=== PATIENT | female | born 1965 | race Caucasian/White ===

== ENCOUNTER 2019-05-23 15:35 | Emergency (ER) | payer OTHER, SELFPAY ==
[2019-05-23 15:50] VITALS: BP 134/81; PULSE 75; RESP 18; TEMP 37.8; O2SAT 95
--- NOTE | 2019-05-23 16:35 | PC.NURSE ---
Verbal Dr Renner- apply L thumb spica velcro splint.
--- NOTE | 2019-05-23 16:38 | ED.EXTPRO ---
HPI - Extremity Problem General Chief complaint: Extremity Problem,Nontraumatic Stated complaint: pain in left wrist Source: patient Mode of arrival: ambulatory Limitations: no limitations History of Present Illness HPI Narrative: This patient is 54-year-old complaining of left wrist pain. It started 2 days ago while laying her 5-year-old down onto a bed. Since then she has had aching discomfort made worse by movement of her wrist or thumb. It is associated with discomfort in the left medial elbow. She has never had problems with this before. She cannot recall an incident where she could have injured this wrist. There has been no other joint swelling; no arthritis or gout. She is left-hand dominant Associated symptoms: denies other symptoms Related Data Home Medications Medication Instructions Recorded Confirmed albuterol sulfate 2 puff INHALATION Q4-6H PRN 05/23/19 05/23/19 amlodipine 5 mg PO DAILY 05/23/19 05/23/19 aspirin [Aspirin Low Dose] 81 mg PO DAILY 05/23/19 05/23/19 fluticasone propion-salmeterol 1 puff INHALATION DAILY 05/23/19 05/23/19 metoprolol tartrate 50 mg PO DAILY 05/23/19 05/23/19 Allergies Allergy/AdvReac Type Severity Reaction Status Date / Time amoxicillin [From Augmentin] Allergy Rash Verified 05/23/19 16:07 ciprofloxacin Allergy Rash Verified 05/23/19 16:07 clavulanic acid Allergy Rash Verified 05/23/19 16:07 [From Augmentin] hydrocodone [From Vicodin] Allergy Rash Verified 05/23/19 16:07 morphine Allergy Rash Verified 05/23/19 16:07 Penicillins Allergy Rash Verified 05/23/19 16:07 propoxyphene Allergy Rash Verified 05/23/19 16:07 [From Darvocet-N 100] Review of Systems Constitutional: Constitutional: Reports no additional constitutional complaints Cardiovascular: Cardiovascular: Denies chest pain Respiratory: Respiratory: Denies dyspnea Gastrointestinal: Gastrointestinal: Denies abdominal pain Musculoskeletal: Musculoskeletal: Reports no additional musculoskeletal complaints Integumentary/Breasts: Skin/Breast: Reports rash PMFSH Past Medical History Medical History Asthma Hypertension Social History Social History Gender identity (if verbalized by the patient): Female Exam Const: General: no acute distress HENMT: Head: normal to inspection Eyes: Conjunctivae: conjunctivae normal Skin: Rashes: no rashes Neuro: General: moves all extremities Other: sensory exam left u.e. intact Extrem: Other: Left dorsal wrist is larger than the right; appears to have minor swelling. There is no redness Tender to palpation over the left snuff box, thumb extensor tendon as well as in the mid-dorsal wrist extension crease. No ganglion cyst appreciated. Full wrist and elbow range of motion. Tender medial epicondyle when firmly palpated. Psych: Mental Status: mental status grossly normal Course Vital Signs Vital signs: Vital Signs Temperature 37.8 C H 05/23/19 15:50 Pulse Rate 75 05/23/19 15:50 Respiratory Rate 18 05/23/19 15:50 Blood Pressure 134/81 05/23/19 15:50 Pulse Oximetry 95 05/23/19 15:50 Temperature 37.8 C H 05/23/19 15:50 Pulse Rate 75 05/23/19 15:50 Respiratory Rate 20 05/23/19 16:47 Blood Pressure 134/81 05/23/19 15:50 Pulse Oximetry 95 05/23/19 15:50 MDM - Extremity (Nontraumatic) Differential Diagnosis Differential diagnosis: Likely other (overuse injury left wrist and medial epicondyle; tendonitis; de Quervain's tenosynovitis; contusion; med. epicondylitis. ) Discharge Plan Discharge Clinical Impression: Injury of wrist Patient Disposition: Home, Self-Care Condition: Stable Instructions: Wrist Sprain (ED) Additional Instructions: See Tramaine Gutierrez in 4 - 6 days. Wear splint, avoid use of left arm/hand for lifting Acetaminophen for pain. Prescriptions: No Action amlod
[2019-05-23 16:47] VITALS: RESP 20
== END 2019-05-23 16:47 | disposition home or self-care (01) ==
PROVIDERS: Emergency Provider Family Medicine; PCP Family Medicine
DX: S69.92XA Unspecified injury of left wrist, hand and finger(s), initial encounter (principal)
CPT/HCPCS: 99282; L3908

== ENCOUNTER 2024-08-13 13:23 | Inpatient (IN) | payer BC, SELFPAY ==
[2024-08-13] VITALS (30 sets, daily range): BP systolic 107–125; BP diastolic 50–72; PULSE 101–119; RESP 18–34; TEMP 36.1–37.4; O2SAT 83–97; BMI 30.4
--- NOTE | ~2024-08-13 | XR_ITS ---
XR chest 1V portable 08/13/2024 14:05 Indication: Shortness of breath Procedure: AP portable chest Comparison: 01/21/2018 Findings: Borderline heart size. There is pulmonary edema. No pleural effusion or pneumothorax. Impression: 1: Pulmonary edema. Reviewed, dictated and finalized at location A. Impression: 1: Pulmonary edema.
--- NOTE | ~2024-08-13 | CT_ITS ---
EXAMINATION: CTA chest PE protocol DATE: 08/13/2024 14:58 CDT INDICATION: Shortness of breath. Elevated d-dimer. TECHNIQUE: Computed tomographic angiography (CTA) of the chest was performed with 100 mL Omnipaque-35 0 intravenous contrast. The dose-length product was 506.80 mGy-cm. Maximum intensity projection 3D-re constructions of the aorta and other arteries were constructed by the technologist on a separate work station. COMPARISON: Chest x-ray dated 08/13/2024. FINDINGS: Study technically limited for evaluation of pulmonary embolism. No large central pulmonary embolism identified. Evaluation of the peripheral pulmonary arteries limited due to contrast bolus ti adrianne. Heart size normal. Small hiatal hernia. No significant pleural or pericardial effusion. No thor acic lymphadenopathy. Diffuse groundglass opacification is present with mosaic attenuation of the gee g parenchyma. No pneumothorax identified. No endobronchial lesions. No pneumothorax. Accentuated thor acic kyphosis. Mild-moderate thoracic spondylosis. Mild atherosclerosis of the aorta. IMPRESSION: 1. Diffuse groundglass opacification of both lungs with interlobular septal thickening, most likely p ulmonary edema. Differential diagnosis includes pneumonia and hypersensitivity pneumonitis. 2: Study limited for evaluation of pulmonary embolism due to contrast bolus timing. No large central pulmonary embolism. Reviewed, dictated and finalized at location A. IMPRESSION: 1. Diffuse groundglass opacification of both lungs with interlobular septal thi ckening, most likely pulmonary edema. Differential diagnosis includes pneumonia and hypersensitivity pneumonitis. 2: Study limited for evaluation of pulmonary embolism due to contrast bolus ti adrianne. No large central pulmonary embolism.
--- NOTE | 2024-08-13 13:25 | ECG_ITS ---
Test Date: 2024-08-13 13:53:39 Measurements Intervals [place] Rate: 116 P: 45 MA: 145 QRS: 64 QRSD: 86 T: 124 QT: 280 QTc: 390 Interpretive Statements SINUS TACHYCARDIA LOW QRS VOLTAGE IN PRECORDIAL LEADS [QRS DEFLECTION < 1.0 mV IN CHEST LEADS] NONSPECIFIC ST & T-WAVE ABNORMALITY ABNORMAL ECG No previous ECG available for comparison Electronically Signed On 08-14-2024 10:00:00 CDT by Phi Hayden M.D.
--- OUTSIDE RECORDS SUMMARY | 2024-08-13 13:26 | XMS_ITS | Encounter Summary ---
Author Organization [facility] Address [address] [place] [address] [place] [address] Phone Care Team Providers Care Able Bodied Tankerman Name Role Phone Mike Ward Primary Care Provider [phone] Encounter Details Date Type Department Care Team (Late st Contact Info) Description 11/04/2023 Transcribe Orders [facility] [address] [place] [address] Mike Ward PAC [address] [place] [address] Pain in right hip (Primary Dx); Pain in joint of right shoulder Social History Tobacco Use Types Packs/Day Years Used Date Smoking Tobacco: Never Assessed Comments Unknown Sex and Gender Information Value Date Recorded Sex Assigned at Not on file Legal Sex Female 12:37 AM CDT Gender Identity Not on file Sexual Orientation Not on file documented as of this encounter Plan of Treatment Not on file documented as of this encounter Visit Diagnoses Diagnosis Pain in right hip- Primary Pain in joint, pelvic region and thigh Pain in joint of right shoulder Pain in joint, shoulder region documented in this encounter Care Teams Able Bodied Tankerman Relationship Specialty Start Date End Date Mike Ward PAC [address] [place] [address] PCP - General Physician Ware Finisher 06/20/16 documented as of this encounter
--- OUTSIDE RECORDS SUMMARY | 2024-08-13 13:27 | XMS_ITS | Data Portability ---
[facility] [address] [facility] [place] [address] Care Team Providers Care Die Out Worker Name Role Phone PIPO WARD Primary Care Provider Assessment No assessment recorded. Plan of Treatment Reminders Order Date Submit Date Provider Last Modified By Organization Details Last Modified Time Details Appointments None recorded. Lab influenza virus A + B + SARS-CoV-2 (COVID19) Ag panel, rapid IA, upper respirator y specimen 2024 025 [facility] In-Office Order, Internal Use Only DO Not Attach Compendium DO Not Attach Compendium, Do Not Delete/merge, [id number] 15:15:09 rsv (respirato ry syncytial virus), rapid, nasopharyn geal 2024 025 ann In-Office Order, Internal Use Only DO Not Attach Compendium DO Not Attach Compendium, Do Not Delete/merge, [id number] 15:15:08 Referral physical therapist [facility] [address], [place], [address], 4 13:58:35 physical therapist referral 2023 024 [facility], [address], [place], [address], 4 13:58:45 physical therapist referral 2023 024 [facility], [address], [facility], [place], [address], 4 10:33:01 Procedures None recorded. Surgeries None recorded. Imaging XR, hip, unilateral 2023 024 [facility], 2 [facility], [place], [address], 4 09:06:49 Medication Orders omeprazole 20 mg capsule,de layed release 2024 [facility][id number], [address], [place], [place], [id number], 5 15:15:08 ondansetro n HCl 4 mg tablet 2024 [facility]25 [id number], [address], [place], [place], [id number], 5 15:15:07 fluoxetine 20 mg capsule 2023 024 [facility] #[id number], [address], [place], [place], [id number], 4 15:47:32 sulfametho xazole 400 mg-trimeth oprim 80 mg tablet 2023 024 [facility] #[id number], [address], [place], [place], [id number], 4 15:03:20 albuterol sulfate 2.5 mg/3 mL (0.083 %) solution for nebulizati on 2023 024 [facility] #[id number], [address], [place], [place], [id number], 4 10:43:59 albuterol sulfate HFA 90 mcg/actuat ion aerosol inhaler 2023 024 [id number], [address], [place], [place], [id number], 10:43:58 Patient TargetsNo targets recorded. Patient Instructions Encounter Date Encounter Id Patient Instructions Last Modified By Organization Details Last Modified Time 08/07/2023 [id number] A healthy lifestyle: care instructions jnanney Not available 08/07/2023 10:42:43 11/04/2023 [id number] A healthy lifestyle: care instructions jnanney Not available 11/04/2023 16:17:07 01/06/2024 [id number] A healthy lifestyle: care instructions anney Not available 01/06/2024 16:26:51 02/17/2024 [id number] A healthy lifestyle: care instructions anney Not available 02/17/2024 12:16:51 learning about high blood pressure jnanney Not available 02/17/2024 12:16:32 Reason for Referral Physical Therapist Referral for Pain of left hip joint Referring Physician: Pipo Ward [facility], Encounter Date: 08/07/2023 Physical Therapist Referral for Pain of right hip joint Referring Physician: Pipo Ward [facility], Encounter Date: 11/04/2023 Physical Therapist Referral for Pain of right shoulder joint Referring Physician: Pipo Ward [facility], Encounter Date: 11/04/2023 Results Created Date Observation Date Name Description Value Unit Range Abnormal Flag Note LastModifiedBy Organization Detail LastModifiedTime 08/13/1908/12/2024 rsv (resp irato ry syncy tial virus ), rapid , nasop haryn geal RSV negati ve Not Available In-Office Order Internal Use Only DO Not Attach Compendium DO Not Attach Compendium, Do Not Delete/merge, [id number] 08/12/2024 14:54:45 08/13/1908/12/2024 influ kaylin virus A + B + SARS- CoV-2 (COVI D19) Ag panel , rapid IA, upper respi rator y speci men Flu A negati ve Not Available In-Office Order Internal Use Only DO Not Attach Compendium DO Not Attach Compendium, Do Not Delete/merge, [id number] 08/12/2024 14:54:40 08/13/1908/12/2024 influ kaylin virus A + B + SARS- CoV-2 (COVI D19) Ag panel , rapid IA, upper respi rator y speci men Flu B negati ve Not Available In-Office Order Internal Use Only DO Not Attach Compendium DO Not Attach Compendium, Do Not Delete/merge, [id number] 08/12/2024 14:54:40 08/13/1908/12/2024 influ kaylin virus A + B + SARS- CoV-2 (COVI D19) Ag panel , rapid IA, upper respi rator y speci men Rapid SARS CoV 2 Ag, QL IA, respiratory specimen negati ve Not Available In-Office Order Internal Use Only DO Not Attach Compendium DO Not Attach Compendium, Do Not Delete/merge, [id number] 08/12/2024 14:54:40 Result Notes None recorded. Problems Name Problem SNOMED Code Status Onset Date Resolution Date Notes Provider Name and Address Organization Details Recorded Time Essential hypertension 86176014 Active Janessa Bullock [place], [place] [facility] 11:37:58 Diabetes mellitus 24599378 Active Janessa Bullock [place], [place] [facility] 6 11:37:58 Acute conjunctivitis 90486089 Active Janessa Bullock [place], [place] [facility] 11:37:58 Anxiety 45434200 Active Janessa Bullock [place], [place] [facility] 11:37:58 Plantar fasciitis 737644074 Active Pipo Ward PA-C Attn: Carmen ware,[address] [facility], [place], [address], - [facility] 12:14:26 Abdominal pain 62581085 Active Janessa Bullock [place] [facility] 11:37:58 Acute sinusitis 99469752 Active Janessa Bullock [place], [place] [facility] 09/28/201 6 11:37:58 Moderate chronic obstructive pulmonary disease 881842895 Active 2016 Pipo Ward PA-C Attn: Carmen ware,[address] [facility], [place], [address], [place] - [facility] 7 11:53:07 Asthma 947905001 Active 2016 Pipo Ward PA-C Attn: Carmen ware,[address] [place], [address], [place] - [facility] 7 11:53:17 Problem Notes None recorded. Procedures Surgical History Date Name Laterality Status Provider Name and Address Organization Details Recorded Time 09/04/19 15 Total hysterectomy completed Lyn Singer APN, DEBI-C Attn: Accounting, [address] [facility], [place], [address], [place] - [facility] 09/05/2023 14:01:04 04/01/19 08 cholecystectomy completed Yulisa Jernigan [place] - [facility] 01/31/2021 11:08:23 04/01/19 00 Appendectomy completed Yulisa Jernigan [place] [facility] 01/31/2021 11:08:09 Knee Surgery completed Kinsey Nicholas MA [place] - [facility] 09/03/2014 15:34:10 Imaging Results None recorded. Procedure Notes None recorded. Medical Equipment None Reported. Allergies Allergen ID Allergen Name Allergen Category Reaction Reaction Severity Criticality Documentation Date Start Date Code Code System Note Provider Name and Address Organization Details Recorded Time 845627 Substance with sulfonami de structure and antibacte rial mechanism of action (substanc e) medicatio n vomiting Not available Not available 01/08/2024 19656 8003 SNOMED CLEM Morrell [place] [facility] 4 15:05:29 727640 clindamyc in Not available vomiting Not available Not available 01/08/2024 2582 RxNorm CLEM Morrell, [place] - [facility] 4 15:05:40 020516 Medrol medicatio n chest pain vomiting Not available Not available Not available 08/12/2024 2 RxNorm CLEM Hidalgo [place] - [facility] 5 14:26:17 00131 Product containin g penicilli n (product) medicatio n Not available Not available Not available 09/03/2014 60476 8001 SNOMED CLEM Lemus, [place] - [facility] 5 15:34:10 75257 Cipro medicatio n Not available Not available Not available 09/03/201414468 3 RxNorm CLEM Lemus, [place] [facility] 5 15:34:10 44764 morphine medicatio n Not available Not available Not available 09/03/2014 7052 RxNorm CLEM Lemus, [place] [facility] 5 15:34:10 21123 Darvocet- N medicatio n Not available Not available Not available 09/03/2014 44046 UNK CLEM Lemus, [place] - [facility] 5 15:34:10 87184 Keflex medicatio n Not available Not available Not available 09/13/2014 7 RxNorm Joi Dean [place] null, [place] - [facility] 5 13:10:05 Medications Name Sig Start Date Stop Date Status Note LastModified by Organization Details LastModified Time cyclobenzap rine 10 mg tablet Take 1 tablet 3 times a day by oral route for 30 days. 09/20 completed Not Available Not Available Not Available buspirone 5 mg tablet TAKE 1 TABLET BY MOUTH TWICE DAILY 08/12 completed Not Available Not Available Not Available albuterol sulfate 2.5 mg/3 mL (0.083 %) solution for nebulizatio n USE 3 ML VIA NEBULIZER THREE TIMES DAILY active Not Available Not Available No t Available azithromyci n 250 mg tablet TAKE 2 TABLETS (500 MG) BY ORAL ROUTE ONCE DAILY FOR 1 DAY THEN 1 TABLET (250 MG) BY ORAL ROUTE ONCE DAILY FOR 4 DAYS 03/30 completed Not Available Not Available Not Available ibuprofen 800 mg tablet TAKE 1 TABLET BY MOUTH THREE TIMES DAILY active Not Available Not Available No t Available sulfamethox azole 400 mg-trimetho prim 80 mg tablet Take 1 tablet every 12 hours by oral route for 10 days. 01/07 completed Not Available Not Available Not Available Keflex 500 mg capsule Take 1 capsule every 8 hours by oral route as directed for 10 days. 09/05 completed Not Available Not Available Not Available lisinopril 20 mg tablet TAKE ONE TABLET BY MOUTH EVERY DAY 02/16 completed Not Available Not Available Not Available ondansetron HCl 4 mg tablet Take 1 tablet twice a day by oral route for 10 days. 2024 active Not Available Not Available Not Avai lable prednisone 20 mg tablet 03/30 completed Not Available Not Available Not Available clindamycin HCl 150 mg capsule Take 1 capsule every 6 hours by oral route for 10 days. 01/07 completed Not Available Not Available Not Available amlodipine 5 mg tablet Take 1 tablet every day by oral route for 90 days. 09/20 completed Not Available Not Available Not Available sulfamethox azole 800 mg-trimetho prim 160 mg tablet Take 1 tablet every 12 hours by oral route for 10 days. 02/15 completed Not Available Not Available Not Available meloxicam 7.5 mg tablet Take 1 tablet every day by oral route for 30 days. 09/05 completed Not Available Not Available Not Available Tessalon Perles 100 mg capsule Take 1 capsule 3 times a day by oral route for 30 days. 01/09 completed Not Available Not Available Not Available erythromyci n 5 mg/gram (0.5 %) eye ointment APPLY 1 CM RIBBON INTO THE LOWER CONJUNCTI OTTO SAC(S) IN THE AFFECTED EYE(S) BY OPHTHALMI C ROUTE 3 TIMES PER DAY 09/05 completed Not Available Not Available Not Available Cipro 500 mg tablet Take 1 tablet every 12 hours by oral route for 10 days. 2015 active Not Available Not Available Not Avai lable Advair Diskus 250 mcg-50 mcg/dose powder for inhalation Inhale 1 puff twice a day by inhalatio n route for 30 days. 02/04 completed Not Available Not Available Not Available metoprolol tartrate 50 mg tablet TAKE 1 TABLET BY MOUTH TWICE DAILY active Not Available Not Available No t Available gabapentin 300 mg capsule Take 1 capsule 4 times a day by oral route for 30 days. 09/20 completed Not Available Not Available Not Available omeprazole 20 mg capsule,del ayed release Take 1 capsule every day by oral route for 90 days. 2024 active Not Available Not Available Not Avai lable diclofenac sodium 75 mg tablet,quoc yed release Take 1 tablet twice a day by oral route for 30 days. 09/20 completed Not Available Not Available Not Available montelukast 10 mg tablet Take 1 tablet every day by oral route for 90 days. 12/26 completed Not Available Not Available Not Available hydroxyzine HCl 25 mg tablet Take 1 tablet 3 times a day by oral route for 30 days. 03/30 completed Not Available Not Available Not Available methylpredn isolone 4 mg tablets in a dose pack FOLLOW PACKAGE DIRECTION S 08/12 completed Not Available Not Available Not Available albuterol sulfate HFA 90 mcg/actuati on aerosol inhaler INHALE 2 PUFFS BY MOUTH EVERY 4 HOURS active Not Available Not Available No t Available ketorolac 60 mg/2 mL intramuscul ar solution Inject 2 mL by intramusc ular route. 06/19 completed Not Available Not Available Not Available lisinopril 40 mg tablet Take 1 tablet every day by oral route for 30 days. 09/05 completed Not Available Not Available Not Available fluoxetine 20 mg capsule Take 1 capsule every day by oral route for 30 days. 03/30 completed Not Available Not Available Not Available diazepam 5 mg tablet Take 1 tablet twice a day by oral route for 30 days. 05/23 completed Not Available Not Available Not Available hydroxyzine pamoate 25 mg capsule Take 1 capsule 3 times a day by oral route as needed for 30 days. 09/20 completed Not Available Not Available Not Available neomycin-po lymyxin-hyd rocort 3.5 mg-10,000 unit/mL-1 % ear drops,susp INSTILL 4 DROPS INTO AFFECTED EAR(S) BY OTIC ROUTE 3 TIMES PER DAY 09/20 completed Not Available Not Available Not Available azithromyci n 500 mg tablet TAKE 1 TABLET BY MOUTH EVERY DAY FOR 3 DAYS 02/16 completed Not Available Not Available Not Available metoprolol tartrate 25 mg tablet TAKE ONE TABLET BY MOUTH TWICE DAILY 02/15 completed Not Available Not Available Not Available Advair HFA 230 mcg-21 mcg/actuati on aerosol inhaler Inhale 2 puffs twice a day by inhalatio n route as needed for 30 days. active Not Available Not Available No t Available Symbicort 160 mcg-4.5 mcg/actuati on HFA aerosol inhaler INHALE 2 PUFFS BY MOUTH TWICE DAILY 08/12 completed Not Available Not Available Not Available Symbicort 80 mcg-4.5 mcg/actuati on HFA aerosol inhaler Inhale 2 puffs twice a day by inhalatio n route for 30 days. 05/23 completed Not Available Not Available Not Available fluticasone 113 mcg-salmete rol 14 mcg/actuati on breath activated powdr Inhale 1 puff twice a day by inhalatio n route for 30 days. 02/16 completed Not Available Not Available Not Available Vitals Date Recorded Body height Body mass index (BMI) Body weight Oxygen saturation Oxygen saturation in Arterial blood by Pulse oximetry Heart rate Systolic blood pressure Diastolic blood pressure Provider Name and Address Organization Details Last Updated DateTime 4 170.18 cm 32 kg/m2 64611.2 4 g 98 % 98 % 78 /min 130 mm[Hg] 82 mm[Hg] Yudy Betancourt MA [facility] 4 10:27:15 Date Recorded Body height Body mass index (BMI) Body weight Oxygen saturation Oxygen saturation in Arterial blood by Pulse oximetry Heart rate Provider Name and Address Organization Details Last Updated DateTime 4 170.18 cm 31.9 kg/m2 21406.0 5 g 99 % 99 % 82 /min Yudy Betancourt MA [facility] 4 15:53:00 Date Recorded Systolic blood pressure Diastolic blood pressure Provider Name and Address Organization Details Last Updated DateTime 11/04/2023 138 mm[Hg] 70 mm[Hg] Pipo Ward PA-C Attn: Accounting,[address] [place], [address], [facility] 11/04/2023 16:18:31 Date Recorded Body height Body mass index (BMI) Body weight Oxygen saturation Oxygen saturation in Arterial blood by Pulse oximetry Heart rate Systolic blood pressure Diastolic blood pressure Provider Name and Address Organization Details Last Updated DateTime 4 170.18 cm 31.9 kg/m2 72446.3 5 g 97 % 97 % 69 /min 151 mm[Hg] 78 mm[Hg] Yudy Betancourt MA [facility] 4 16:05:32 Date Recorded Body height Body mass index (BMI) Body weight Oxygen saturation Oxygen saturation in Arterial blood by Pulse oximetry Heart rate Respiratory rate Systolic blood pressure Diastolic blood pressure Provider Name and Address Organization Details Last Updated DateTime 4 170.18 cm 31.2 kg/m2 40682.3 2 g 98 % 98 % 78 /min 14 /min 154 mm[Hg] 76 mm[Hg] Justine Brooks MA [facility] 4 11:57:27 Date Recorded Body height Body mass index (BMI) Body weight Body temperature Oxygen saturation Oxygen saturation in Arterial blood by Pulse oximetry Heart rate Respiratory rate Systolic blood pressure Diastolic blood pressure Provider Name and Address Organization Details Last Updated DateTime 5 170.18 cm 29.4 kg/m2 07836.3 7 g 97.5 [degF] 85 % 85 % 92 /min 22 /min 142 mm[Hg] 82 mm[Hg] Jutsine Brooks MA [facility] 5 14:32:48 Social History Question Answer Notes LastModified by Organizat ion Details LastModified Time Tobacco Smoking Status Never Smoker Kinsey Nicholas MA [facility], [facility] 09/03/2014 15:34:10 Are You Blind Or Do You Have Difficulty Seeing? No Information n ot available 12/12/2016 What Is Your Level Of Caffeine Consumption? Moderate Information not available 09/20/2020 How Much Tobacco Do You Chew? None Information not available 12/12/2016 In The 14 Days Before Symptom Onset, Have You Had Close Contact With A Laboratory-confirm ed COVID-19 While That Case Was Ill? No Information n ot available 09/20/2020 In The 14 Days Before Symptom Onset, Have You Had Close Contact With A Person Who Is Under Investigation For COVID-19 While That Person Was Ill? No Information not available 09/20/2020 Have You Been To An Area Known To Be High Risk For COVID-19? No Information not available 09/20/2020 Are You Deaf Or Do You Have Serious Difficulty Hearing? No Information not available 12/12/2016 What Type Of Diet Are You Following? REGULAR Information n ot available 09/29/2015 Which Illicit Or Recreational Drugs Have You Used? None Information not available 12/12/2016 Education 12 Information no t available 12/12/2016 Are There Any Guns Present In Your Home? No Information not available 09/29/2015 Hard Of Hearing Or Deaf In One Or Both Ears? No Information not available 09/29/2015 Legally Blind In One Or Both Eyes? No Information no t available 09/29/2015 Marital Status Informatio n not available 12/12/2016 What Was The Date Of Your Most Recent Tobacco Screening? 08/12/2024 Information not available 08/12/2024 Performs Monthly Self-breast Exam? Yes Information no t available 09/29/2015 What Is Your Relationship Status? Information not available 09/20/2020 Do You Use Your Seat Belt Or Car Seat Routinely? Yes Information not available 09/20/2020 Seat Belts Used Routinely Yes Information not available 09/29/2015 Are You Sexually Active? No Information not available 09/03/2022 Smoke Alarm In Home Yes Information not available 09/29/2015 Do You Have Smoke And Carbon Monoxide Detectors In Your Home? Yes Information not available 09/20/2020 Are You Passively Exposed To Smoke? No Information no t available 09/20/2020 How Much Tobacco Do You Smoke? No Information not available 09/29/2015 General Stress Level High Information not available 12/12/2016 Do You Use Sunscreen Routinely? Yes Information not available 09/29/2015 Has Tobacco Cessation Counseling Been Provided? No Information not available 01/31/2021 On What Date Was Tobacco Cessation Counseling Provided? 08/12/2024 Information not available 08/12/2024 Do You Have Difficulty Walking Or Climbing Stairs? No Information not available 12/12/2016 Sex: Female Functional Status Question Answer Note LastModified by Organizat ion Details LastModified Time Do you use any illicit or recreational drugs? No Information not available 09/20/2020 Do you or have you ever used any other forms of tobacco or nicotine? No Information not available 02/15/2023 What is your level of alcohol consumption? None Information not available 09/29/2015 Do you have difficulty doing errands alone? No Information not available 12/12/2016 Are you able to care for yourself? 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 No Information not available 12/12/2016 What is your exercise level? Occasional Information not available 11/27/2021 Mental Status Question Answer Note LastModified by Organizat ion Details LastModified Time Do you feel stressed (tense, restless, nervous, or anxious, or unable to sleep at night)? [id number] Information not available 07/25/2021 Do you have difficulty concentrating, remembering or making decisions? No Information no t available 12/12/2016 Family History Relationship Description Onset Age of this Age Resolved Age Notes LastModified by Organization Details LastModified Time Mother Diabetes mellitus [email or web address] Not available 12/01 11:37:59 Mother Heart disease [email or web address] Not available 12/01 11:37:59 Mother History of hypertension [email or web address] Not available 0 12/28/2015 11:37:59 Father Heart disease [email or web address] Not available 12/01 11:37:59 Father History of hypertension [email or web address] Not available 0 12/28/2015 11:37:59 Brother Heart disease [email or web address] Not available 12/01 11:37:59 Brother History of hypertension [email or web address] Not available 0 12/28/2015 11:37:59 Brother Hyperlipidem ia [email or web address] Not available 12/01 11:37:59 Medical History Condition Response Coronary Artery Disease N Other N Atrial Fibrillation N High Blood Pressure Y Thyroid Problems N Kidney or Bladder Problems N GI Problems N Depression N COPD N Blood Clots N Skin Problems N Eating Disorder N Anemia N Heart Attack (PR) Y Anxiety Disorder N Diabetes Y Muscle, Joint, or Bone Problems N Seizures/Epilepsy N Acid Reflux (GERD) N Cancer N Stroke N Asthma Y Allergies N ADHD N Substance Abuse N High Cholesterol N Hepatitis N Liver Disease N Schizophrenia N Headaches N Heart Failure N Osteoporosis N Gynecological History Statement/Question Response Current Control Method Hysterectom y Date of Last Mammogram Obstetrics History GPAL:G 0 P 0 0 0 0 Immunizations Vaccine Type Date Status Note Provider Nam e and Address Organization Details Recorded Time Influenza, split virus, trivalent, PF 04/13/2013 completed Liss Frey MA [facility], [place] - [facility] 01/23/2022 15:29:44 Past Encounters Encounter ID Performer Location Encounter Start Date Encounter Closed Date Diagnosis/Indication Diagnosis SNOMED-CT Code Diagnosis ICD10 Code Diagnosis Note [id number] Carlos Burciaga MD [facility] [address] [place] [address] 09/03/2014 15:07:58 09/06/2014 11:08:13 Essential hypertension 49149966 Diabetes mellitus 54532314 [id number] Carlos Burciaga MD [facility] [address] [place] [address] 09/24/2014 14:31:52 09/30/2014 17:27:04 Acute conjunctivitis 70291571 Essential hypertension 39123206 [id number] Carlos Burciaga MD [facility] [address] [place] [address] 04/05/2015 10:14:47 04/05/2015 11:41:01 Essential hypertension 84414214 I10 Anxiety 07090142 F41.9 [id number] Pipo Ward PA-C [facility] [address] [place] [address] 06/24/2015 10:18:57 06/24/2015 11:40:40 Essential hypertension 22721802 I10 Diabetes mellitus 670054 09 E11.9 Plantar fasciitis 807387 003 M72.2 [id number] Pipo Ward PA-C [facility] [address] [place] [address] 09/06/2015 16:35:56 09/06/2015 17:04:45 Abdominal pain 79270260 R10.9 [id number] Carlos Burciaga MD [facility] [address] [place] [address] 09/29/2015 16:32:11 09/29/2015 17:02:21 Anxiety 16369231 F41.9 Plantar fasciitis 108010 003 M72.2 Acute sinusitis 00350038 J01.90 [id number] Pipo Ward PA-C [facility] [address] [place] [address] 12/28/2015 11:19:57 12/28/2015 12:15:53 Plantar fasciitis 815933824 M72.2 [id number] Carlos Burciaga MD [facility] [address] [place] [address] 02/06/2016 11:12:41 02/06/2016 12:09:33 Essential hypertension 76291149 I10 Acute sinusitis 61717756 J01.90 [id number] Carlos Burciaga MD [facility] [address] [place] [address] 03/29/2016 11:04:15 03/29/2016 12:33:40 Pain in right foot 8930606731 29861 M79.671 Pain of ri ght hip joint 3562094399 94394 M25.484 [id number] Pipo Ward PA-C [facility] [address] [place] [address] 05/28/2016 11:27:32 05/28/2016 14:09:16 Spasm of back muscles 076569974 M62.830 [id number]|2024-08-13 13:27:00|2024-08-13 13:26:00|XMS_ITS|NEREIDA CASTAÑEDA|External Medical Summaries|[id number]|" Continuity of Care Document Created on: August 13, 2024 Niru Agustin .[id number] : 1965 Sex: Female Author Organization [facility] JOSHEllie Srinivasan [facility] Address [address] [place], [place] [address] Care Team Providers Care Die Out Worker Name Role Phone ESTEPHANIEPIPO Primary Care Provider [phone] Assessment No assessment recorded. Plan of Treatment Reminders Order Date Submit Date Provider Last Modified By Organization Details Last Modified Time Details Appointments None recorded. Lab influenza virus A + B + SARS-CoV-2 (COVID19) Ag panel, rapid IA, upper respiratory specimen 2024 025 ann In-Office Order, Internal Use Only DO Not Attach Compendium DO Not Attach Compendium, Do Not Delete/merge, [id number] 5 15:15:09 rsv (respirator y syncytial virus), rapid, nasopharyng eal 2024 025 ann In-Office Order, Internal Use Only DO Not Attach Compendium DO Not Attach Compendium, Do Not Delete/merge, [id number] 5 15:15:08 Referral None recorded. Procedures None recorded. Surgeries None recorded. Imaging None recorded. Medication Orders omeprazole 20 mg capsule,del ayed release 2024 025 [id number], [address], [place], [place], [id number], 5 15:15:08 ondansetron HCl 4 mg tablet 2024 025 [id number], [address], [place], [place], [id number], 5 15:15:07 Patient TargetsNo targets recorded. Patient InstructionsNo instructions recorded. Reason for Referral None Reported. Results Created Date Observation Date Name Description Value Unit Range Abnormal Flag Note LastModifiedBy Organization Detail LastModifiedTime 08/13/19 25 08/12/2024 rsv (resp irato ry syncy tial virus ), rapid , nasop haryn geal RSV negati ve Not Available In-Office Order Internal Use Only DO Not Attach Compendium DO Not Attach Compendium, Do Not Delete/merge, 08/12/2024 14:54:45 08/13/19 25 08/12/2024 influ kaylin virus A + B + SARS- CoV-2 (COVI D19) Ag panel , rapid IA, upper respi rator y speci men Flu A negati ve Not Available In-Office Order Internal Use Only DO Not Attach Compendium DO Not Attach Compendium, Do Not Delete/merge, 08/12/2024 14:54:40 08/13/19 25 08/12/2024 influ kaylin virus A + B + SARS- CoV-2 (COVI D19) Ag panel , rapid IA, upper respi rator y speci men Flu B negati ve Not Available In-Office Order Internal Use Only DO Not Attach Compendium DO Not Attach Compendium, Do Not Delete/merge, 08/12/2024 14:54:40 08/13/19 25 08/12/2024 influ kaylin virus A + B + SARS- CoV-2 (COVI D19) Ag panel , rapid IA, upper respi rator y speci men Rapid SARS CoV 2 Ag, QL IA, respiratory specimen negati ve Not Available In-Office Order Internal Use Only DO Not Attach Compendium DO Not Attach Compendium, Do Not Delete/merge, 08/12/2024 14:54:40 Result Notes None recorded. Problems Name Problem SNOMED Code Status Onset Date Resolution Date Notes Provider Name and Address Organization Details Recorded Time Essential hypertension 65714808 LCEM Juares, [place] 6 11:37:58 Diabetes mellitus 16152415 CLEM Juares, [place] 6 11:37:58 Acute conjunctivitis 13568010 CLEM Juares, [place] 6 11:37:58 Anxiety 24858434 Ashley Bullock, [place] null, [place] - [facility] 6 11:37:58 Plantar fasciitis 411215003 Active Pipo Ward PA-C Attn: [address] ware,[address] [place], [address], [place] - [facility] 6 12:14:26 Abdominal pain 63792685 Active Janessa Bullock [place] null, [place] [facility] 6 11:37:58 Acute sinusitis 34971951 Active Janessa Bullock [place], [place] [facility] 6 11:37:58 Moderate chronic obstructive pulmonary disease 441192998 Active 2016 Pipo Ward PA-C Attn: Accountjuliana g,[address] [place], [address], [place] - [facility] 7 11:53:07 Asthma 610548437 Active 2016 Pipo Ward PA-C Attn: [employer] g,[address] [place], [address], [place] [facility] 7 11:53:17 Problem Notes None recorded. Procedures Surgical History Date Name Laterality Status Provider Name and Address Organization Details Recorded Time 09/04/19 15 Total hysterectomy completed Lyn Singer APN, SAUMYAC Attn: [employer], [address] [place], [address], [facility] - [facility] 09/05/2023 14:01:04 04/01/19 08 cholecystectomy completed Yulisa Jernigan [place] 01/31/2021 11:08:23 04/01/19 00 Appendectomy completed Yulisa Jernigan MA [place] 01/31/2021 11:08:09 Knee Surgery completed Kinsey Nicholas MA [place] - [place] 09/03/2014 15:34:10 Imaging Results None recorded. Procedure Notes None recorded. Medical Equipment None Reported. Allergies Allergen ID Allergen Name Allergen Category Reaction Reaction Severity Criticality Documentation Date Start Date Code Code System Note Provider Name and Address Organization Details Recorded Time 861738 Substance with sulfonami de structure and antibacte rial mechanism of action (substanc e) medicatio n vomiting Not available Not available 01/08/2024 18303 8003 SNOMED CLEM [place], [place] - [facility] 4 15:05:29 121534 clindamyc in Not available vomiting Not available Not available 01/08/2024 2582 RxNorm CLEM [place], [place] - [facility] 4 15:05:40 308655 Medrol medicatio n chest pain vomiting Not available Not available Not available 08/12/202469567 2 RxNorm Justine Brooks [place] null, [place] - [facility] 5 14:26:17 87541 Product containin g penicilli n (product) medicatio n Not available Not available Not available 09/03/2014 40625 8001 SNOMED CLEM [place], [place] - [facility] 5 15:34:10 52719 Cipro medicatio n Not available Not available Not available 09/03/201467973 3 RxNorm CLEM [place], [place] - [facility] 5 15:34:10 85129 morphine medicatio n Not available Not available Not available 09/03/2014 7052 RxNorm CLEM [place], [place] [facility] 5 15:34:10 12685 Darvocet- N medicatio n Not available Not available Not available 09/03/2014 95545 UNK CLEM [place], [place] - [facility] 5 15:34:10 30427 Keflex medicatio n Not available Not available Not available 09/13/201402305 7 RxNorm Joi Jermaine CLEM [place], [place] - [facility] 5 13:10:05 Medications Name Sig Start Date Stop Date Status Note LastModified by Organization Details LastModified Time cyclobenzap rine 10 mg tablet Take 1 tablet 3 times a day by oral route for 30 days. 09/20 completed Not Available Not Available Not Available buspirone 5 mg tablet TAKE 1 TABLET BY MOUTH TWICE DAILY 08/12 completed Not Available Not Available Not Available albuterol sulfate 2.5 mg/3 mL (0.083 %) solution for nebulizatio n USE 3 ML VIA NEBULIZER THREE TIMES DAILY active Not Available Not Available No t Available azithromyci n 250 mg tablet TAKE 2 TABLETS (500 MG) BY ORAL ROUTE ONCE DAILY FOR 1 DAY THEN 1 TABLET (250 MG) BY ORAL ROUTE ONCE DAILY FOR 4 DAYS 03/30 completed Not Available Not Available Not Available ibuprofen 800 mg tablet TAKE 1 TABLET BY MOUTH THREE TIMES DAILY active Not Available Not Available No t Available sulfamethox azole 400 mg-trimetho prim 80 mg tablet Take 1 tablet every 12 hours by oral route for 10 days. 01/07 completed Not Available Not Available Not Available Keflex 500 mg capsule Take 1 capsule every 8 hours by oral route as directed for 10 days. 09/05 completed Not Available Not Available Not Available lisinopril 20 mg tablet TAKE ONE TABLET BY MOUTH EVERY DAY 02/16 completed Not Available Not Available Not Available ondansetron HCl 4 mg tablet Take 1 tablet twice a day by oral route for 10 days. 2024 active Not Available Not Available Not Avai lable prednisone 20 mg tablet 03/30 completed Not Available Not Available Not Available clindamycin HCl 150 mg capsule Take 1 capsule every 6 hours by oral route for 10 days. 01/07 completed Not Available Not Available Not Available amlodipine 5 mg tablet Take 1 tablet every day by oral route for 90 days. 09/20 completed Not Available Not Available Not Available sulfamethox azole 800 mg-trimetho prim 160 mg tablet Take 1 tablet every 12 hours by oral route for 10 days. 02/15 completed Not Available Not Available Not Available meloxicam 7.5 mg tablet Take 1 tablet every day by oral route for 30 days. 09/05 completed Not Available Not Available Not Available Tessalon Perles 100 mg capsule Take 1 capsule 3 times a day by oral route for 30 days. 01/09 completed Not Available Not Available Not Available erythromyci n 5 mg/gram (0.5 %) eye ointment APPLY 1 CM RIBBON INTO THE LOWER CONJUNCTI OTTO SAC(S) IN THE AFFECTED EYE(S) BY OPHTHALMI C ROUTE 3 TIMES PER DAY 09/05 completed Not Available Not Available Not Available Cipro 500 mg tablet Take 1 tablet every 12 hours by oral route for 10 days. 2015 active Not Available Not Available Not Avai lable Advair Diskus 250 mcg-50 mcg/dose powder for inhalation Inhale 1 puff twice a day by inhalatio n route for 30 days. 02/04 completed Not Available Not Available Not Available metoprolol tartrate 50 mg tablet TAKE 1 TABLET BY MOUTH TWICE DAILY active Not Available Not Available No t Available gabapentin 300 mg capsule Take 1 capsule 4 times a day by oral route for 30 days. 09/20 completed Not Available Not Available Not Available omeprazole 20 mg capsule,del ayed release Take 1 capsule every day by oral route for 90 days. 2024 active Not Available Not Available Not Avai lable diclofenac sodium 75 mg tablet,quoc yed release Take 1 tablet twice a day by oral route for 30 days. 09/20 completed Not Available Not Available Not Available montelukast 10 mg tablet Take 1 tablet every day by oral route for 90 days. 12/26 completed Not Available Not Available Not Available hydroxyzine HCl 25 mg tablet Take 1 tablet 3 times a day by oral route for 30 days. 03/30 completed Not Available Not Available Not Available methylpredn isolone 4 mg tablets in a dose pack FOLLOW PACKAGE DIRECTION S 08/12 completed Not Available Not Available Not Available albuterol sulfate HFA 90 mcg/actuati on aerosol inhaler INHALE 2 PUFFS BY MOUTH EVERY 4 HOURS active Not Available Not Available No t Available ketorolac 60 mg/2 mL intramuscul ar solution Inject 2 mL by intramusc ular route. 06/19 completed Not Available Not Available Not Available lisinopril 40 mg tablet Take 1 tablet every day by oral route for 30 days. 09/05 completed Not Available Not Available Not Available fluoxetine 20 mg capsule Take 1 capsule every day by oral route for 30 days. 03/30 completed Not Available Not Available Not Available diazepam 5 mg tablet Take 1 tablet twice a day by oral route for 30 days. 05/23 completed Not Available Not Available Not Available hydroxyzine pamoate 25 mg capsule Take 1 capsule 3 times a day by oral route as needed for 30 days. 09/20 completed Not Available Not Available Not Available neomycin-po lymyxin-hyd rocort 3.5 mg-10,000 unit/mL-1 % ear drops,susp INSTILL 4 DROPS INTO AFFECTED EAR(S) BY OTIC ROUTE 3 TIMES PER DAY 09/20 completed Not Available Not Available Not Available azithromyci n 500 mg tablet TAKE 1 TABLET BY MOUTH EVERY DAY FOR 3 DAYS 02/16 completed Not Available Not Available Not Available metoprolol tartrate 25 mg tablet TAKE ONE TABLET BY MOUTH TWICE DAILY 02/15 completed Not Available Not Available Not Available Advair HFA 230 mcg-21 mcg/actuati on aerosol inhaler Inhale 2 puffs twice a day by inhalatio n route as needed for 30 days. active Not Available Not Available No t Available Symbicort 160 mcg-4.5 mcg/actuati on HFA aerosol inhaler INHALE 2 PUFFS BY MOUTH TWICE DAILY 08/12 completed Not Available Not Available Not Available Symbicort 80 mcg-4.5 mcg/actuati on HFA aerosol inhaler Inhale 2 puffs twice a day by inhalatio n route for 30 days. 05/23 completed Not Available Not Available Not Available fluticasone 113 mcg-salmete rol 14 mcg/actuati on breath activated powdr Inhale 1 puff twice a day by inhalatio n route for 30 days. 02/16 completed Not Available Not Available Not Available Vitals Date Recorded Body height Body mass index (BMI) Body weight Body temperature Oxygen saturation Oxygen saturation in Arterial blood by Pulse oximetry Heart rate Respiratory rate Systolic blood pressure Diastolic blood pressure Provider Name and Address Organization Details Last Updated DateTime 5 170.18 cm 29.4 kg/m2 22776.3 7 g 97.5 [degF] 85 % 85 % 92 /min 22 /min 142 mm[Hg] 82 mm[Hg] Justine Brooks MA [facility] 5 14:32:48 Social History Question Answer Notes LastModified by Organizat ion Details LastModified Time Tobacco Smoking Status Never Smoker Kinsey Nicholas [place] null, [place] 09/03/2014 15:34:10 Are You Blind Or Do You Have Difficulty Seeing? No Information n ot available 12/12/2016 What Is Your Level Of Caffeine Consumption? Moderate Information not available 09/20/2020 How Much Tobacco Do You Chew? None Information not available 12/12/2016 In The 14 Days Before Symptom Onset, Have You Had Close Contact With A Laboratory-confirm ed COVID-19 While That Case Was Ill? No Information n ot available 09/20/2020 In The 14 Days Before Symptom Onset, Have You Had Close Contact With A Person Who Is Under Investigation For COVID-19 While That Person Was Ill? No Information not available 09/20/2020 Have You Been To An Area Known To Be High Risk For COVID-19? No Information not available 09/20/2020 Are You Deaf Or Do You Have Serious Difficulty Hearing? No Information not available 12/12/2016 What Type Of Diet Are You Following? REGULAR Information n ot available 09/29/2015 Which Illicit Or Recreational Drugs Have You Used? None Information not available 12/12/2016 Education 12 Information no t available 12/12/2016 Are There Any Guns Present In Your Home? No Information not available 09/29/2015 Hard Of Hearing Or Deaf In One Or Both Ears? No Information not available 09/29/2015 Legally Blind In One Or Both Eyes? No Information no t available 09/29/2015 Marital Status Informatio n not available 12/12/2016 What Was The Date Of Your Most Recent Tobacco Screening? 08/12/2024 Information not available 08/12/2024 Performs Monthly Self-breast Exam? Yes Information no t available 09/29/2015 What Is Your Relationship Status? Information not available 09/20/2020 Do You Use Your Seat Belt Or Car Seat Routinely? Yes Information not available 09/20/2020 Seat Belts Used Routinely Yes Information not available 09/29/2015 Are You Sexually Active? No Information not available 09/03/2022 Smoke Alarm In Home Yes Information not available 09/29/2015 Do You Have Smoke And Carbon Monoxide Detectors In Your Home? Yes Information not available 09/20/2020 Are You Passively Exposed To Smoke? No Information no t available 09/20/2020 How Much Tobacco Do You Smoke? No Information not available 09/29/2015 General Stress Level High Information not available 12/12/2016 Do You Use Sunscreen Routinely? Yes Information not available 09/29/2015 Has Tobacco Cessation Counseling Been Provided? No Information not available 01/31/2021 On What Date Was Tobacco Cessation Counseling Provided? 08/12/2024 Information not available 08/12/2024 Do You Have Difficulty Walking Or Climbing Stairs? No Information not available 12/12/2016 Sex: Female Functional Status Question Answer Note LastModified by Organizat ion Details LastModified Time Do you use any illicit or recreational drugs? No Information not available 09/20/2020 Do you or have you ever used any other forms of tobacco or nicotine? No Information not available 02/15/2023 What is your level of alcohol consumption? None Information not available 09/29/2015 Do you have difficulty doing errands alone? No Information not available 12/12/2016 Are you able to care for yourself? 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 No Information not available 12/12/2016 What is your exercise level? Occasional Information not available 11/27/2021 Mental Status Question Answer Note LastModified by Organizat ion Details LastModified Time Do you feel stressed (tense, restless, nervous, or anxious, or unable to sleep at night)? [id number] Information not available 07/25/2021 Do you have difficulty concentrating, remembering or making decisions? No Information no t available 12/12/2016 Family History Relationship Description Onset Age of this Age Resolved Age Notes LastModified by Organization Details LastModified Time Mother Diabetes mellitus [email or web address] Not available 12/01 11:37:59 Mother Heart disease [email or web address] Not available 12/01 11:37:59 Mother History of hypertension [email or web address] Not available 0 12/28/2015 11:37:59 Father Heart disease [email or web address] Not available 12/01 11:37:59 Father History of hypertension [email or web address] Not available 0 12/28/2015 11:37:59 Brother Heart disease [email or web address] Not available 12/01 11:37:59 Brother History of hypertension [email or web address] Not available 0 12/28/2015 11:37:59 Brother Hyperlipidem ia [email or web address] Not available 12/01 11:37:59 Medical History Condition Response Coronary Artery Disease N Other N High Blood Pressure Y Atrial Fibrillation N Thyroid Problems N Kidney or Bladder Problems N GI Problems N Depression N COPD N Blood Clots N Skin Problems N Eating Disorder N Anemia N Heart Attack (PR) Y Anxiety Disorder N Diabetes Y Muscle, Joint, or Bone Problems N Seizures/Epilepsy N Acid Reflux (GERD) N Cancer N Stroke N Asthma Y Allergies N ADHD N Substance Abuse N High Cholesterol N Hepatitis N Liver Disease N Schizophrenia N Headaches N Heart Failure N Osteoporosis N Gynecological History Statement/Question Response Current Control Method Hysterectom y Date of Last Mammogram Obstetrics History GPAL:G 0 P 0 0 0 0 Immunizations Vaccine Type Date Status Note Provider Nam e and Address Organization Details Recorded Time Influenza, split virus, trivalent, PF 04/13/2013 completed Liss Frey MA [facility], [place] - [place] 01/23/2022 15:29:44 Past Encounters Encounter ID Performer Location Encounter Start Date Encounter Closed Date Diagnosis/Indication Diagnosis SNOMED-CT Code Diagnosis ICD10 Code Diagnosis Note [id number] Carlos Burciaga MD [facility] [address] [place] [address] 08/12/2024 14:21:21 08/12/2024 15:16:35 Acute lower respiratory tract infection 033906028 J22 Hypoxia 412818040 R09.02 refuses ER History of asthma 750260 007 Z87.09 Gastroesop hageal reflux disease without esophagitis 591784517 K21.9 Bilious vomiting 5238543 2 R11.14 Overweight in adulthood with body mass index of 25 or more but less than 30 421493999 Z68.29 Health Concerns Section Related Observation LastModified by Organization Detai ls LastModified Time None Recorded Concern Status LastModified by Organization Details LastModified Time None Recorded Payers Encounter Date Sequence Insurance Name Policy Number Policy Curtis Covered Member ID Curtis Member ID Guarantor Name 08/12/2024 1 [facility] (MEDICAID REPLACEMENT - HMO) [id number] Niruromeo Manleysey [id number] Niru Nikole Notes Date Note Type Note Provider Name and Address Organization Details Recorded Time 08/12/2024 text/html started with severe asthma 3 weeks ago and has been declining since...also fever vomiting...today is an improvement but feels horrible..says she WILL NOT go to the hospital because she has an autistic grandson at home that no one else can take care of but her..also describes heartburn and stomach pain.. Pipo Ward PA-C Attn: [employer] [place], [address], [facility] - [facility] 08/12/2024 15:16:32 OBGyn Episode No OBEpisode recorded. "
--- OUTSIDE RECORDS SUMMARY | 2024-08-13 13:27 | XMS_ITS | Clinical Summary ---
Author Organization [facility] Address [address] [place] [address] Phone Care Team Providers Care Hospitality Job Titles Name Role Phone Mike Ward Primary Care Provider [phone] Social History Tobacco Use Types Packs/Day Years Used Date Smoking Tobacco: Never Assessed Comments Unknown Sex and Gender Information Value Date Recorded Sex Assigned at Not on file Legal Sex Female 12:37 AM CDT Gender Identity Not on file Sexual Orientation Not on file Plan of Treatment Health Maintenance Due Date Last Done Comments Hepatitis C Virus (HCV) Screening 1966 TdaP Immunization 1966 Hepatitis B Immunization (1 of 3 - 19+ 3-dose series) 1985 Pap Smear 1987 Cervical Cancer Screening (CCS) 01/16/1996 HPV/Cotest 01/16/1996 Colonoscopy 2011 Colorectal Cancer Screening 2011 Cologuard 01/16/2016 Immunochemical Fecal Occult Blood 01/16/2016 Mammogram 01/16/2016 Pneumococcal Immunization (5 0+ years) (1 of 1 - PCV) 01/16/2016 Zoster Immunization (1 of 2) 01/16/2016 Influenza Immunization (#1) 2023 SARS-COV-2 Immunization ( - 2023- season) 2023 Respiratory Syncytial Virus (RSV) Immunization (Adult) (1 - 1-dose 75+ series) 2041 Meningococcal Immunization (ACWY) Aged Out No longer eligible based on patient's age to complete this topic Pneumococcal Immunization Combined Aged Out No longer eligible based on patient's age to complete this topic Rotavirus Immunization Aged Out No lo nger eligible based on patient's age to complete this topic Insurance [place]ID [place] JESS[place] BUSTAMANTE [id number] Care Teams Hospitality Job Titles Relationship Specialty Start Date End Date Mike Ward, [facility] [address] [place] [id number] PCP - General Physician Professor Of Fine Art 06/20/16
[2024-08-13 13:43] LABS: HCO3 ABG 19.4 mmol/L (23-29); Oxygen Saturation ABG 91.9 % (95-97); Oxyhemoglobin 90.7 % (94-100); PCO2 ABG 25.8 mmHg (35-45); PO2 ABG 60.1 mmHg (80-90)
[2024-08-13 13:44] LABS: Device NASAL CANNULA; Liters per Minute 4.5 LPM; Modified Allen's Test Pass; Site Drawn RIGHT RADIAL
[2024-08-13 13:47] LABS: Hemoglobin 14.8 g/dL (12.0-15.0); Mean Corpuscular HGB Conc 31.5 g/dL (32-36); Mean Corpuscular Hemoglobin 29.5 pg (27.0-31.0); Mean Corpuscular Volume 93.6 fL (78.0-102.0); Mean Platelet Volume 9.9 fl (9.2-11.8); Platelet Count Result 334 K/mm3 (150-420); Red Blood Count 5.02 M/mm3 (4.20-5.40); Red Cell Distribution Width 13.5 % (11.6-14.4)
[2024-08-13] MEDS: MAGNESIUM SULF 2 GM/WATER 50ML 2 GM/50 ML BAG IVPB (13:47)
--- OUTSIDE RECORDS SUMMARY | 2024-08-13 13:50 | XMS_ITS | Clinical Summary ---
Author Organization [facility] Address [address] [place] [address] Phone Care Team Providers Care Market Development Executive Name Role Phone Mike Ward Primary Care Provider [phone] Social History Tobacco Use Types Packs/Day Years [...] Insurance [place] J[place] BUSTAMANTE [id number] Care Teams Market Development Executive Relationship Specialty Start Date End Date Mike Ward, [facility] [address] [place] [address] PCP - General Physician Quality Audit Representative 06/20/16
--- OUTSIDE RECORDS SUMMARY | 2024-08-13 13:50 | XMS_ITS | Encounter Summary ---
Author Organization [facility] Address [address] [place] [address] [place] [address] Phone Care Team Providers Care Test Case Developer Name Role Phone Mike Ward Primary Care Provider [phone] Encounter Details Date Type Department Care Team (Late st Contact Info) Description 11/04/2023 Transcribe Orders [facility] [address] [place] [address] Mike Ward PAC [address] [place] [address] Pain in right hip (Primary Dx); Pain [...] region documented in this encounter Care Teams Test Case Developer Relationship Specialty Start Date End Date Mike Ward PAC [address] [place] [address] PCP - General Physician Air Drier 06/20/16 documented as of this encounter
[2024-08-13] MEDS: IPRATROPIUM 0.5 MG/ALBUTEROL SULFATE 2.5 MG AMPUL.NEB 3 ML INHALATION ×2 (13:58→18:38)
[2024-08-13 13:59] LABS: White Blood Count 23.5 K/mm3 (4.8-10.8)
[2024-08-13 14:01] LABS: INR 1.1; Partial Thromboplastin Time 27.3 Sec (23.9-30.70); Prothrombin Time 12.3 Seconds (9.50-12.1)
[2024-08-13 14:06] LABS: Band Neutrophils Percent 1 % (0-6); Eosinophils Absolute Manual 0.23 K/mm3 (0.02-0.50); Eosinophils Percent Manual 1 % (1-6); Lymphocytes Absolute Manual 1.17 K/mm3 (1.1-4.5); Lymphocytes Percent Manual 5 % (18-44); Monocytes Percent Manual 3 % (3-9); Neutrophils Absolute Manual 21.38 K/mm3 (1.7-7.2); Neutrophils Percent Manual 90 % (46-73); Platelet Estimate Adequate (Adequate); Total Cells Counted 100
[2024-08-13 14:08] LABS: D Dimer 0.82 mg/L (0.19-0.50)
[2024-08-13 14:11] LABS: Lactic Acid Reflex 2.9 mmol/L (0.4-2.0)
[2024-08-13 14:12] LABS: Alanine Aminotransferase 24 U/L (6-35); Albumin Level 3.5 g/dL (3.5-5.1); Alkaline Phosphatase 89 U/L (38-126); Anion Gap 8 mmol/L (4-12); Aspartate Amino Transferase 29 U/L (14-36); Bilirubin,Total 0.9 mg/dL (0.2-1.3); Blood Urea Nitrogen 9 mg/dL (7-17); Calcium 8.2 mg/dL (8.4-10.2); Carbon Dioxide 24 mmol/L (22-30); Chloride 101 mmol/L (98-107); Estimated CRCL calculation 69 ml/min; Estimated Glomerular Filt Rate > 60; Glucose 125 mg/dL (65-110); Magnesium 2.2 mg/dL (1.6-2.3); Osmolality Calculated 275 mOsm/kg (285-295); Potassium 3.9 mmol/L (3.4-5.0); Sodium 133 mmol/L (137-145); Total Protein 7.4 g/dL (6.3-8.2)
[2024-08-13 14:23] LABS: NT Pro B Type Natriuretic Pept 71 pg/mL (19.9-100); Troponin I < 0.012 ng/mL (0.000-0.034)
[2024-08-13 14:42] LABS: Add Urine Microscopic? YES; Appearance Urine Clear (Clear); Bilirubin Urine 1+ (Negative); Blood Urine Trace-intact (Negative); Color Urine Brown (Yellow); Glucose Urine UA Negative (Negative); Ketones Urine 1+ (Negative); Leukocyte Esterase Ur 2+ LEU/UL (Negative); Nitrate Urine Negative (Negative); Protein Urine Trace (Negative); Specific Grav Ur >= 1.030 (1.010-1.020)
[2024-08-13 14:51] LABS: Bacteria Urine 4+ /hpf; Hyaline Casts Urine 0-2 /lpf; RBC Urine 0-2 /hpf (0-2); Squamous Epithelial Cell Urine Moderate /hpf (Few); WBC Urine 51-75 /hpf (0-3)
--- NOTE | 2024-08-13 15:22 | ED.SOB ---
HPI - SOB/Dyspnea General Chief Complaint: Shortness of Breath/Dyspnea Stated Complaint: resp distress Time Seen by Provider: 08/13/24 13:24 Source: patient and EMS Mode of arrival: EMS Limitations: no limitations History of Present Illness HPI Narrative: this is a 59-year-old female who brought in by EMS with shortness of breath, a 2 week history of shortness of breath worsen last 24hours cough that is nonproductive no history of congestive heart failure, does have a history of asthma currently on inhalers and medication for hypertension. She has no fever chills no chest pain no abdominal pain no dysuria or hematuria no nausea vomiting no diarrhea constipation. MD elicited complaint: shortness of breath Pertinent past history: asthma Onset (ago): week(s) Timing: constant Severity: moderate Exacerbating factors: nothing Relieving factors: oxygen, rest and bronchodilators Known history of: asthma Related Data Home Medications Medication Instructions Recorded Confirmed Last Taken Type albuterol sulfate 90 mcg/actuation 2 puff inhalation Q4-6H PRN 05/23/19 08/13/24 Unknown History aerosol inhaler Shortness Of Breath aspirin 81 mg tablet,delayed 81 mg PO DAILY 05/23/19 08/13/24 Unknown History release (Kory Low Dose Aspirin) fluticasone 113 mcg-salmeterol 14 1 puff inhalation DAILY 05/23/19 08/13/24 Unknown History mcg/actuation breath activated powdr metoprolol tartrate 50 mg tablet 50 mg PO DAILY 05/23/19 08/13/24 Unknown History omeprazole 20 mg capsule,delayed 20 mg PO DAILY 08/13/24 08/13/24 Unknown History release Allergies Allergy/AdvReac Type Severity Reaction Status Date / Time amoxicillin (From Augmentin) Allergy Rash Verified 08/13/24 14:22 ciprofloxacin Allergy Rash Verified 08/13/24 14:22 clavulanic acid (From Allergy Rash Verified 08/13/24 14:22 Augmentin) hydrocodone (From Vicodin) Allergy Rash Verified 08/13/24 14:22 morphine Allergy Rash Verified 08/13/24 14:22 Penicillins Allergy Rash Verified 08/13/24 14:22 propoxyphene (From Allergy Rash Verified 08/13/24 14:22 Darvocet-N 100) Review of Systems Review of Systems: All systems reviewed & are unremarkable except as noted in HPI and below PMFSH Past Medical History Medical History (Updated 08/13/24 @ 15:28 by Osman Maagllanes MD) Asthma Hypertension Social History Social History Smoking status: Never smoker Second hand tobacco smoke exposure: No Alcohol intake: never Substance use: never Do You Feel Safe in your Home?: Yes Lack of Transportation: No Lack of Food: Never True Current Housing: I Have Housing Concerned About Future Housing: No Difficulty Paying Gas/Electric Bills: No Difficulty Paying for Meds: No Currently Unemployed: No Education: High School Diploma/GED Difficulty w/ Childcare or Family Care: No Gender identity (if verbalized by the patient): Female Spiritual care concerns: No Exam Const: General: no acute distress and ill appearing Nutritional Appearance: well nourished and obese Orientation/consciousness: patient oriented x3 HENMT: Head: normal to inspection Eyes: Conjunctivae: conjunctivae normal Pupils: Equal, round and reactive pupils present EOM: EOMs intact bilaterally Neck: Neck: normal visual inspection Chest: Chest palpation & inspection: normal inspection of the chest Resp: Effort & Inspection: normal respiratory effort Auscultation: rhonchi and breath sounds absent Cardio: Rate: regular rate and tachycardic Rhythm: regular rhythm GI: GI Palp: Yes Soft to palpation Auscultation: normal bowel sounds Urinary Catheter: Urinary Catheter: patent and draining Back/Spine/Pelvis: Back: no CVA tenderness Skin: General skin exam: normal color Rashes: no rashes Neuro: General: patient oriented x3 and moves all extremities Course Course Emergency Course: Patient with elevated white blood cell count and shortness of breath had a CTA which shows no pulmonary infiltrates, patient received DuoNebs during her route via EMS and during her ER stay, was given Solu-Medrol 125 and magnesium. Lactic acid was 2.9 with a BNP of 71 a D-dimer was 0.8 ABGs did show that there was a respiratory alkalosis. Will start on Zithromax IV since there is a quinolone and penicillin allergy. Vital Signs Vital signs: Vital Signs Pulse Oximetry 91 08/13/24 13:25 Oxygen Delivery Nasal Cannula 08/13/24 13:25 Oxygen Flow Rate 5 08/13/24 13:25 Temperature 36.6 C 08/14/24 00:00 Pulse Rate 76 08/14/24 05:44 Respiratory Rate 20 08/14/24 05:44 Blood Pressure 125/69 08/14/24 00:00 Pulse Oximetry 95 08/14/24 05:44 Oxygen Delivery Nasal Cannula 08/14/24 00:00 Oxygen Flow Rate 5 08/14/24 05:44 MDM - SOB/Dyspnea Lab Data 08/14/24 06:41 08/14/24 06:41 Labs: Lab Results 08/13/24 08/13/24 Range/Units 13:25 13:35 WBC 23.5 H* (4.8-10.8) K/mm3 RBC 5.02 (4.20-5.40) M/mm3 Hgb 14.8 (12.0-15.0) g/dL Hct 47.0 (35.0-49.0) % MCV 93.6 (78.0-102.0) fL MCH 29.5 (27.0-31.0) pg MCHC 31.5 L (32-36) g/dL RDW 13.5 (11.6-14.4) % Plt Count 334 (150-420) K/mm3 MPV 9.9 (9.2-11.8) fl Immature Gran % (Auto) Not Reportable Neut % (Auto) Not Reportable Lymph % (Auto) Not Reportable [place] % (Auto) Not Reportable Eos % (Auto) Not Reportable Baso % (Auto) Not Reportable Lymph # (Auto) Not Reportable [place] # (Auto) Not Reportable Eos # (Auto) Not Reportable Baso # (Auto) Not Reportable Abs Immat Gran (auto) Not Reportable Absolute Neuts (auto) Not Reportable Absolute Nucleated RBC Not Reportable Total Counted 100 Neutrophils % (Manual) 90 H (46-73) % Band Neutrophils % 1 (0-6) % Lymphocytes % (Manual) 5 L (18-44) % Monocytes % (Manual) 3 (3-9) % Eosinophils % (Manual) 1 (1-6) % Nucleated RBC % Not Reportable Abs Neuts (Manual) 21.38 H (1.7-7.2) K/mm3 Abs Lymphs (Manual) 1.17 (1.1-4.5) K/mm3 Abs Monocytes (Manual) 0.70 (0.1-0.90) K/mm3 Absolute Eos (Manual) 0.23 (0.02-0.50) K/mm3 Platelet Estimate Adequate (Adequate) Schistocytes Not Reportable PT 12.3 H (9.50-12.1) Seconds INR 1.1 APTT 27.3 (23.9-30.70) Sec D-Dimer 0.82 H* (0.19-0.50) mg/L Sodium 133 L (137-145) mmol/L Potassium 3.9 (3.4-5.0) mmol/L Chloride 101 (98-107) mmol/L Carbon Dioxide 24 (22-30) mmol/L Anion Gap 8 (4-12) mmol/L BUN 9 (7-17) mg/dL Creatinine 0.84 (0.7-1.0) mg/dL Estim Creat Clear Calc 69 ml/min Estimated GFR > 60 (59 - ) Glucose 125 H (65-110) mg/dL Calculated Osmolality 275 L (285-295) mOsm/kg Lactic Acid 2.9 H (0.4-2.0) mmol/L Calcium 8.2 L (8.4-10.2) mg/dL Magnesium 2.2 (1.6-2.3) mg/dL Total Bilirubin 0.9 (0.2-1.3) mg/dL AST 29 (14-36) U/L ALT 24 (6-35) U/L Alkaline Phosphatase 89 (38-126) U/L Troponin I < 0.012 (0.000-0.034) ng/mL NT-Pro-B Natriuret Pep 71 (19.9-100) pg/mL Total Protein 7.4 (6.3-8.2) g/dL Albumin 3.5 (3.5-5.1) g/dL Urine Color Brown A (Yellow) Urine Appearance Clear (Clear) Urine pH 6.0 (5.0-8.0) Ur Specific [place] >= 1.030 H (1.010-1.020) Urine Protein Trace H (Negative) Urine Glucose (UA) Negative (Negative) Urine Ketones 1+ H (Negative) Ur Blood (Man) Trace-intact H (Negative) Urine Nitrate Negative (Negative) Urine Bilirubin 1+ H (Negative) Urine Urobilinogen 2.0 H (0.2-1.0) mg/dL Leukocyte Esterase Rfl 2+ H (Negative) VANESSA/UL Urine RBC 0-2 (0-2) /hpf Urine WBC 51-75 H (0-3) /hpf Ur Squamous Epith Cells Moderate H (Few) /hpf Urine Bacteria 4+ (None) /hpf Hyaline Casts 0-2 (None) /lpf ABG Data ABG results: 08/13/24 13:35 Puncture Site Right radial ABG pH 7.50 H ABG pCO2 25.8 L ABG pO2 60.1 L ABG HCO3 19.4 L ABG O2 Saturation 91.9 L ABG Base Excess -2.0 L Oxyhemoglobin 90.7 L O2 Delivery Device Nasal cannula O2 Liters/Min 4.5 Critical Care Time Critical Care Time Critical Care Time: No Discharge Plan Discharge Clinical Impression: Acute hypoxemic respiratory failure Pneumonia Qualifiers: Pneumonia type: due to unspecified organism Patient Disposition: [facility] Condition: Guarded Prognosis Time of Disposition: 15:34
[2024-08-13 15:44] LABS: Reflex Lactic Acid Yes or No Add Lactic
[2024-08-13] MEDS: AZITHROMYCIN 500 MG/NS 250 ML 500 MG/250 ML BAG 250 MG IVPB (16:07)
[2024-08-13 16:10] LABS: Lactic Acid 2.1 mmol/L (0.7-2.0)
[2024-08-13 17:11] LABS: SARS-CoV-2 RNA PCR Negative (Negative)
[2024-08-13 17:12] LABS: Influenza A QL RT-PCR Negative (Negative); Influenza B QL RT-PCR Negative (Negative); RSV RNA, RT-PCR Negative (Negative)
--- NOTE | 2024-08-13 17:48 | PC.NURSE ---
Patient arrived to unit in w/c from ED. Patient able to independently transfer from w/c to bed. Patient educated on fall precautions, use of call light and bed controls, visiting hours and general hospital policies. Patient stated that her son is healthcare POA and said they would bring paperwork at another time. Patient given folder with hospital information. Patient and family voiced understanding of education.
[2024-08-13] MEDS: methylPREDNISolone SOD SUCC 125 MG VIAL 60 MG IV PUSH (18:35)
[2024-08-13 20:56] LABS: MRSA (PCR) NOT DETECTED (NOT DETECTE)
[2024-08-14] VITALS (16 sets, daily range): BP systolic 114–125; BP diastolic 59–69; PULSE 75–98; RESP 16–20; TEMP 35.7–36.6; O2SAT 91–98
[2024-08-14] MEDS: IPRATROPIUM 0.5 MG/ALBUTEROL SULFATE 2.5 MG AMPUL.NEB 3 ML INHALATION ×4 (00:12→17:08)
[2024-08-14 07:07] LABS: Basophils Absolute Auto 0.03 K/mm3 (0.00-0.10); Basophils Percent Auto 0.2 % (0.0-1.0); Hematocrit 42.5 % (35.0-49.0); Hemoglobin 13.4 g/dL (12.0-15.0); Immature Granulocyte Absolute 0.27 K/mm3 (0.00-0.00); Immature Granulocyte Percent A 1.7 % (0.0-0.0); Lymphocytes Absolute Auto 0.95 K/mm3 (1.10-4.50); Lymphocytes Percent Auto 5.9 % (18.0-42.0); Mean Corpuscular HGB Conc 31.5 g/dL (32-36); Mean Corpuscular Hemoglobin 29.5 pg (27.0-31.0); Mean Corpuscular Volume 93.4 fL (78.0-102.0); Mean Platelet Volume 9.8 fl (9.2-11.8); Monocytes Absolute Auto 0.36 K/mm3 (0.10-0.90); Monocytes Percent Auto 2.3 % (2.0-11.0); Neutrophils Absolute Auto 14.39 K/mm3 (1.70-7.20); Neutrophils Percent Auto 89.9 % (50.0-70.0); Platelet Count Result 324 K/mm3 (150-420); Red Blood Count 4.55 M/mm3 (4.20-5.40); Red Cell Distribution Width 13.8 % (11.6-14.4)
[2024-08-14 07:24] LABS: Hemoglobin A1C 6.2 % (<5.7)
[2024-08-14 07:35] LABS: Alanine Aminotransferase 25 U/L (6-35); Albumin Level 3.2 g/dL (3.5-5.1); Alkaline Phosphatase 87 U/L (38-126); Anion Gap 8 mmol/L (4-12); Aspartate Amino Transferase 21 U/L (14-36); Bilirubin,Total 0.5 mg/dL (0.2-1.3); Blood Urea Nitrogen 10 mg/dL (7-17); Calcium 8.6 mg/dL (8.4-10.2); Carbon Dioxide 22 mmol/L (22-30); Chloride 108 mmol/L (98-107); Estimated CRCL calculation 70 ml/min; Estimated Glomerular Filt Rate > 60; Glucose 214 mg/dL (65-110); Magnesium 2.7 mg/dL (1.6-2.3); Osmolality Calculated 291 mOsm/kg (285-295); Potassium 3.6 mmol/L (3.4-5.0); Sodium 138 mmol/L (137-145); Total Protein 6.7 g/dL (6.3-8.2)
[2024-08-14] MEDS: PANTOPRAZOLE 40 MG TABLET PO (09:11)
[2024-08-14] MEDS: ENOXAPARIN 40 MG/0.4 ML SYRINGE SUB-Q (09:11)
[2024-08-14] MEDS: ASPIRIN 81 MG ENTERIC TABLET PO (09:11)
[2024-08-14] MEDS: METOPROLOL TARTRATE 50 MG TAB PO (09:11)
[2024-08-14] MEDS: AZITHROMYCIN 250 MG TABLET 500 MG PO (09:11)
--- NOTE | 2024-08-14 11:00 | P.HP_ITS ---
H&P: HPI History of Present Illness Date/Time: 08/14/24 11:00 Chief Complaint: SOB Narrative: patient is a 59-year-old female who presented to the emergency department with complaints of worsening shortness a breath and congestion. Per patient symptoms actually began about 3 weeks prior which she thought she had just had a URI however they continued to worsen and prior to arrival to the emergency room she was extremely short of breath. Patient states she has had intermittent fever and chills denies any chest pain, nausea, vomiting or abdominal pain. patient attempted to take OTC medication with no relief. patient reports she does have a past medical history of asthma, hypertension, and NE with stent. initial findings in the emergency department patient was found to have acute respiratory failure with hypoxia was requiring 5 L nasal cannula of supplemental oxygen to maintain 92% CTA was completed which showed no pulmonary embolism but bilateral infiltrates suggestive of pneumonia, leukocytes at 23 and a lactic of 2.3, ABG showing respiratory alkalosis she was compensating. patient was admitted to the medical unit for further evaluation and treatment. Review of Systems Review of Systems: All systems reviewed & are unremarkable except as noted in HPI and below PMFSH Past Medical History Medical History NE (myocardial infarction) Asthma Hypertension Social History Social History Smoking status: Never smoker Second hand tobacco smoke exposure: No Alcohol intake: never Substance use: never Do You Feel Safe in your Home?: Yes Lack of Transportation: No Lack of Food: Never True Current Housing: I Have Housing Concerned About Future Housing: No Difficulty Paying Gas/Electric Bills: No Difficulty Paying for Meds: No Currently Unemployed: No Education: High School Diploma/GED Difficulty w/ Childcare or Family Care: No Gender identity (if verbalized by the patient): Female Spiritual care concerns: No Meds Home Medications and Allergies Home Medications Medication Instructions Recorded Confirmed Type albuterol sulfate 90 mcg/actuation 2 puff inhalation Q4-6H PRN 05/23/19 08/13/24 History aerosol inhaler Shortness Of Breath aspirin 81 mg tablet,delayed 81 mg PO DAILY 05/23/19 08/13/24 History release (Kory Low Dose Aspirin) fluticasone 113 mcg-salmeterol 14 1 puff inhalation DAILY 05/23/19 08/13/24 History mcg/actuation breath activated powdr metoprolol tartrate 50 mg tablet 50 mg PO DAILY 05/23/19 08/13/24 History omeprazole 20 mg capsule,delayed 20 mg PO DAILY 08/13/24 08/13/24 History release Allergies Allergy/AdvReac Type Severity Reaction Status Date / Time amoxicillin (From Augmentin) Allergy Rash Verified 08/13/24 14:22 ciprofloxacin Allergy Rash Verified 08/13/24 14:22 clavulanic acid (From Allergy Rash Verified 08/13/24 14:22 Augmentin) hydrocodone (From Vicodin) Allergy Rash Verified 08/13/24 14:22 morphine Allergy Rash Verified 08/13/24 14:22 Penicillins Allergy Rash Verified 08/13/24 14:22 propoxyphene (From Allergy Rash Verified 08/13/24 14:22 Darvocet-N 100) Vital Signs Vital Signs - 24 hr 08/13/24 13:25 08/13/24 13:30 08/13/24 13:43 Temperature 99.4 F Pulse Rate 114 H Respiratory Rate 25 H 28 H Blood Pressure 125/72 Pulse Oximetry 91 83 L 89 L Oxygen Delivery Nasal Cannula Room Air Oxygen Flow Rate 5 08/13/24 13:45 08/13/24 13:46 08/13/24 13:50 Temperature Pulse Rate 116 H 117 H 114 H Respiratory Rate 31 H 23 H 24 H Blood Pressure 122/52 L Pulse Oximetry 88 L 91 93 Oxygen Delivery Nasal Cannula Oxygen Flow Rate 5 08/13/24 14:00 08/13/24 14:00 08/13/24 14:01 Temperature Pulse Rate 110 H 116 H 116 H Respiratory Rate 24 H 27 H 33 H Blood Pressure 122/50 L Pulse Oximetry 96 97 97 Oxygen Delivery Nasal Cannula Oxygen Flow Rate 5 08/13/24 14:11 08/13/24 14:15 08/13/24 14:16 Temperature Pulse Rate 114 H 115 H 116 H Respiratory Rate 20 28 H Blood Pressure 107/54 L Pulse Oximetry 91 92 Oxygen Delivery Nasal Cannula Oxygen Flow Rate 5 08/13/24 14:48 08/13/24 14:49 08/13/24 15:00 Temperature Pulse Rate 119 H 115 H 112 H Respiratory Rate 29 H 24 H 22 H Blood Pressure 123/57 L 122/60 Pulse Oximetry 87 L 91 92 Oxygen Delivery Nasal Cannula Nasal Cannula Oxygen Flow Rate 5 5 08/13/24 15:01 08/13/24 15:15 08/13/24 15:16 Temperature Pulse Rate 113 H 114 H 112 H Respiratory Rate 21 H 28 H 28 H Blood Pressure 120/69 Pulse Oximetry 93 91 90 Oxygen Delivery Nasal Cannula Oxygen Flow Rate 5 08/13/24 15:30 08/13/24 15:31 08/13/24 15:45 Temperature Pulse Rate 109 H 108 H 108 H Respiratory Rate 29 H 29 H 33 H Blood Pressure 118/60 118/57 L Pulse Oximetry 90 90 91 Oxygen Delivery Nasal Cannula Nasal Cannula Oxygen Flow Rate 5 5 08/13/24 15:46 08/13/24 16:00 08/13/24 16:00 Temperature Pulse Rate 106 H 103 H Respiratory Rate 34 H 25 H Blood Pressure 114/62 Pulse Oximetry 91 92 90 Oxygen Delivery Nasal Cannula Oxygen Flow Rate 5 5 08/13/24 16:01 08/13/24 16:15 08/13/24 16:16 Temperature Pulse Rate 102 H 101 H 102 H Respiratory Rate 28 H 25 H 34 H Blood Pressure 110/64 Pulse Oximetry 92 90 90 Oxygen Delivery Nasal Cannula Oxygen Flow Rate 5 08/13/24 17:39 08/13/24 18:13 08/13/24 18:48 Temperature 96.9 F L Pulse Rate 107 H 107 H 101 H Respiratory Rate 20 20 20 Blood Pressure 113/50 L Pulse Oximetry 92 93 92 Oxygen Delivery Nasal Cannula Nasal Cannula Oxygen Flow Rate 5 5 5 08/13/24 19:23 08/13/24 20:00 08/13/24 20:00 Temperature Pulse Rate 111 H 101 H 101 H Respiratory Rate 18 18 Blood Pressure Pulse Oximetry 94 93 Oxygen Delivery Nasal Cannula Oxygen Flow Rate 5 5 08/14/24 00:00 08/14/24 00:00 08/14/24 00:10 Temperature 97.9 F Pulse Rate 78 91 91 Respiratory Rate 18 18 Blood Pressure 125/69 Pulse Oximetry 91 93 Oxygen Delivery Nasal Cannula Oxygen Flow Rate 5 5 08/14/24 00:20 08/14/24 04:00 08/14/24 05:32 Temperature Pulse Rate 88 90 75 Respiratory Rate 18 16 Blood Pressure Pulse Oximetry 93 93 Oxygen Delivery Oxygen Flow Rate 5 5 08/14/24 05:44 08/14/24 09:11 Temperature Pulse Rate 76 98 Respiratory Rate 20 Blood Pressure Pulse Oximetry 95 Oxygen Delivery Oxygen Flow Rate 5 Exam Const: General: comfortable and no acute distress Other: Pleasant female up in chair HENMT: Face/Nose/Sinus: Normal nares present Mouth: Yes moist mucous membranes Eyes: General: appearance normal, both eyes and all related structures Sclera: sclerae normal Pupils: Equal, round and reactive pupils present Neck: Neck: supple and no JVD Resp: Auscultation: wheezes throughout Other: tachypnea Cardio: Rate: regular rate Rhythm: regular rhythm GI: GI Palp: Yes Soft to palpation Auscultation: normal bowel sounds Skin: General skin exam: normal color and no rashes or lesions noted Wounds: no wounds Neuro: General: gait normal Speech: normal speech Motor exam (neuro): 5/5 motor strength present throughout Sensory Exam: normal sensation Extrem: General: normal to inspection Psych: Mental Status: mental status grossly normal Affect: normal affect H&P: Results Labs Labs: Short CBC 08/13/24 08/14/24 Range/Units 13:35 06:41 WBC 23.5 H* 16.0 H (4.8-10.8) K/mm3 Hgb 14.8 13.4 (12.0-15.0) g/dL Hct 47.0 42.5 (35.0-49.0) % Plt Count 334 324 (150-420) K/mm3 BMP 08/13/24 08/14/24 13:35 06:41 Sodium 133 L 138 Potassium 3.9 3.6 Chloride 101 108 H Carbon Dioxide 24 22 BUN 9 10 Creatinine 0.84 0.85 Glucose 125 H 214 H Calcium 8.2 L 8.6 Cardiac Enzymes 08/13/24 Range/Units 13:35 Troponin I < 0.012 (0.000-0.034) ng/mL Liver Function 08/13/24 08/14/24 Range/Units 13:35 06:41 Total Bilirubin 0.9 0.5 (0.2-1.3) mg/dL AST 29 21 (14-36) U/L ALT 24 25 (6-35) U/L Alkaline Phosphatase 89 87 (38-126) U/L Albumin 3.5 3.2 L (3.5-5.1) g/dL Urine 08/13/24 Range/Units 13:25 Urine Color Brown A (Yellow) Urine Appearance Clear (Clear) Urine pH 6.0 (5.0-8.0) Ur Specific [place] >= 1.030 H (1.010-1.020) Urine Protein Trace H (Negative) Urine Glucose (UA) Negative (Negative) Assessment and Plan Assessment and plan (1) Sepsis without septic shock: Code(s): A41.9 - Sepsis, unspecified organism Status: Acute Assessment and Plan: patient meeting for sepsis secondary to pneumonia leukocytosis, lactic acidosis with known infection * azithromycin and IV Rocephin * Monitor lactic acid levels q6hr. 2.9/2.1 * Repeat CBC, CMP. * Two sets of blood cultures pending * urine cultures suspicious for UTI (2) Acute hypoxemic respiratory failure: Code(s): J96.01 - Acute respiratory failure with hypoxia Status: Acute Assessment and Plan: acute respiratory failure with hypoxia secondary to pneumonia and asthma exacerbation * IV Rocephin and oral azithromycin * treating with IV methylprednisone to patient's underlying asthma patient does report she is fine with methylprednisone but can take oral prednisone * josué white * currently on 5 L nasal cannula will wean as tolerated to maintain 92% if unable to wean she will need home oxygen walk study * patient refusing mucolytics makes her sick * incentive spirometer * encourage hydration (3) Pneumonia: Qualifiers: Pneumonia type: due to unspecified organism Code(s): J18.9 - Pneumonia, unspecified organism Status: Acute Assessment and Plan: SEE ABOVE (4) Asthma: Code(s): J45.909 - Unspecified asthma, uncomplicated Status: Acute Assessment and Plan: * duo nebs * methylprednisone IV * wean oxygen as tolerated (5) Hypertension: Code(s): I10 - Essential (primary) hypertension Status: Acute Assessment and Plan: * resume metoprolol * BP per unit protocol Plan Code status: Full code per patient DVT prophylaxis: Lovenox Stress ulcer prophylaxis: Protonix 40 daily PT/OT notes: Ambulatory Disposition: patient continues admission to the medical unit for further treatment of acute respiratory failure with hypoxia secondary to pneumonia will continue with current treatment plan patient is ambulatory on own if unable to wean from oxygen may need home to oxygen walk study prior to discharge plan is to discharge back to home when medically stable Quality VTE Prophylaxis VTE prophylaxis: pharmacologic ordered -Patient's previous records reviewed on admission -ER notes reviewed in detail on admission -discussed all findings and current treatment plan with patient/Family/POA -Consultations reviewed for recommendations -Patient's disposition for safe discharge discussed with senior case manager Dictation performed by [employer] direct speech recognition software, there fore nurse healthcare manager variants and typographical errors may occur. Hospitalist [facility] Advance Care Plan I have confirmed that the patient's Advanced Care Plan is present, code status is documented, or surrogate decision maker is listed in patient medical record.: Yes Medication Reconciliation I have utilized all available resources to obtain, update and review the patients current medications (includes all prescriptions, OTC, herbals, cannabis, and nutritional supplements).: Yes The patient is not eligible for med reconciliation; the patient is in a emergent medical situation where delaying treatment would jeopardize the patients health.: No
[2024-08-14] MEDS: methylPREDNISolone SOD SUCC 125 MG VIAL 60 MG IV PUSH ×2 (13:14→20:57)
[2024-08-15] VITALS (8 sets, daily range): BP systolic 109–118; BP diastolic 66–68; PULSE 71–102; RESP 14–18; TEMP 36.6; O2SAT 94–96
[2024-08-15] MEDS: IPRATROPIUM 0.5 MG/ALBUTEROL SULFATE 2.5 MG AMPUL.NEB 3 ML INHALATION ×3 (00:40→18:27)
[2024-08-15 07:00] LABS: Hematocrit 44.4 % (35.0-49.0); Hemoglobin 13.9 g/dL (12.0-15.0); Mean Corpuscular HGB Conc 31.3 g/dL (32-36); Mean Corpuscular Hemoglobin 29.6 pg (27.0-31.0); Mean Corpuscular Volume 94.7 fL (78.0-102.0); Mean Platelet Volume 9.7 fl (9.2-11.8); Platelet Count Result 381 K/mm3 (150-420); Red Blood Count 4.69 M/mm3 (4.20-5.40); Red Cell Distribution Width 14.2 % (11.6-14.4)
[2024-08-15 07:14] LABS: Alanine Aminotransferase 29 U/L (6-35); Albumin Level 3.1 g/dL (3.5-5.1); Alkaline Phosphatase 82 U/L (38-126); Anion Gap 7 mmol/L (4-12); Aspartate Amino Transferase 20 U/L (14-36); Bilirubin,Total 0.4 mg/dL (0.2-1.3); Blood Urea Nitrogen 14 mg/dL (7-17); Calcium 8.8 mg/dL (8.4-10.2); Carbon Dioxide 24 mmol/L (22-30); Chloride 109 mmol/L (98-107); Estimated CRCL calculation 67 ml/min; Estimated Glomerular Filt Rate > 60; Glucose 178 mg/dL (65-110); Osmolality Calculated 294 mOsm/kg (285-295); Potassium 4.4 mmol/L (3.4-5.0); Sodium 140 mmol/L (137-145); Total Protein 6.2 g/dL (6.3-8.2)
[2024-08-15 07:21] LABS: White Blood Count 23.5 K/mm3 (4.8-10.8)
[2024-08-15 07:25] LABS: Neutrophils Percent Manual 90 % (46-73); Total Cells Counted 100
[2024-08-15 07:26] LABS: Lymphocytes Absolute Manual 1.17 K/mm3 (1.1-4.5); Lymphocytes Percent Manual 5 % (18-44); Monocytes Absolute Manual 1.17 K/mm3 (0.1-0.90); Monocytes Percent Manual 5 % (3-9); Platelet Estimate Adequate (Adequate)
[2024-08-15] MEDS: ENOXAPARIN 40 MG/0.4 ML SYRINGE SUB-Q (09:29)
[2024-08-15] MEDS: METOPROLOL TARTRATE 50 MG TAB PO (09:29)
[2024-08-15] MEDS: ASPIRIN 81 MG ENTERIC TABLET PO (09:29)
[2024-08-15] MEDS: PANTOPRAZOLE 40 MG TABLET PO (09:29)
[2024-08-15] MEDS: AZITHROMYCIN 250 MG TABLET 500 MG PO (09:30)
--- NOTE | 2024-08-15 11:18 | P.PNIM_ITS ---
Progress Note: A&P Assessment and Plan (1) Sepsis without septic shock: Code(s): A41.9 - Sepsis, unspecified organism Status: Acute Assessment and Plan: patient meeting for sepsis secondary to pneumonia leukocytosis, lactic acidosis with known infection * azithromycin and IV Rocephin * Monitor lactic acid levels q6hr. 2.9/2.1 * Repeat CBC, CMP. * Two sets of blood cultures pending * urine cultures suspicious for UTI * IVF started (2) Acute hypoxemic respiratory failure: Code(s): J96.01 - Acute respiratory failure with hypoxia Status: Acute Assessment and Plan: acute respiratory failure with hypoxia secondary to pneumonia and asthma exacer milagros * IV Rocephin and oral azithromycin * treating with IV methylprednisone to patient's underlying asthma patient does report she is fine with methylprednisone but can take oral prednisone * josué white * currently on 3 L nasal cannula will wean as tolerated to maintain 92% if unable to wean she will need home oxygen walk study * patient refusing mucolytics makes her sick * incentive spirometer * encourage hydration (3) Pneumonia: Qualifiers: Pneumonia type: due to unspecified organism Code(s): J18.9 - Pneumonia, unspecified organism Status: Acute Assessment and Plan: SEE ABOVE (4) Asthma: Code(s): J45.909 - Unspecified asthma, uncomplicated Status: Acute Assessment and Plan: * duo nebs * methylprednisone IV changed to BID * wean oxygen as tolerated (5) Hypertension: Code(s): I10 - Essential (primary) hypertension Status: Acute Assessment and Plan: * resume metoprolol * BP per unit protocol Plan Code status: Full code per patient DVT prophylaxis: Lovenox Stress ulcer prophylaxis: Protonix 40 daily PT/OT notes: Ambulatory Disposition: patient continues admission to the medical unit for further treatment of acute respiratory failure with hypoxia secondary to pneumonia will continue with current treatment plan patient is ambulatory on own if unable to wean from oxygen may need home to oxygen walk study prior to discharge plan is to discharge back to home when medically stable Subjective Date/time seen: 08/15/24 11:18 Interval history: Discussed with patient about her health and she states she is feeling fine . Patient is wanting to go home. at this we will be starting fluids and evaluation of Sepsis and diuresising her. Exam Const: General: well developed, alert, awake, anxious, ill appearing and well nourished HENMT: Head: normal to inspection Mouth: Yes Normal oral and palatal mucosa present and Yes lip normal Eyes: General: appearance normal, both eyes and all related structures Chest: Chest palpation & inspection: normal inspection of the chest and normal palpation of entire chest wall Resp: Effort & Inspection: normal respiratory effort, able to speak in complet e sentences and abnormal respiratory pattern Auscultation: wheezes and diminished lung sounds Cardio: Jugular venous distension: no JVD GI: Inspection: normal to inspection Back/Spine/Pelvis: Back: no CVA tenderness Skin: General skin exam: normal color Extrem: General: normal to inspection and full ROM Psych: Appearance: well kempt Affect: normal affect Objective Data Vital Signs Vital Signs: Vital Signs - 24 hr 08/14/24 12:00 08/14/24 12:40 08/14/24 12:51 Temperature Pulse Rate 80 78 80 Respiratory Rate 20 20 Blood Pressure Pulse Oximetry 95 98 Oxygen Delivery Oxygen Flow Rate 5 08/14/24 16:00 08/14/24 16:00 08/14/24 17:03 Temperature 97 F L Pulse Rate 76 90 75 Respiratory Rate 18 20 Blood Pressure 114/59 L Pulse Oximetry 93 93 Oxygen Delivery Nasal Cannula Oxygen Flow Rate 5 08/14/24 17:10 08/14/24 20:00 08/14/24 20:00 Temperature Pulse Rate 78 91 91 Respiratory Rate 20 18 Blood Pressure Pulse Oximetry 98 96 Oxygen Delivery Oxygen Flow Rate 08/15/24 00:00 08/15/24 00:00 08/15/24 00:40 Temperature 97.8 F Pulse Rate 83 91 97 Respiratory Rate 18 18 Blood Pressure 109/66 Pulse Oximetry 96 96 Oxygen Delivery Nasal Cannula Oxygen Flow Rate 5 5 08/15/24 04:00 08/15/24 09:29 Temperature Pulse Rate 75 102 H Respiratory Rate Blood Pressure Pulse Oximetry Oxygen Delivery Oxygen Flow Rate Intake/Output Intake/Output: Intake & Output 08/12/24 08/13/24 08/14/24 08/15/24 23:59 23:59 23:59 23:59 Intake Total 600 1350 300 Output Total 0 1500 Balance 600 -150 300 Meds/Results Medications: Active Medications Generic Name Dose Route Start Last Admin Trade Name Freq PRN Reason Stop Dose Admin Acetaminophen 650 mg 08/13/24 18:10 Acetaminophen 325 Mg Tablet PO Q4H PRN Mild Pain (1-3) or Fever Albuterol/Ipratropium 3 ml 08/13/24 18:30 08/15/24 06:00 Ipratropium 0.5 Mg/Albuterol Sulfate 2.5 Mg Ampul.Neb 3 Ml INHALATION 3 ml Q6HRT DENISA Administration Aspirin 81 mg 08/14/24 09:00 08/15/24 09:29 Aspirin 81 Mg Enteric Tablet PO 81 mg DAILY DENISA Administration Azithromycin 500 mg 08/14/24 09:00 08/15/24 09:30 Azithromycin 250 Mg Tablet PO 500 mg DAILY DENISA Administration Enoxaparin Sodium 40 mg 08/14/24 09:00 08/15/24 09:29 Enoxaparin 40 Mg/0.4 Ml Syringe SUB-Q 40 mg DAILY DENISA Administration Furosemide 20 mg 08/15/24 11:17 Furosemide Inj 40 Mg/4 Ml Vial IV PUSH 08/15/24 11:18 ONCE ONE Ceftriaxone Sodium 1 gm in 50 mls @ 100 mls/hr 08/13/24 20:00 08/14/24 21:29 Rocephin 1 Gm/Ns 50 Ml IVPB Infused Q24H DENISA Infusion Sodium Chloride 1,000 mls @ 100 mls/hr 08/15/24 11:20 Normal Saline Iv IV CONT .Q10H DENISA Methylprednisolone Sodium Succinate 60 mg 08/15/24 11:15 Methylprednisolone Sod Succ 125 Mg Vial IV PUSH Q12H DENISA Metoprolol Tartrate 50 mg 08/14/24 09:00 08/15/24 09:29 Metoprolol Tartrate 50 Mg Tab PO 50 mg DAILY DENISA Administration Ondansetron HCl 4 mg 08/13/24 18:10 Ondansetron Inj 4 Mg/2 Ml Vial IV PUSH Q6H PRN Nausea And Vomiting Pantoprazole Sodium 40 mg 08/14/24 09:00 08/15/24 09:29 Pantoprazole 40 Mg Tablet PO 40 mg QAM DENISA Administration Radiology Results: ITS Impressions Chest X-Ray 08/13/24 14:11 Impression: 1: Pulmonary edema. Chest CTA 08/13/24 14:58 IMPRESSION: 1. Diffuse groundglass opacification of both lungs with interlobular septal thickening, most likely pulmonary edema. Differential diagnosis includes pneumonia and hypersensitivity pneumonitis. 2: Study limited for evaluation of pulmonary embolism due to contrast bolus timing. No large central pulmonary embolism. Labs Labs: Laboratory Results - last 24 hr 08/15/24 06:51 WBC 23.5 H* RBC 4.69 Hgb 13.9 Hct 44.4 MCV 94.7 MCH 29.6 MCHC 31.3 L RDW 14.2 Plt Count 381 MPV 9.7 Immature Gran % (Auto) Not Reportable Neut % (Auto) Not Reportable Lymph % (Auto) Not Reportable [place] % (Auto) Not Reportable Eos % (Auto) Not Reportable Baso % (Auto) Not Reportable Lymph # (Auto) Not Reportable [place] # (Auto) Not Reportable Eos # (Auto) Not Reportable Baso # (Auto) Not Reportable Abs Immat Gran (auto) Not Reportable Absolute Neuts (auto) Not Reportable Absolute Nucleated RBC Not Reportable Total Counted 100 Neutrophils % (Manual) 90 H Band Neutrophils % Not Reportable Lymphocytes % (Manual) 5 L Monocytes % (Manual) 5 Nucleated RBC % Not Reportable Abs Lymphs (Manual) 1.17 Abs Monocytes (Manual) 1.17 H Platelet Estimate Adequate Schistocytes Not Reportable Sodium 140 Potassium 4.4 Chloride 109 H Carbon Dioxide 24 Anion Gap 7 BUN 14 Creatinine 0.89 Estim Creat Clear Calc 67 Estimated GFR > 60 Glucose 178 H Calculated Osmolality 294 Calcium 8.8 Total Bilirubin 0.4 AST 20 ALT 29 Alkaline Phosphatase 82 Total Protein 6.2 L Albumin 3.1 L
[2024-08-15 11:36] LABS: NT Pro B Type Natriuretic Pept 211 pg/mL (19.9-100)
[2024-08-15] MEDS: SODIUM CHLORIDE 0.9% IV 1,000 ML 100 ML IV CONT ×2 (11:42→21:43)
[2024-08-15] MEDS: FUROSEMIDE INJ 40 MG/4 ML VIAL 20 MG IV PUSH (11:43)
[2024-08-15 11:44] LABS: Lactic Acid Reflex 2.5 mmol/L (0.4-2.0)
[2024-08-15 13:30] LABS: Reflex Lactic Acid Yes or No Add Lactic
[2024-08-15 14:00] LABS: Lactic Acid 3.1 mmol/L (0.7-2.0)
[2024-08-15] MEDS: ACETAMINOPHEN 325 MG TABLET 650 MG PO (19:48)
--- NOTE | 2024-08-15 20:13 | PC.NURSE ---
Patient refused Solumedrol for second time. Francisco Kimball NP notified per James Michaud RN, Charge Nurse with new order received to [facility].
--- NOTE | 2024-08-15 20:40 | PC.NURSE ---
Patient's SpO2 is @ 95% on O2 @ 2 lpm/nc. Lungs clear. Denies SOB. O2 turned down to 1 lpm/nc @ this time.
[2024-08-16] VITALS (7 sets, daily range): BP systolic 104–122; BP diastolic 56–66; PULSE 66–96; RESP 14–18; TEMP 36.2–36.7; O2SAT 94–96
--- NOTE | 2024-08-16 00:35 | PC.NURSE ---
Patient's SpO2 is 96% on O2 @ 1 lpm/nc. O2 turned off @ this time. Patient doing Duoneb.
[2024-08-16] MEDS: IPRATROPIUM 0.5 MG/ALBUTEROL SULFATE 2.5 MG AMPUL.NEB 3 ML INHALATION ×2 (00:36→06:05)
--- NOTE | 2024-08-16 02:49 | PC.NURSE ---
Patient continues on room air with SpO2 @ 93%. Denies SOB.
[2024-08-16 08:22] LABS: Basophils Absolute Auto 0.02 K/mm3 (0.00-0.10); Basophils Percent Auto 0.2 % (0.0-1.0); Eosinophils Absolute Auto 0.16 K/mm3 (0.02-0.50); Eosinophils Percent Auto 1.8 % (1.0-6.0); Hematocrit 41.6 % (35.0-49.0); Immature Granulocyte Absolute 0.07 K/mm3 (0.00-0.00); Immature Granulocyte Percent A 0.8 % (0.0-0.0); Lymphocytes Absolute Auto 1.64 K/mm3 (1.10-4.50); Lymphocytes Percent Auto 18.1 % (18.0-42.0); Mean Corpuscular HGB Conc 31.3 g/dL (32-36); Mean Corpuscular Hemoglobin 29.6 pg (27.0-31.0); Mean Corpuscular Volume 94.8 fL (78.0-102.0); Mean Platelet Volume 9.4 fl (9.2-11.8); Monocytes Absolute Auto 0.62 K/mm3 (0.10-0.90); Monocytes Percent Auto 6.8 % (2.0-11.0); Neutrophils Absolute Auto 6.55 K/mm3 (1.70-7.20); Neutrophils Percent Auto 72.3 % (50.0-70.0); Platelet Count Result 303 K/mm3 (150-420); Red Blood Count 4.39 M/mm3 (4.20-5.40); Red Cell Distribution Width 14.1 % (11.6-14.4); White Blood Count 9.1 K/mm3 (4.8-10.8)
[2024-08-16 09:07] LABS: Lactic Acid Reflex 1.9 mmol/L (0.4-2.0)
[2024-08-16] MEDS: AZITHROMYCIN 250 MG TABLET 500 MG PO (09:17)
[2024-08-16] MEDS: ENOXAPARIN 40 MG/0.4 ML SYRINGE SUB-Q (09:17)
[2024-08-16 09:18] LABS: Alanine Aminotransferase 30 U/L (14-59); Albumin Level 2.4 g/dL (3.4-5.0); Alkaline Phosphatase 57 U/L (46-116); Anion Gap 10 mmol/L (4-12); Aspartate Amino Transferase 20 U/L (15-37); Bilirubin,Total 0.2 mg/dL (0.00-1.00); Blood Urea Nitrogen 12 mg/dL (7-18); Calcium 8.4 mg/dL (8.5-10.1); Carbon Dioxide 26 mmol/L (21-32); Chloride 106 mmol/L (98-108); Estimated CRCL calculation 56 ml/min; Estimated Glomerular Filt Rate 53; Glucose 127 mg/dL (70-99); Osmolality Calculated 295 mOsm/kg (285-295); Potassium 3.5 mmol/L (3.5-5.1); Sodium 142 mmol/L (136-145); Total Protein 5.5 g/dL (6.4-8.2)
[2024-08-16] MEDS: ASPIRIN 81 MG ENTERIC TABLET PO (09:18)
[2024-08-16] MEDS: METOPROLOL TARTRATE 50 MG TAB PO (09:18)
[2024-08-16] MEDS: PANTOPRAZOLE 40 MG TABLET PO (09:19)
--- NOTE | 2024-08-16 09:32 | P.DS_ITS ---
DS: Admitting Diagnosis Discharge Date 08/16/2024 Admitting Diagnosis Hypoxia, Sepsis, Pneumonia DS: Discharge Diagnosis Discharge Diagnosis (1) Sepsis without septic shock: Code(s): A41.9 - Sepsis, unspecified organism Status: Acute Assessment and Plan: resolved (2) Acute hypoxemic respiratory failure: Code(s): J96.01 - Acute respiratory failure with hypoxia Status: Acute Assessment and Plan: resolved (3) Pneumonia: Qualifiers: Pneumonia type: due to unspecified organism Code(s): J18.9 - Pneumonia, unspecified organism Status: Acute Assessment and Plan: Zithromax (4) Hypertension: Code(s): I10 - Essential (primary) hypertension Status: Acute Assessment and Plan: continue home medication DS: Summary Hospital Course Reason for hospitalization: Respiratory Failure, Pneumonia, Sepsis Hospital Course: This is a 59 year old female that was admitted for Respiratory failure, Pneumonia Sepsis. Patient was treated with supplemental oxygen, IV fluids, IV antibioitics, Breathing treatments and IV steroids in which patient ultimately started to refuse as she was complaining that it made her to jittery. Patient has continued to improve and deneis any shortness of breath and she states she is feeling a lot better. Patient labs have improved greatly with WBC currently 9.1 and she is afebrile. Patient is eating and drinking without difficulties and she has been off of oxygen since midnight. Patient anxiously wanting to go home as today is her birthday. At this time she is safe for discharge but instruction given to recognize worsening condition and when to return not to wait to long Pt acknowledges understanding at this time . Time Spent with Patient Time attestation: Total time spent providing and/or coordinating discharge services: Exam Const: General: comfortable, no acute distress, well developed, alert, awake, anxious, ill appearing, well nourished and obese Nutritional Appearance: well nourished and obese Orientation/consciousness: patient oriented x3 Other: Pleasant female up in chair HENMT: Head: normal to inspection Face/Nose/Sinus: Normal nares present Mouth: Yes Normal oral and palatal mucosa present, Yes lip normal and Yes moist mucous membranes Eyes: General: appearance normal, both eyes and all related structures Pupils: Equal, round and reactive pupils present Neck: Neck: no JVD Chest: Chest palpation & inspection: normal inspection of the chest and normal palpation of entire chest wall Resp: Effort & Inspection: normal respiratory effort, able to speak in complete sentences and abnormal respiratory pattern Auscultation: diminished lung sounds Other: tachypnea Cardio: Jugular venous distension: no JVD Rhythm: regular rhythm GI: Inspection: normal to inspection Urinary Catheter: Urinary Catheter: patent and draining Skin: General skin exam: normal color and no rashes or lesions noted Rashes: no rashes Wounds: no wounds Neuro: General: patient oriented x3, gait normal and moves all extremities Cranial nerves: Yes Equal, round and reactive pupils present Speech: normal speech Motor exam (neuro): 5/5 motor strength present throughout Sensory Exam: normal sensation Extrem: General: normal to inspection and full ROM Psych: Appearance: well kempt Mental Status: mental status grossly normal Affect: normal affect DS: Data Data Completed and Pending Labs on day of discharge: Labs from last 24 hours 08/16/24 08/16/24 08/15/24 08:46 08:11 13:44 WBC 9.1 RBC 4.39 Hgb 13.0 Hct 41.6 MCV 94.8 MCH 29.6 MCHC 31.3 L RDW 14.1 Plt Count 303 MPV 9.4 Immature Gran % (Auto) 0.8 H Neut % (Auto) 72.3 H Lymph % (Auto) 18.1 [place] % (Auto) 6.8 Eos % (Auto) 1.8 Baso % (Auto) 0.2 Lymph # (Auto) 1.64 [place] # (Auto) 0.62 Eos # (Auto) 0.16 Baso # (Auto) 0.02 Abs Immat Gran (auto) 0.07 H Absolute Neuts (auto) 6.55 Absolute Nucleated RBC 0.00 Nucleated RBC % 0.0 Sodium 142 Potassium 3.5 Chloride 106 Carbon Dioxide 26 Anion Gap 10 BUN 12 Creatinine 1.07 H Estim Creat Clear Calc 56 Estimated GFR 53 L Glucose 127 H Calculated Osmolality 295 Lactic Acid 1.9 3.1 H Calcium 8.4 L Total Bilirubin 0.2 AST 20 ALT 30 Alkaline Phosphatase 57 NT-Pro-B Natriuret Pep Total Protein 5.5 L Albumin 2.4 L 08/15/24 08/15/24 11:27 06:41 WBC RBC Hgb Hct MCV MCH MCHC RDW Plt Count MPV Immature Gran % (Auto) Neut % (Auto) Lymph % (Auto) [place] % (Auto) Eos % (Auto) Baso % (Auto) Lymph # (Auto) [place] # (Auto) Eos # (Auto) Baso # (Auto) Abs Immat Gran (auto) Absolute Neuts (auto) Absolute Nucleated RBC Nucleated RBC % Sodium Potassium Chloride Carbon Dioxide Anion Gap BUN Creatinine Estim Creat Clear Calc Estimated GFR Glucose Calculated Osmolality Lactic Acid 2.5 H Calcium Total Bilirubin AST ALT Alkaline Phosphatase NT-Pro-B Natriuret Pep 211 H Total Protein Albumin Preliminary micro results at discharge 08/13/24 13:35 Blood Culture - Preliminary Blood 08/13/24 13:35 Blood Culture - Preliminary Blood Discharge Plan Discharge Attending physician on discharge: Adia Brantley Consulting providers: Grace Betancourt Discharging Clinician: Desiree Kimball Anticipated Discharge Date/Time: 08/16/24 09:27 Patient Disposition: Home Activity: july shower and follow weight bearing status Diet: heart healthy Wound Care Instructions: follow printed instructions Patient Instructions: Antibiotic Form, Community Acquired Pneumonia (DC), How t o Use a Nebulizer (DC), Bacterial Pneumonia (DC), Hypoxia (GEN), Pneumonia (DC) Patient Language: Turkmen Stand Alone Forms: General Discharge Information Follow-up/Referrals: Ed,JESSIKA Rolon [Primary Care Provider] - (Follow up in 1 week) Discharge Medications: New ipratropium-albuterol 0.5 mg-3 mg(2.5 mg base)/3 mL solution for nebulization 3 ml inhalation Q6HRT Qty: 90 0RF azithromycin [Zithromax Z-Vince] 250 mg tablet See Rx Instructions .ROUTE .COMPLEX Qty: 6 0RF Rx Instructions: For 250 mg dose pack: take 500 mg today (day 1), then 250 mg for 4 days (days 2-5) Continued aspirin [Kory Low Dose Aspirin] 81 mg Tablet,Delayed Release (Dr/Ec) 81 mg PO DAILY metoprolol tartrate 50 mg tablet 50 mg PO DAILY albuterol sulfate 90 mcg/actuation HFA aerosol inhaler 2 puff INHALATION Q4-6H PRN (Reason: Shortness Of Breath) fluticasone propion-salmeterol 113-14 mcg/actuation aerosol powdr breath activated 1 puff INHALATION DAILY omeprazole 20 mg capsule,delayed release(DR/EC) 20 mg PO DAILY Date of admission: 08/14/24 13:02 Primary Care Provider: EdMike Admitting Provider: Adia Brantley Attending physician on admission: Adia Brantley Condition: Stable
--- NOTE | 2024-08-16 12:26 | PC.NURSE ---
Pt discharged to home and family care. Discharge instructions given to both pt and family member regarding medications, doseing times and amounts, possible SE, how often to take the med. Pt instructed to call snow removal supervisor for follow up appointment this week. Pt taken to family car via WC by CARLY
--- NOTE | 2024-08-17 10:31 | PC.NURSE ---
Discharge call back made. Left VM.
== END 2024-08-16 10:30 | disposition home or self-care (01) | DRG 720 ==
LOC: CHSED 15:34 → CHS2ND 16:02
PROVIDERS: Nurse Practitioner Family; Admitting Provider Internal Medicine; Emergency Provider Emergency Medicine; PCP Physician Assistant; Visit Provider Internal Medicine
DX: A41.9 Sepsis, unspecified organism (principal); J18.9 Pneumonia, unspecified organism; J96.01 Acute respiratory failure with hypoxia; J45.901 Unspecified asthma with (acute) exacerbation; I10 Essential (primary) hypertension; I25.2 Old myocardial infarction; Z95.5 Presence of coronary angioplasty implant and graft; Z79.82 Long term (current) use of aspirin; Z88.0 Allergy status to penicillin
CPT/HCPCS: 36415; 36600; 71045; 71275; 80053; 81001; 82805; 83036; 83605; 83735; 83880; 84484; 85025; 85380; 85610; 85730; 87040; 87086; 87637; 87641; 93005; 94640; 96365; 96367; 96375; 99285; A9270; G0378; G0379; J0456; J0696; J1650; J1938; J2919; J3475; J7030; Q9967

== ENCOUNTER 2024-08-17 13:22 | Inpatient (IN) | payer BC, SELFPAY ==
[2024-08-17] VITALS (49 sets, daily range): BP systolic 104–128; BP diastolic 46–84; PULSE 87–118; RESP 16–38; TEMP 36.6–36.8; O2SAT 89–99; BMI 29.7
--- NOTE | ~2024-08-17 | CT_ITS ---
EXAMINATION: CTA chest PE protocol DATE: 08/17/2024 16:50 INDICATION: Shortness of breath. TECHNIQUE: Computed tomography (CT) pulmonary angiogram of the chest was performed with 100 mL Omnipa que-350 intravenous contrast. Additional 3D reconstructions utilizing coronal maximum intensity proje ction (MIP) were performed. Automated exposure control and iterative reconstruction technique were em ployed. The dose-length product was 361.83 mGy-cm. COMPARISON: CT dated 08/13/2024 FINDINGS: Evaluation is significantly limited in the subsegmental pulmonary arteries due to combination of stre ak artifact, quantum mottle related to patient body habitus and small to moderate amount of motion ar tifact. No definitive pulmonary embolism identified. There is increased paving pattern throughout bot h lungs with combination of septal line thickening and mosaic attenuation with extensive groundglass opacities. No pleural effusion. Heart size is normal. No pericardial effusion. Thoracic aorta is norm al in caliber with no dissection. No pathologically enlarged thoracic lymphadenopathy. Cholecystectom y clips in the gallbladder fossa. Small sliding-type hiatal hernia. Visualized upper abdomen is other [place] unremarkable. Mild thoracic spondylosis with chronic mild anterior wedging of a few mid thoracic vertebral bodies. IMPRESSION: 1. No definitive pulmonary embolism with evaluation mildly limited in the segmental and more signific antly limited in the subsegmental pulmonary arteries due to comminution of streak and motion artifact and swallows quantum mottle related to patient body habitus. 2. Progression of diffuse crazy paving pattern throughout both lungs with differential including wors ening moderate pulmonary edema, pneumonia or hypersensitivity pneumonitis. 3. Small sliding-type hiatal hernia. Reviewed, dictated and finalized at location A. IMPRESSION: 1. No definitive pulmonary embolism with evaluation mildly limited in the segme ntal and more significantly limited in the subsegmental pulmonary arteries due to comminution of streak and motion artifact and swallows quantum mottle relate d to patient body habitus. 2. Progression of diffuse crazy paving pattern throughout both lungs with diffe rential including worsening moderate pulmonary edema, pneumonia or hypersensiti vity pneumonitis. 3. Small sliding-type hiatal hernia.
--- NOTE | ~2024-08-17 | XR_ITS ---
CHEST RADIOGRAPH CLINICAL HISTORY: SHORTNESS OF BREATH . COMPARISON: 08/13/2024 TECHNIQUE: Single portable view of the chest. FINDINGS The cardiomediastinal silhouette is unremarkable. Redemonstration of patchy opacification of the bilateral lung richards, with interstitial thickening, l argely unchanged from prior study. IMPRESSION: Interstitial thickening with patchy opacification of the bilateral lung richards, largely unchanged fro m prior study suggesting multifocal pneumonia. Reviewed, dictated and finalized at location A. IMPRESSION: Interstitial thickening with patchy opacification of the bilateral lung richards, largely unchanged from prior study suggesting multifocal pneumonia.
--- NOTE | 2024-08-17 13:25 | ED.GENADULT ---
HPI - General Adult General Chief complaint: Shortness of Breath/Dyspnea Stated complaint: SHORTNESS OF BREATH Time Seen by Provider: 08/17/24 13:25 Source: patient Mode of arrival: EMS Limitations: no limitations History of Present Illness HPI narrative: 59-year-old white female with history of pneumonia for the last 3 weeks was admitted to the hospital 4 days ago and discharged yesterday with pneumonia. Patient states she left the hospital against the doctor's advice they want her to stay longer. Based discharge her on azithromycin she became more short of breath today and called the ambulance who stated her O2 sat on room air was 83% she has had cold chills they started her on a nasal cannula and had put her on a non-rebreather at 8 L which brought her sat up to 93% denies any pain is increasing shortness of breath today. Related Data Home Medications ?Medication ?Instructions ?Recorded ?Confirmed ?Last Taken ?Type albuterol sulfate 90 mcg/actuation 2 puff inhalation Q4-6H PRN 05/23/19 08/17/24 Unknown History aerosol inhaler Shortness Of Breath aspirin 81 mg tablet,delayed 81 mg PO DAILY 05/23/19 08/17/24 08/17/24 09:00 History release (Kory Low Dose Aspirin) 81 mg fluticasone 113 mcg-salmeterol 14 1 puff inhalation DAILY 05/23/19 08/17/24 08/17/24 14:00 History mcg/actuation breath activated 1 puff powdr metoprolol tartrate 50 mg tablet 50 mg PO DAILY 05/23/19 08/17/24 08/17/24 09:00 History 50 mg omeprazole 20 mg capsule,delayed 20 mg PO DAILY 08/13/24 08/17/24 08/17/24 09:00 History release 20 mg Allergies Allergy/AdvReac Type Severity Reaction Status Date / Time amoxicillin (From Augmentin) Allergy Rash Verified 08/17/24 13:31 ciprofloxacin Allergy Rash Verified 08/17/24 13:31 clavulanic acid (From Allergy Rash Verified 08/17/24 13:31 Augmentin) hydrocodone (From Vicodin) Allergy Rash Verified 08/17/24 13:31 morphine Allergy Rash Verified 08/17/24 13:31 Penicillins Allergy Rash Verified 08/17/24 13:31 propoxyphene (From Allergy Rash Verified 08/17/24 13:31 Darvocet-N 100) Review of Systems Review of Systems: All systems reviewed & are unremarkable except as noted in HPI and below PMFSH Past Medical History Medical History OR (myocardial infarction) Asthma Hypertension Social History Social History Smoking status: Never smoker Second hand tobacco smoke exposure: No Alcohol intake: never Substance use: never Substance use type: does not use Do You Feel Safe in your Home?: Yes Lack of Transportation: No Lack of Food: Sometimes True Current Housing: I Have Housing Concerned About Future Housing: No Difficulty Paying Gas/Electric Bills: No Difficulty Paying for Meds: No Currently Unemployed: No Education: High School Diploma/GED Difficulty w/ Childcare or Family Care: No Gender identity (if verbalized by the patient): Female Spiritual care concerns: No Exam Narrative: White female patient with Moderate respiratory distress.? Head normocephalic, atraumatic.? Eyes conjunctiva pink sclera nonicteric.? Extraocular movements are intact.? Ears externally normal.? ?Oropharynx is clear with dry mucous membranes without exudates.? Neck is supple nontender no lymphadenopathy.? Back is nontender.? Lungs scattered rhonchi and wheezes. Heart is regular rate and rhythm without murmurs gallops or rubs.? Chest wall nontender. Abdomen is soft and nontender no hepatosplenomegaly or masses no CVA tenderness no abdominal bruits.? Extremities no cyanosis clubbing or edema.? Skin is warm and dry without rashes or lesions.? Neurological patient is alert and oriented x4.? Motor and sensory grossly intact.? Gait is normal. Course Vital Signs Vital signs: Vital Signs Temperature 36.8 C 08/17/24 13:26 Pulse Rate 92 08/17/24 13:26 Respiratory Rate 22 H 08/17/24 13:26 Blood Pressure 128/65 08/17/24 13:26 Pulse Oximetry 99 08/17/24 13:26 Oxygen Delivery High Flow Nasal Cannula 08/17/24 13:26 Oxygen Flow Rate 8 08/17/24 13:26 Temperature 36.6 C 08/17/24 18:48 Pulse Rate 102 H 08/17/24 20:00 Respiratory Rate 20 08/17/24 20:00 Blood Pressure 114/48 L 08/17/24 18:48 Pulse Oximetry 91 08/17/24 20:00 Oxygen Delivery Nasal Cannula 08/17/24 20:00 Oxygen Flow Rate 6 08/17/24 20:00 Medical Decision Making MDM Narrative Medical decision making narrative: Patient was placed in Room # Six by EMS History and physical was performed. WBCs 27.4 was 23.52 days ago on the . Rest of the CBC was normal. D-dimer was 1.43 PTT was 23.2 PT and INR were normal. PH 7.46 with a PO2 of 56.5 and pCO2 of 27.3 bicarb 19.1 O2 sat 89.5% CMP:abnormal Lactic acid 2.2 Magnesium normal Troponin:normal ETOH:negative flu COVID RSV:negative CTA PE study:1. No definitive pulmonary embolism with evaluation mildly limited in the segmental and more significantly limited in the subsegmental pulmonary arteries due to comminution of streak and motion artifact and swallows quantum mottle related to patient body habitus. 2. Progression of diffuse crazy paving pattern throughout both lungs with differential including worsening moderate pulmonary edema, pneumonia or hypersensitivity pneumonitis. 3. Small sliding-type hiatal hernia. Independent Historian: EMS External Source Review: Differential Dx includes but not limited to Pneumonia electrolyte imbalance acute coronary disease Medications were Reviewed: home meds reviewed Independently Interpreted by me: labs independently interpreted by me. Meds, treatment, ED course: DuoNeb non-rebreather mask, cefepime 1 g Social Situation Impacting Patients Care: Shared decision Making: evaluation was discussed all questions were asked and answered patient agreed with the plan. She will be readmitted. Discussed with Nurse practitioner Grace Betancourt admit to [facility] with multifocal pneumonia full admit DISCHARGE DIAGNOSIS: multifocal pneumonia, CTA pending DISPOSITION: admit to [facility] CONDITION AT DISCHARGE: stable Vital Signs Vital Signs: Vital Signs Temperature 36.8 C 08/17/24 13:26 Pulse Rate 92 08/17/24 13:26 Respiratory Rate 22 H 08/17/24 13:26 Blood Pressure 128/65 08/17/24 13:26 Pulse Oximetry 99 08/17/24 13:26 Oxygen Delivery High Flow Nasal Cannula 08/17/24 13:26 Oxygen Flow Rate 8 08/17/24 13:26 Temperature 36.6 C 08/17/24 18:48 Pulse Rate 102 H 08/17/24 20:00 Respiratory Rate 20 08/17/24 20:00 Blood Pressure 114/48 L 08/17/24 18:48 Pulse Oximetry 91 08/17/24 20:00 Oxygen Delivery Nasal Cannula 08/17/24 20:00 Oxygen Flow Rate 6 08/17/24 20:00 Lab Data 08/17/24 15:00 08/17/24 15:00 Labs: Lab Results 08/17/24 08/17/24 08/17/24 Range/Units 15:00 15:03 15:40 WBC 27.4 H* (4.8-10.8) K/mm3 RBC 4.93 (4.20-5.40) M/mm3 Hgb 14.6 (12.0-15.0) g/dL Hct 46.4 (35.0-49.0) % MCV 94.1 (78.0-102.0) fL MCH 29.6 (27.0-31.0) pg MCHC 31.5 L (32-36) g/dL RDW 14.0 (11.6-14.4) % Plt Count 378 (150-420) K/mm3 MPV 9.4 (9.2-11.8) fl PT 11.3 (9.50-12.1) Seconds INR 1.0 APTT 23.2 L (23.9-30.70) Sec D-Dimer 1.43 H* (0.19-0.50) mg/L Sodium 136 L (137-145) mmol/L Potassium 4.1 (3.4-5.0) mmol/L Chloride 108 H (98-107) mmol/L Carbon Dioxide 19 L (22-30) mmol/L Anion Gap 9 (4-12) mmol/L BUN 12 (7-17) mg/dL Creatinine 0.81 (0.7-1.0) mg/dL Estim Creat Clear Calc 72 ml/min Estimated GFR > 60 (59 - ) Glucose 146 H (65-110) mg/dL Calculated Osmolality 284 L (285-295) mOsm/kg Lactic Acid 2.2 H (0.4-2.0) mmol/L Calcium 8.4 (8.4-10.2) mg/dL Magnesium 2.0 (1.6-2.3) mg/dL Total Bilirubin 1.1 (0.2-1.3) mg/dL AST 30 (14-36) U/L ALT 38 H (6-35) U/L Alkaline Phosphatase 66 (38-126) U/L Troponin I < 0.012 (0.000-0.034) ng/mL NT-Pro-B Natriuret Pep 239 H (19.9-100) pg/mL Total Protein 6.4 (6.3-8.2) g/dL Albumin 3.2 L (3.5-5.1) g/dL Urine Opiates Screen Negative (Negative) Urine Methadone Screen Negative (Negative) Ur Barbiturates Screen Negative (Negative) Ur Phencyclidine Scrn Negative (Negative) Ur Amphetamine Screen Negative (Negative) U Benzodiazepines Scrn Negative (Negative) Urine Cocaine Screen Negative (Negative) U Cannabinoids Screen Negative (Negative) Ethyl Alcohol < 10 (<10) mg/dL Influenza A (RT-PCR) Negative (Negative) Influenza B (RT-PCR) Negative (Negative) RSV (RT-PCR) Negative (Negative) SARS-CoV-2 RNA (RT-PCR) Negative (Negative) ABG Data ABG results: 08/17/24 15:03 Puncture Site Left radial ABG pH 7.46 H ABG pCO2 27.3 L ABG pO2 56.5 L ABG HCO3 19.1 L ABG O2 Saturation 89.5 L ABG Base Excess -2.9 L Oxyhemoglobin 88.4 L O2 Delivery Device Nasal cannula O2 Liters/Min 6.0 Discharge Plan Discharge Clinical Impression: Multifocal pneumonia Patient Disposition: Still a Patient Condition: Stable
--- OUTSIDE RECORDS SUMMARY | 2024-08-17 13:26 | XMS_ITS | Data Portability ---
Author Organization [facility] Address [address] [place] [address] Care Team Providers Care Information Management Specialist Name Role Phone PIPO WARD Primary Care Provider [phone] Assessment No assessment recorded. Plan of Treatment Reminders Order Date Submit Date Provider Last Modified By Organization Details Last Modified Time Details Appointments ANY 15 2024 10:45A Jose Ward PA-C Not available Not available Not available Lab influenza virus A + B + SARS-CoV- 2 (COVID19) Ag panel, rapid IA, upper respirato ry specimen 2024 025 [email or web address] In-Office Order, Internal Use Only DO Not Attach Compendium DO Not Attach Compendium, Do Not Delete/merge, [id number] 08/12/2024 15:15:09 rsv (respirat ory syncytial virus), rapid, nasophary ngeal 2024 025 [email or web address] In-Office Order, Internal Use Only DO Not Attach Compendium DO Not Attach Compendium, Do Not Delete/merge, [id number] 08/12/2024 15:15:08 Referral physical therapist referral 2023 [email or web address] [address], [place], [address], 11/21/2023 13:58:35 physical therapist [facility] 2023 0[email or web address], [address], [place], [address], 11/21/2023 13:58:45 physical therapist referral 2023 [email or web address] [facility], [address], [address] , [place], [address], 09/19/2023 10:33:01 Procedures None recorded. Surgeries None recorded. Imaging XR, hip, unilatera l 2023 024 [email or web address] [facility] Scheduling, [address], [place], [address], 10/30/2023 09:06:49 Medication Orders omeprazol e 20 mg capsule,d elayed release 2024 025 [id number], [address], [place], [place], [id number], 08/12/2024 15:15:08 ondansetr on HCl 4 mg tablet 2024 [facility]25 [id number], [address], [place], [place], [id number], 08/12/2024 15:15:07 fluoxetin e 20 mg capsule 2023 024 [id number], [address], [place], [place], [id number], 02/18/2024 15:47:32 sulfameth oxazole 400 mg-trimet hoprim 80 mg tablet 2023 024 [facility]98221, [address], [place], [place], [id number], 01/08/2024 15:03:20 albuterol sulfate 2.5 mg/3 mL (0.083 %) solution for nebulizat ion 2023 024 [facility]79019, [address], [place], [place], [id number], 08/07/2023 10:43:59 albuterol sulfate HFA 90 mcg/actua tion aerosol inhaler 2023 024 [id number], [address] , [place], [place], [id number], 08/07/2023 10:43:58 Patient TargetsNo targets recorded. Patient Instructions Encounter Date Encounter Id Patient Instructions Last Modified By Organization Details Last Modified Time 08/07/2023 [id number] A healthy lifestyle: care instructions ann Not available 08/07/2023 10:42:43 11/04/2023 [id number] A healthy lifestyle: care instructions anney Not available 11/04/2023 16:17:07 01/06/2024 [id number] A healthy lifestyle: care instructions anney Not available 01/06/2024 16:26:51 02/17/2024 [id number] A healthy lifestyle: care instructions anney Not available 02/17/2024 12:16:51 learning about high blood pressure jnanney Not available 02/17/2024 12:16:32 Reason for Referral Physical Therapist Referral for Pain of left hip joint Referring Physician: Pipo Ward [facility], Encounter Date: 08/07/2023 Physical Therapist Referral for Pain of right hip joint Referring Physician: Pipo Ward [facility], Encounter Date: 11/04/2023 Physical Therapist Referral for Pain of right shoulder joint Referring Physician: Pipo Ward [facility], Encounter Date: 11/04/2023 Results Created Date Observation Date Name Description Value Unit Range Abnormal Flag Note LastModifiedBy Organization Detail LastModifiedTime 08/13/1908/12/2024 rsv (resp irato ry syncy tial virus ), rapid , nasop haryn geal RSV negati ve Not Available In-Office Order Internal Use Only DO Not Attach Compendium DO Not Attach Compendium, Do Not Delete/merge, [id number] 08/12/2024 14:54:45 08/13/1908/12/2024 influ kaylin virus A + B + SARS- CoV-2 (COVI D19) Ag panel , rapid IA, upper respi rator y speci men Flu A negati ve Not Available In-Office Order Internal Use Only DO Not Attach Compendium DO Not Attach Compendium, Do Not Delete/merge, [id number] 08/12/2024 14:54:40 08/13/19 25 08/12/2024 influ kaylin [...] DO Not Attach Compendium, Do Not Delete/merge, [id number] 08/12/2024 14:54:40 08/14/1908/13/2024 XR, chest No observ ation record ed. [facility] [address] [place], [address], 08/13/2024 15:17:32 08/14/19 25 08/13/2024 CT, angio gram, chest , w/ contr ast No observ ation record ed. [facility] [address] [place], [address], 08/13/2024 17:02:05 Result Notes None recorded. Problems Name Problem SNOMED Code Status Onset Date Resolution Date Notes Provider Name and Address Organization Details Recorded Time Essential hypertension 97662387 Active CLEM Zimmer, [facility] 6 11:37:58 Diabetes mellitus 82310931 Active CLEM Zimmer, [place] - [facility] 6 11:37:58 Acute conjunctivitis 26996935 Active Janessa Bullock [place] null, [place] [facility] 6 11:37:58 Anxiety 73087368 Active Janessa Bullock [place], [place] [facility] 6 11:37:58 Plantar fasciitis 751764809 Active Pipo Ward PA-C Attn: Accountjuliana g,[address] [place], [address], [place] [facility] 6 12:14:26 Abdominal pain 15991885 Active Janessa Bullock [place] [facility] 6 11:37:58 Acute sinusitis 41866143 Active Janessa Bullock [place] [facility] 6 11:37:58 Moderate chronic obstructive pulmonary disease 018165480 Active 2016 Pipo Ward PA-C Attn: Accountjuliana g,[address] [place], [address], [place] [facility] 7 11:53:07 Asthma 096242193 Active 2016 Pipo Ward PA-C Attn: Accountjuliana g,[address] [place], [address], [place] [facility] 7 11:53:17 Problem Notes None recorded. Procedures Surgical History Date Name Laterality Status Provider Name and Address Organization Details Recorded Time 09/04/19 15 Total hysterectomy completed Lyn Singer APN, DEBI-C Attn: Accounting, [address] [place], [address], [place] [facility] 09/05/2023 14:01:04 04/01/19 08 cholecystectomy completed Yulisa Jernigan MA [place] - [facility] 01/31/2021 11:08:23 04/01/19 00 Appendectomy completed Yulisa Jernigan [place] [facility] 01/31/2021 11:08:09 Knee Surgery completed Kinsey Nicholas MA [place] - [facility] 09/03/2014 15:34:10 Imaging Results Imaging Date Name Status [facility]Modified by [facility] Details LastModified Time 08/13/2024 XR, chest completed [facility] [address] [place], [address], 08/13/2024 15:17:32 08/13/2024 CT, angiogram, chest, w/ contrast completed [facility] [address] [place], [address], 08/13/2024 17:02:05 Procedure Notes None recorded. Medical Equipment None Reported. Allergies Allergen ID Allergen Name Allergen Category Reaction Reaction Severity Criticality Documentation Date Start Date Code Code System Note Provider Name and Address Organization Details Recorded Time 455918 Substance with sulfonami de structure and antibacte rial mechanism of action (substanc e) medicatio n vomiting Not available Not available 01/08/2024 81747 8003 SNOMED CLEM [place], [place] - [facility] 4 15:05:29 360989 clindamyc in Not available vomiting Not available Not available 01/08/2024 2582 RxNorm CLEM [place], [place] [facility] 4 15:05:40 024797 Medrol medicatio n chest pain vomiting Not available Not available Not available 08/12/202496924 2 RxNorm CLEM [place], [place] - [facility] 5 14:26:17 21018 Product containin g penicilli n (product) medicatio n Not available Not available Not available 09/03/2014 32604 8001 SNOMED CLEM [place], [place] - [facility] 5 15:34:10 48583 Cipro medicatio n Not available Not available Not available 09/03/2014 72179 3 RxNorm CLEM [place], [place] [facility] 5 15:34:10 89970 morphine medicatio n Not available Not available Not available 09/03/2014 7052 RxNorm CLEM [place], [place] [facility] 5 15:34:10 66244 Darvocet- N medicatio n Not available Not available Not available 09/03/2014 76280 UNK Kinsey Nicholas [place], [place] [facility] 5 15:34:10 82829 Keflex medicatio n Not available Not available Not available 09/13/2014 7 RxNorm Joi MatiasCLEM martinez jasmin, [place] - [facility] 5 13:10:05 Medications Name Sig [...] completed Not Available Not Available Not Available ipratropium 0.5 mg-albutero l 3 mg (2.5 mg base)/3 mL nebulizatio n soln USE 3 ML VIA NEBULIZER EVERY 6 HOURS active Not Available Not Available No t Available albuterol sulfate 2.5 mg/3 mL (0.083 %) solution for nebulizatio n USE 3 ML VIA NEBULIZER THREE TIMES DAILY active Not Available Not Available No t Available azithromyci n 250 mg tablet TAKE 2 TABLETS (500 MG) BY ORAL ROUTE ONCE DAILY FOR 1 DAY THEN 1 TABLET (250 MG) BY ORAL ROUTE ONCE DAILY FOR 4 DAYS active Not Available Not Available No t Available ibuprofen 800 mg tablet TAKE 1 [...] Not Available ondansetron HCl 4 mg tablet TAKE 1 TABLET BY MOUTH TWICE DAILY FOR 10 DAYS active Not Available Not Available No t Available prednisone 20 mg tablet 03/30 completed Not [...] Available omeprazole 20 mg capsule,del ayed release TAKE 1 CAPSULE BY MOUTH EVERY DAY active Not Available Not Available No t Available diclofenac sodium 75 mg tablet,quoc yed release [...] Updated DateTime 4 170.18 cm 32 kg/m2 40270.2 4 g 98 % 98 % 78 /min 130 mm[Hg] 82 mm[Hg] Yudy Betancourt MA [facility] 4 10:27:15 Date Recorded Body height Body mass index (BMI) Body weight Oxygen saturation Oxygen saturation in Arterial blood by Pulse oximetry Heart rate Provider Name and Address Organization Details Last Updated DateTime 4 170.18 cm 31.9 kg/m2 88599.0 5 g 99 % 99 % 82 /min Yudy Betancourt MA [facility] 4 15:53:00 Date Recorded Systolic blood pressure Diastolic blood pressure Provider Name and Address Organization Details Last Updated DateTime 11/04/2023 138 mm[Hg] 70 mm[Hg] Pipo Ward PA-C Attn: [address]ing,[address] [place], [address], [facility] 11/04/2023 16:18:31 Date Recorded Body height Body mass index (BMI) Body weight Oxygen saturation Oxygen saturation in Arterial blood by Pulse oximetry Heart rate Systolic blood pressure Diastolic blood pressure Provider Name and Address Organization Details Last Updated DateTime 4 170.18 cm 31.9 kg/m2 90278.3 5 g 97 % 97 % 69 /min 151 mm[Hg] 78 mm[Hg] Yudy Betancourt MA [facility] 4 16:05:32 Date Recorded Body height Body mass index (BMI) Body weight Oxygen saturation Oxygen saturation in Arterial blood by Pulse oximetry Heart rate Respiratory rate Systolic blood pressure Diastolic blood pressure Provider Name and Address Organization Details Last Updated DateTime 4 170.18 cm 31.2 kg/m2 37922.3 2 g 98 % 98 % 78 /min 14 /min 154 mm[Hg] 76 mm[Hg] Justine Brooks MA [facility] 4 11:57:27 Date Recorded Body height Body mass index (BMI) Body weight Body temperature Oxygen saturation Oxygen saturation in Arterial blood by Pulse oximetry Heart rate Respiratory rate Systolic blood pressure Diastolic blood pressure Provider Name and Address Organization Details Last Updated DateTime 5 170.18 cm 29.4 kg/m2 08897.3 7 g 97.5 [degF] 85 % 85 % 92 /min 22 /min 142 mm[Hg] 82 mm[Hg] Justine Brooks MA [place] - [facility] 5 14:32:48 Social History Question Answer Notes LastModified by Organizat ion Details LastModified Time Tobacco Smoking Status Never Smoker Kinsey Nicholas MA null, [place] - [facility] 09/03/2014 15:34:10 Are You Blind [...] available 09/29/2015 Are You Sexually Active? No [email or web address] Information not available 09/03/2022 Smoke Alarm In [...] Has Tobacco Cessation Counseling Been Provided? No [email or web address] Information not available 01/31/2021 On What Date [...] other forms of tobacco or nicotine? No [email or web address] Information not available 02/15/2023 What is your [...] 12/12/2016 What is your exercise level? Occasional [email or web address] Information not available 11/27/2021 Mental Status Question Answer Note LastModified by Organizat ion Details LastModified Time Do you feel stressed (tense, restless, nervous, or anxious, or unable to sleep at night)? [id number] [email or web address] Information not available 07/25/2021 Do you have [...] Eating Disorder N Anemia N Heart Attack ([place]) Y Anxiety Disorder N Diabetes Y Muscle, [...] trivalent, PF 04/13/2013 completed Liss Frey MA [facility] 01/23/2022 15:29:44 Past Encounters Encounter ID Performer Location Encounter Start Date Encounter Closed Date Diagnosis/Indication Diagnosis SNOMED-CT Code Diagnosis ICD10 Code Diagnosis Note [id number] Carlos Burciaga MD [facility] [address] [place] [address] 09/03/2014 15:07:58 09/06/2014 11:08:13 Essential hypertension 72852219 Diabetes mellitus 55301134 [id number] Carlos Burciaga MD [facility] [address] [place] [address] 09/24/2014 14:31:52 09/30/2014 17:27:04 Acute conjunctivitis 78789136 Essential hypertension 31931915 [id number] Carlos Burciaga MD [facility] [address] [place] [address] 04/05/2015 10:14:47 04/05/2015 11:41:01 Essential hypertension 28812962 I10 Anxiety 62447470 F41.9 [id number] Pipo Ward PA-C [facility] [address] [place] [address] 06/24/2015 10:18:57 06/24/2015 11:40:40 Essential hypertension 13251339 I10 Diabetes mellitus 377366 09 E11.9 Plantar fasciitis 973004 003 M72.2 [id number] Pipo Ward PA-C [facility] [address] [place] [address] 09/06/2015 16:35:56 09/06/2015 17:04:45 Abdominal pain 28606563 R10.9 [id number] Carlos Burciaga MD [facility] [address] [place] [address] 09/29/2015 16:32:11 09/29/2015 17:02:21 Anxiety 18732435 F41.9 Plantar fasciitis 742806 003 M72.2 Acute sinusitis 72456617 J01.90 [id number] Pipo Ward PA-C [facility] [address] [place] [address] 12/28/2015 11:19:57 12/28/2015 12:15:53 Plantar fasciitis 641145139 M72.2 [id number] Carlos Burcaiga MD [facility] [address] [place] [address] 02/06/2016 11:12:41 02/06/2016 12:09:33 Essential hypertension 88327086 I10 Acute sinusitis 53978172 J01.90 [id number] Carlos Burciaga MD [facility] [address] [place] [address] 03/29/2016 11:04:15 03/29/2016 12:33:40 Pain in right foot 0373438895 07296 M79.671 Pain of ri ght hip joint 3671668812 71938 M25.449 [id number] Pipo Ward PA-C [facility] [address] [place] [address] 05/28/2016 11:27:32 05/28/2016 14:09:16 Spasm of back muscles 952457397 M62.830 Plantar fasciitis 125519 003 M72.2 Asthma 673994328 J45.20 [id number] Pipo Ward PA-C [facility] [address] [place] [address] 06/19/2016 10:53:19 06/19/2016 14:37:31 Pain of right hip joint 2587606372 09985 M25.557 [id number] Pipo Ward PA-C [facility] [address] [place] [address] 06/25/2016 14:50:38 06/25/2016 17:06:34 Lumbar radiculopathy 119733909 M54.16 [id number] Carlos Burciaga MD [facility] [address] [place] [address] 10/18/2016 15:16:54 10/18/2016 16:37:52 Spasm of back muscles 563696490 M62.023 [id number] Carlos Burciaga MD [facility] [address] [place] [address] 11/27/2016 14:55:56 11/27/2016 16:52:27 Essential hypertension 98538432 I10 Diabetes mellitus 850052 09 E11.9 Screening for malignant neoplasm of colon 265399411 Z12.11 Mild inter mittent asthma 197541331 J45.20 [id number] Carlos Burciaga MD [facility] [address] [place] [address] 12/06/2016 15:22:23 12/06/2016 16:31:40 Screening for malignant neoplasm of breast 609226031 Z12.31 Dyspnea on exertion 6084 5006 R06.09 Asthma 342147458 J45.30 Essential hypertension 44739377 I10 [id number] Carlos Burciaga MD [facility] [address] [place] [address] 12/12/2016 15:32:31 12/12/2016 17:03:57 Diabetes mellitus 89661091 E11.9 [id number] Carlos Burciaga MD [facility] [address] [place] [address] 04/09/2017 09:49:38 04/09/2017 11:34:13 Moderate chronic obstructive pulmonary disease 685802033 J41.0 High hemog lobin A1c level 262183029 R73.09 [id number] Carlos Burciaga MD [facility] [address] [place] [address] 05/23/2017 14:36:44 05/23/2017 15:57:41 Mild intermittent asthma 809236586 J45.20 Essential hypertension 02910570 I10 Diabetes mellitus 145089 09 E11.9 [id number] Carlos Burciaga MD [facility] [address] [place] [address] 07/16/2017 14:45:17 07/16/2017 15:29:02 Right upper quadrant pain 621230202 R10.11 [id number] Carlos Burciaga MD [facility] [address] [place] [address] 09/16/2017 13:39:37 09/16/2017 14:43:11 Acute maxillary sinusitis 10648092 J01.01 [id number] Carlos Burciaga MD [facility] [address] [place] [address] 10/15/2017 16:39:21 10/15/2017 17:46:43 Essential hypertension 82906668 I10 Diabetes mellitus 761463 09 E11.9 [id number] Carlos Burciaga MD [facility] [address] [place] [address] 10/22/2017 11:55:31 10/22/2017 13:06:27 Moderate chronic obstructive pulmonary disease 436748360 J41.0 Essential hypertension 27743317 I10 Diabetes mellitus 402273 09 E11.9 [id number] Pipo Ward PA-C [facility] [address] [place] [address] 01/09/2018 11:42:14 01/09/2018 12:58:27 Pain of right hip joint 8803050074 11584 M25.404 [id number] Pipo Ward PA-C [facility] [address] [place] [address] 01/21/2018 10:35:54 01/21/2018 11:28:17 Difficulty breathing 668204709 R06.00 Dyspnea on exertion 6084 5006 R06.09 [id number] Pipo Ward PA-C [facility] [address] [place] [address] 02/04/2018 11:05:50 02/04/2018 12:06:28 Moderate chronic obstructive pulmonary disease 931784416 J41.0 Essential hypertension 48391812 I10 Diabetes mellitus 239271 09 E11.9 Asthma 401802366 J45.30 Screening for malignant neoplasm of colon 196052204 Z12.11 [id number] Pipo Ward PA-C [facility] [address] [place] [address] 03/14/2018 10:40:57 03/14/2018 11:35:48 Generalized anxiety disorder 49069433 F41.1 Chronic depression 80687 0009 F34.1 [id number] OSIEL [facility] [address] [place] [address] 05/02/2018 14:32:18 05/02/2018 15:57:52 Dental caries 75552844 K02.52 [id number] OSIEL [facility] [address] [place] [address] 06/13/2018 14:42:07 06/13/2018 15:43:35 Acute maxillary sinusitis 14731286 J01.01 [id number] Pipo Ward PA-C [facility] [address] [place] [address] 09/24/2018 14:32:43 09/24/2018 15:46:47 Dyspnea on exertion 66485868 R06.09 [id number] [facility] [address] [place] [address] 10/07/2018 13:49:49 10/07/2018 14:46:04 Allergic reaction to insect bite 450113557 W57.XXXA [id number] O[facility]EL [facility] [address] [place] [address] 10/14/2018 13:52:26 10/14/2018 15:19:38 Contusion of forearm 18222295 S50.12XA [id number] Pipo Ward PA-C [facility] [address] [place] [address] 12/03/2018 16:34:44 12/03/2018 17:10:21 Pain in right knee 9616680411 22339 M25.561 Diabetes mellitus 398214 09 E11.9 Essential hypertension 88499358 I10 [id number] [facility] [address] [place] [address] 12/22/2018 14:44:35 12/22/2018 16:39:44 Essential hypertension 35979408 I10 Diabetes mellitus 926159 09 E11.9 History of asthma 754090 007 Z87.09 [id number] OSIEL [facility] [address] [place] [address] 03/11/2019 14:55:42 03/11/2019 16:04:30 Anxiety 25814672 F41.1 Generalize d anxiety disorder 93627477 F41.1 Screening for malignant neoplasm of colon 377726823 Z12.11 Essential hypertension 33317128 I10 [id number] O[facility]EL [facility] [address] [place] [address] 03/18/2019 15:33:27 03/18/2019 16:29:27 Anxiety 54494842 F41.1 [id number] Pipo Ward PA-C [facility] [address] [place] [address] 03/30/2019 16:17:50 03/30/2019 17:53:53 Acute sinusitis 11235198 J01.90 Diabetes mellitus 431757 09 E11.9 Essential hypertension 68171610 I10 Moderate c hronic obstructive pulmonary disease 013623911 J41.0 Acute maxi llary sinusitis 37869266 J01.01 [id number] Pipo Ward PA-C [facility] [address] [place] [address] 05/25/2019 14:31:16 05/25/2019 15:30:55 Lateral epicondylitis 760433633 M77.12 [id number] Pipo Ward PA-C [facility] [address] [place] [address] 12/04/2019 09:35:57 12/04/2019 15:28:10 Acute low back pain 440242251 M54.5 Generalize d anxiety disorder 28744604 F41.1 [id number] Carlos Burciaga MD [facility] [address] [place] [address] 09/20/2020 14:51:15 09/21/2020 12:51:42 Essential hypertension 45238081 I10 Asthma 904398571 J45.30 Body mass index 30+ - obesity 221331618 Z68.32 [id number] Pipo Ward PA-C [facility] [address] [place] [address] 01/31/2021 11:00:46 01/31/2021 12:03:42 Pain of left wrist 9322585638 39226 M25.532 Diabetes mellitus 675991 09 E11.9 Essential hypertension 07843508 I10 [id number] Carlos Burciaga MD [facility] [address] [place] [address] 07/25/2021 14:39:40 07/25/2021 15:44:07 Lumbar radiculopathy 083736753 M54.16 [id number] Pipo Ward PA-C [facility] [address] [place] [address] 11/27/2021 14:48:25 11/28/2021 09:51:24 Overweight 909407671 E66.3 Dyspnea on exertion 6084 5006 R06.09 Angina co- occurrent and due to coronary arteriosclerosis 2244665211 2632241 I25.275 [id number] OSIEL Good[facility] [address] [place] [address] 12/26/2021 14:38:38 12/26/2021 15:23:33 Essential hypertension 16001785 I10 [id number] Pipo Ward PA-C [facility] [address] [place] [address] 09/03/2022 14:16:15 09/04/2022 10:10:46 Dyspnea on exertion 63642934 R06.09 Coronary arteriosclerosis 05807326 I25.10 Myocardial infarction 22 280974 I21.9 Overweight 618703747 E66 .3 [id number] Pipo Ward PA-C [facility] [address] [place] [address] 02/15/2023 15:19:14 02/25/2023 15:19:22 Moderate persistent asthma 938999193 J45.40 Dyspnea on exertion 6084 5006 R06.09 Overweight 346251924 E66 .3 [id number] Carlos Burciaga MD [facility] [address] [place] [address] 08/07/2023 10:11:41 08/12/2023 14:49:59 Pain of left hip joint 1676109749 28094 M25.552 Overweight 987732015 E66 .3 Moderate p ersistent asthma 714676994 J45.40 Asthma 370529350 J45.30 [id number] Carlos Burciaga MD [facility] [address] [place] [address] 11/04/2023 15:39:17 11/05/2023 20:37:23 Pain of right hip joint 9885683310 88902 M25.551 Pain of ri ght shoulder joint 4937702504 0105485 M25.511 Overweight 013292209 E66 .3 [id number] Pipo Ward PA-C [facility] [address] [place] [address] 01/06/2024 15:51:50 01/09/2024 14:54:04 Cellulitis of right hand 2551888545 6424814 L03.113 Overweight 978050877 E66 .3 [id number] Carlos Burciaga MD [facility] [address] [place] [address] 02/17/2024 11:36:34 02/21/2024 13:44:14 Essential hypertension 06191599 I10 Mixed anxi ety and depressive disorder 155960948 F41.8 Overweight 639184524 E66 .3 [id number] Carlos Burciaga MD [facility] [address] [place] [address] 08/12/2024 14:21:21 08/12/2024 15:16:35 Acute lower respiratory tract infection 012918671 J22 Hypoxia 793639169 R09.02 refuses ER History of asthma 326126 007 Z87.09 Gastroesop hageal reflux disease without esophagitis 370651477 K21.9 Bilious vomiting 2392744 2 R11.14 Overweight in adulthood with body mass index of 25 or more but less than 30 897560316 Z68.29 Health Concerns Section Related Observation LastModified by Organization Detai ls LastModified Time None Recorded Concern Status LastModified by Organization Details LastModified Time None Recorded Advance Directives Directive None Recorded Payers Encounter Date Sequence Insurance Name Policy Number Policy Curtis Covered Member ID Curtis Member ID Guarantor Name 08/07/2023 1 [employer] (MEDICAID REPLACEMENT - HMO) [id number] Niru Agustin [id number] Niru Agustin 11/04/2023 1 [employer] (MEDICAID REPLACEMENT - HMO) [id number] Niru Agustin [id number] Niru Agustin 01/06/2024 1 [facility] (MEDICAID REPLACEMENT - HMO) [id number] Niru Agustin [id number] 68 Niru Agustin 02/17/2024 1 [place] (MEDICAID REPLACEMENT - HMO) [id number] Niru Agustin [id number] 68 Niru Agustin 08/12/2024 1 [place] (MEDICAID REPLACEMENT - HMO) [id number] Niru Agustin [id number] 68 Niru Manleysey Notes Date Note Type Note Provider Name and Address Organization Details Recorded Time 08/07/2023 text/html left side back a nd hip pain running down left leg...began to get worse 3 days ago... Pipo Ward PA-C Attn: [address] [place], [address], [place] [facility] 08/07/2023 10:44:01 11/04/2023 text/html has a nerve pain from her rt shoulder down to her feet...first given her 800 mg ibuprophen end of July...no relief...sleeps in a recliner for many months..no known injury... Pipo Ward PA-C Attn: [address] [place], [address], [place] 11/04/2023 16:18:56 01/06/2024 text/html got scratched by a cat has lymphnodes under rt axilla Pipo Ward PA-C Attn: [address] [place], [address], [place] [facility] 01/06/2024 16:27:18 02/17/2024 text/html stress at home...wants something to help...wants a support dog letter Pipo Ward PA-C Attn: [address] [place], [address], [place] [facility] 02/17/2024 12:21:49 08/12/2024 text/html started with severe asthma 3 weeks ago and has been declining since...also fever vomiting...today is an improvement but feels horrible..says she WILL NOT go to the hospital because she has an autistic grandson at home that no one else can take care of but her..also describes heartburn and stomach pain.. Pipo Ward PA-C Attn: [address] [place], [address], [facility] 08/12/2024 15:16:32 OBGyn Episode No OBEpisode recorded.
--- OUTSIDE RECORDS SUMMARY | 2024-08-17 13:26 | XMS_ITS | Clinical Summary ---
Author Organization [facility] Address [address] [place] [address] Phone Care Team Providers Care Pool Table Operator Name Role Phone Mike Ward Primary Care Provider [phone] Social History Tobacco Use Types Packs/Day Years [...] Insurance MEDICAID [place] JESSIKA BUSTAMANTE [id number] Care Teams Pool Table Operator Relationship Specialty Start Date End Date Mike Ward, [facility] [address] [place] [id number] PCP - General Physician Material Coordinator 06/20/16
--- OUTSIDE RECORDS SUMMARY | 2024-08-17 13:26 | XMS_ITS | Encounter Summary ---
Author Organization [facility] Address [address] [facility] [place] [address] Phone Care Team Providers Care Billing Rep Name Role Phone Mike Ward Primary Care Provider [phone] Encounter Details Date Type Department Care Team (Late st Contact Info) Description 11/04/2023 Transcribe Orders [facility] [address] [place] [address] Mike Ward [address] [place] [address] Pain in right hip (Primary Dx); Pain [...] region documented in this encounter Care Teams Billing Rep Relationship Specialty Start Date End Date Mike Ward PAC [address] [place] [address] PCP - General Physician Home Health Lvn 06/20/16 documented as of this encounter
[2024-08-17] MEDS: IPRATROPIUM 0.5 MG/ALBUTEROL SULFATE 2.5 MG AMPUL.NEB 3 ML INHALATION ×2 (13:51→23:39)
--- OUTSIDE RECORDS SUMMARY | 2024-08-17 14:03 | XMS_ITS | Encounter Summary ---
Author Organization [facility] Address [address] [facility] [place] [address] Phone Care Team Providers Care Apple Checker Name Role Phone Mike Ward Primary Care Provider [phone] Encounter Details Date Type Department Care Team (Late st Contact Info) Description 11/04/2023 Transcribe Orders [facility] [address] [place] [address] Mike Ward [address] [place] [address] Pain in right hip (Primary Dx); Pain [...] region documented in this encounter Care Teams Apple Checker Relationship Specialty Start Date End Date Mike Ward PAC [address] [place] [address] PCP - General Physician Tooth Cutter Contact Wheel 06/20/16 documented as of this encounter
--- OUTSIDE RECORDS SUMMARY | 2024-08-17 14:03 | XMS_ITS | Clinical Summary ---
Author Organization [facility] Address [address] [place] [address] Phone Care Team Providers Care E Commerce Architect Name Role Phone Mike Ward Primary Care Provider [phone] Social History Tobacco Use Types Packs/Day Years [...] Insurance [place] BUSTAMANTE [id number] Care Teams E Commerce Architect Relationship Specialty Start Date End Date Mike Wrad, [facility] [address] [place] [address] PCP - General Physician Toggle Press Operator 06/20/16
--- NOTE | 2024-08-17 14:19 | ECG_ITS ---
Test Date: 2024-08-17 15:07:54 Measurements Intervals [place] Rate: 110 P: 33 CA: 142 QRS: 28 QRSD: 87 T: 42 QT: 307 QTc: 417 Interpretive Statements SINUS TACHYCARDIA WITH OCCASIONAL VENTRICULAR PREMATURE COMPLEXES LOW QRS VOLTAGE IN PRECORDIAL LEADS [QRS DEFLECTION < 1.0 mV IN CHEST LEADS] NONSPECIFIC ST & T-WAVE ABNORMALITY BASELINE ARTIFACT PRESENT Compared to ECG 08/13/2024 13:53:39 NO SIGNIFICANT CHANGES Electronically Signed On 08-18-2024 13:16:37 CDT by Alli Lawson M.D.
[2024-08-17] MEDS: IPRATROPIUM 0.5 MG/ALBUTEROL SULFATE 2.5 MG AMPUL.NEB 3 ML (14:48)
[2024-08-17 15:06] LABS: Base Excess ABG -2.9 mmol/L (0-2); HCO3 ABG 19.1 mmol/L (23-29); Oxygen Saturation ABG 89.5 % (95-97); Oxyhemoglobin 88.4 % (94-100); PCO2 ABG 27.3 mmHg (35-45); PO2 ABG 56.5 mmHg (80-90); pH ABG 7.46 (7.35-7.45)
[2024-08-17 15:07] LABS: Device NASAL CANNULA; Modified Allen's Test Pass; Site Drawn LEFT RADIAL
[2024-08-17 15:09] LABS: Hematocrit 46.4 % (35.0-49.0); Hemoglobin 14.6 g/dL (12.0-15.0); Mean Corpuscular HGB Conc 31.5 g/dL (32-36); Mean Corpuscular Hemoglobin 29.6 pg (27.0-31.0); Mean Corpuscular Volume 94.1 fL (78.0-102.0); Mean Platelet Volume 9.4 fl (9.2-11.8); Platelet Count Result 378 K/mm3 (150-420); Red Blood Count 4.93 M/mm3 (4.20-5.40)
[2024-08-17 15:15] LABS: White Blood Count 27.4 K/mm3 (4.8-10.8)
[2024-08-17 15:24] LABS: D Dimer 1.43 mg/L (0.19-0.50)
[2024-08-17 15:26] LABS: Partial Thromboplastin Time 23.2 Sec (23.9-30.70); Prothrombin Time 11.3 Seconds (9.50-12.1)
[2024-08-17 15:33] LABS: Ethanol < 10 mg/dL (<10); Lactic Acid Reflex 2.2 mmol/L (0.4-2.0)
[2024-08-17 15:46] LABS: Influenza A QL RT-PCR Negative (Negative); Influenza B QL RT-PCR Negative (Negative); RSV RNA, RT-PCR Negative (Negative); SARS-CoV-2 RNA PCR Negative (Negative)
[2024-08-17] MEDS: CEFEPIME 1 GM/NS 50 ML 1 GM/50 ML BAG IVPB (15:54)
[2024-08-17 15:56] LABS: Troponin I < 0.012 ng/mL (0.000-0.034)
[2024-08-17 16:06] LABS: Amphetamine Screen Urine Negative (Negative); Barbiturate Screen Urine Negative (Negative); Benzodiazepines Screen Urine Negative (Negative); Cannabinoid Screen Urine Negative (Negative); Cocaine Screen Urine Negative (Negative); Methadone Screen Urine Negative (Negative); Opiate Screen Urine Negative (Negative); Phencyclidine Screen Urine Negative (Negative)
[2024-08-17 16:14] LABS: Alanine Aminotransferase 38 U/L (6-35); Albumin Level 3.2 g/dL (3.5-5.1); Alkaline Phosphatase 66 U/L (38-126); Anion Gap 9 mmol/L (4-12); Aspartate Amino Transferase 30 U/L (14-36); Bilirubin,Total 1.1 mg/dL (0.2-1.3); Blood Urea Nitrogen 12 mg/dL (7-17); Calcium 8.4 mg/dL (8.4-10.2); Carbon Dioxide 19 mmol/L (22-30); Chloride 108 mmol/L (98-107); Estimated CRCL calculation 72 ml/min; Estimated Glomerular Filt Rate > 60; Glucose 146 mg/dL (65-110); Osmolality Calculated 284 mOsm/kg (285-295); Potassium 4.1 mmol/L (3.4-5.0); Sodium 136 mmol/L (137-145); Total Protein 6.4 g/dL (6.3-8.2)
[2024-08-17 16:33] LABS: NT Pro B Type Natriuretic Pept 239 pg/mL (19.9-100)
[2024-08-17 17:06] LABS: Reflex Lactic Acid Yes or No Add Lactic
[2024-08-17 17:35] LABS: Lactic Acid 2.1 mmol/L (0.7-2.0)
--- NOTE | 2024-08-17 19:02 | PC.NURSE ---
Patient arrived to unit in w/c and was able to transfer from chair to bed with stand by assist. Patient educated on hospital policies, use of bed controls and use of call light. Blue folder given to patient and family. Patient voices understanding of education.
[2024-08-17] MEDS: VANCOMYCIN 2,000 MG/NS 500 ML 2,000 MG/500 ML BAG 250 MG IVPB (20:07)
[2024-08-17 21:48] LABS: MRSA (PCR) NOT DETECTED (NOT DETECTE)
[2024-08-17] MEDS: CEFEPIME 2 GM/NS 50 ML 2 GM/50 ML BAG IVPB (23:38)
[2024-08-18] VITALS (14 sets, daily range): BP systolic 112–127; BP diastolic 55–61; PULSE 7–87; RESP 16–20; TEMP 36.2–36.6; O2SAT 91–98
[2024-08-18] MEDS: IPRATROPIUM 0.5 MG/ALBUTEROL SULFATE 2.5 MG AMPUL.NEB 3 ML INHALATION ×4 (05:35→23:46)
--- NOTE | 2024-08-18 07:00 | P.HP_ITS ---
H&P: HPI History of Present Illness Date/Time: 08/18/24 07:00 Chief Complaint: Dyspnea Narrative: This is a very pleasant 59-year-old female patient with past medical history of coronary artery disease status post AZ, asthma and hypertension who presented to the emergency room yesterday afternoon with complaints of dyspnea that was increasing. Patient was recently hospitalized here for a pneumonia and treated with azithromycin but pushed for discharge on August 16 secondary to it being her 's birthday and as she had improved she was discharged home at that time in stable condition. Once home she developed some increased dyspnea yesterday, called 911 and EMS found her 83% on room air requiring non-rebreather to increase her sats. Patient was brought to the emergency room where re- evaluation was performed and it was discovered that she had developed a worsening leukocytosis with WBCs of 27.4, CTA PE protocol with negative PE but there was progression of multifocal pneumonia. Patient eventually was weaned to nasal cannula at 6 L and then placed in Med/surg for continued treatment on vancomycin and cefepime. patient is a full code with noted allergies Augmentin, Cipro, morphine, penicillin, hydrocodone and Darvocet. Her metabolic panel is unremarkable, troponin normal at 0.012, EKG showing sinus tach with occasional PVCs with a rate of 110 and a lot of artifact causing concern for AZ, however patient with normal troponin and no acute symptoms of AZ. MRSA swab is negative. Her lactic acid performed in ER was 2.1. Coags were unremarkable. D-dimer was 1.43 which prompted the CTA PE protocol. Patient has pending labs for Legionella and strep pneumo. Sputum culture and blood cultures x2 are also pending. This morning patient states she feels a little improved, she is still requiring 5 L of nasal cannula this morning with sats of 96%. She is afebrile, non tachycardic, not tachypneic and normotensive. She has no other acute complaints such as nausea, vomiting, diarrhea, chest pain. She does report an intermittent productive cough. Review of Systems Review of Systems: See HPI All systems reviewed & are unremarkable except as noted in HPI and below PMFSH Past Medical History Medical History AZ (myocardial infarction) Asthma Hypertension Social History Social History Smoking status: Never smoker Second hand tobacco smoke exposure: No Alcohol intake: never Substance use: never Substance use type: does not use Do You Feel Safe in your Home?: Yes Lack of Transportation: No Lack of Food: Sometimes True Current Housing: I Have Housing Concerned About Future Housing: No Difficulty Paying Gas/Electric Bills: No Difficulty Paying for Meds: No Currently Unemployed: No Education: High School Diploma/GED Difficulty w/ Childcare or Family Care: No Gender identity (if verbalized by the patient): Female Spiritual care concerns: No Meds Home Medications and Allergies Home Medications ?Medication ?Instructions ?Recorded ?Confirmed ?Type albuterol sulfate 90 mcg/actuation 2 puff inhalation Q4-6H PRN 05/23/19 08/17/24 History aerosol inhaler Shortness Of Breath aspirin 81 mg tablet,delayed 81 mg PO DAILY 05/23/19 08/17/24 History release (Kory Low Dose Aspirin) fluticasone 113 mcg-salmeterol 14 1 puff inhalation DAILY 05/23/19 08/17/24 History mcg/actuation breath activated powdr metoprolol tartrate 50 mg tablet 50 mg PO DAILY 05/23/19 08/17/24 History omeprazole 20 mg capsule,delayed 20 mg PO DAILY 08/13/24 08/17/24 History release azithromycin 250 mg tablet See Rx Instructions PO .COMPLEX #6 08/16/24 08/17/24 Rx (Zithromax Z-Vince) tabs ipratropium 0.5 mg-albuterol 3 mg 3 ml inhalation Q6HRT #90 mL 08/16/24 08/17/24 Rx (2.5 mg base)/3 mL nebulization soln Allergies Allergy/AdvReac Type Severity Reaction Status Date / Time amoxicillin (From Augmentin) Allergy Rash Verified 08/17/24 13:31 ciprofloxacin Allergy Rash Verified 08/17/24 13:31 clavulanic acid (From Allergy Rash Verified 08/17/24 13:31 Augmentin) hydrocodone (From Vicodin) Allergy Rash Verified 08/17/24 13:31 morphine Allergy Rash Verified 08/17/24 13:31 Penicillins Allergy Rash Verified 08/17/24 13:31 propoxyphene (From Allergy Rash Verified 08/17/24 13:31 Darvocet-N 100) Vital Signs Vital Signs - 24 hr 08/17/24 13:26 08/17/24 13:35 08/17/24 13:45 Temperature 98.2 F Pulse Rate 92 116 H 100 Respiratory Rate 22 H 20 Blood Pressure 128/65 Pulse Oximetry 99 96 Oxygen Delivery High Flow Nasal Cannula Oxygen Flow Rate 8 08/17/24 13:46 08/17/24 13:47 08/17/24 13:51 Temperature Pulse Rate 101 H Respiratory Rate 20 Blood Pressure 118/69 Pulse Oximetry 97 96 98 Oxygen Delivery Non-Rebreather Mask Non-Rebreather Mask Oxygen Flow Rate 10 10 08/17/24 13:52 08/17/24 13:56 08/17/24 13:58 Temperature Pulse Rate Respiratory Rate Blood Pressure Pulse Oximetry 93 93 92 Oxygen Delivery Non-Rebreather Mask Non-Rebreather Mask Nasal Cannula Oxygen Flow Rate 10 10 6 08/17/24 14:00 08/17/24 14:01 08/17/24 14:15 Temperature Pulse Rate 106 H 102 H 112 H Respiratory Rate 27 H 29 H 23 H Blood Pressure 122/64 Pulse Oximetry 92 93 90 Oxygen Delivery Nasal Cannula Nasal Cannula Nasal Cannula Oxygen Flow Rate 6 6 6 08/17/24 14:16 08/17/24 14:30 08/17/24 14:31 Temperature Pulse Rate 104 H 103 H 104 H Respiratory Rate 16 32 H 29 H Blood Pressure 106/59 L 121/62 Pulse Oximetry 93 89 L Oxygen Delivery Nasal Cannula Nasal Cannula Oxygen Flow Rate 6 6 08/17/24 14:43 08/17/24 14:45 08/17/24 14:47 Temperature Pulse Rate 105 H 107 H 106 H Respiratory Rate 23 H 27 H 33 H Blood Pressure 104/84 Pulse Oximetry 92 91 93 Oxygen Delivery Nasal Cannula Oxygen Flow Rate 6 08/17/24 15:00 08/17/24 15:01 08/17/24 15:15 Temperature Pulse Rate 116 H 108 H 111 H Respiratory Rate 35 H 33 H 33 H Blood Pressure 120/52 L Pulse Oximetry 91 93 Oxygen Delivery Nasal Cannula Oxygen Flow Rate 6 08/17/24 15:16 08/17/24 15:30 08/17/24 15:31 Temperature Pulse Rate 118 H 113 H 113 H Respiratory Rate 32 H 35 H Blood Pressure 118/65 107/49 L Pulse Oximetry 92 89 L Oxygen Delivery Nasal Cannula Nasal Cannula Oxygen Flow Rate 6 6 08/17/24 15:45 08/17/24 15:46 08/17/24 16:00 Temperature Pulse Rate 107 H 113 H 105 H Respiratory Rate 27 H 32 H 30 H Blood Pressure 114/69 Pulse Oximetry 90 90 89 L Oxygen Delivery Nasal Cannula Nasal Cannula Oxygen Flow Rate 6 6 08/17/24 16:01 08/17/24 16:15 08/17/24 16:16 Temperature Pulse Rate 106 H 110 H 110 H Respiratory Rate 26 H 26 H 37 H Blood Pressure 127/61 118/46 L Pulse Oximetry 90 89 L Oxygen Delivery Nasal Cannula Nasal Cannula Oxygen Flow Rate 6 6 08/17/24 16:45 08/17/24 16:46 08/17/24 17:00 Temperature Pulse Rate 110 H 110 H 105 H Respiratory Rate 32 H 28 H 36 H Blood Pressure 120/58 L Pulse Oximetry 90 90 90 Oxygen Delivery Nasal Cannula Nasal Cannula Oxygen Flow Rate 6 6 08/17/24 17:01 08/17/24 17:15 08/17/24 17:16 Temperature Pulse Rate 105 H 108 H 108 H Respiratory Rate 29 H 30 H 27 H Blood Pressure 105/51 L 120/65 Pulse Oximetry 90 90 90 Oxygen Delivery Nasal Cannula Nasal Cannula Oxygen Flow Rate 6 6 08/17/24 17:17 08/17/24 17:30 08/17/24 17:31 Temperature Pulse Rate 109 H 103 H 105 H Respiratory Rate 32 H 30 H 33 H Blood Pressure 118/60 Pulse Oximetry 90 90 90 Oxygen Delivery Nasal Cannula Nasal Cannula Nasal Cannula Oxygen Flow Rate 6 6 6 08/17/24 17:45 08/17/24 17:46 08/17/24 17:47 Temperature Pulse Rate 108 H 107 H 107 H Respiratory Rate 38 H 36 H 37 H Blood Pressure 107/57 L Pulse Oximetry 89 L 90 Oxygen Delivery Nasal Cannula Nasal Cannula Oxygen Flow Rate 6 6 08/17/24 18:00 08/17/24 18:48 08/17/24 18:51 Temperature 97.9 F Pulse Rate 102 H 102 H Respiratory Rate 22 H 22 H Blood Pressure 114/48 L Pulse Oximetry 91 91 91 Oxygen Delivery Nasal Cannula Nasal Cannula Oxygen Flow Rate 7 6 08/17/24 20:00 08/17/24 23:38 08/17/24 23:55 Temperature Pulse Rate 102 H 102 H 87 Respiratory Rate 20 20 20 Blood Pressure Pulse Oximetry 91 91 94 Oxygen Delivery Nasal Cannula Oxygen Flow Rate 6 6 6 08/17/24 23:59 08/18/24 00:00 08/18/24 00:00 Temperature 97.8 F Pulse Rate 87 87 87 Respiratory Rate 20 20 Blood Pressure 112/55 L Pulse Oximetry 91 91 Oxygen Delivery Nasal Cannula Nasal Cannula Oxygen Flow Rate 5 5 08/18/24 04:00 08/18/24 05:36 08/18/24 05:47 Temperature Pulse Rate 74 79 74 Respiratory Rate 16 18 Blood Pressure Pulse Oximetry 95 96 Oxygen Delivery Oxygen Flow Rate 5 5 Exam Const: General: comfortable and no acute distress Other: currently requiring 5 L supplemental oxygen per nasal cannula. HENMT: Mouth: Yes moist mucous membranes Other: Normocephalic and atraumatic head. Patent posterior oropharynx. No edema/erythema/exudate. Neck: Neck: supple and no JVD Lymphatic: lymphadenopathy not noted Resp: Effort & Inspection: normal respiratory effort Auscultation: rales ( bilateral lower lobes.) Cardio: Rate: regular rate Rhythm: regular rhythm Heart sounds: no gallops, no murmurs and no rubs GI: Inspection: non-distended GI Palp: Yes Soft to palpation, No Tenderness to palpation present (GI), No Guarding due to palpation present (GI) and No Hernia present Auscultation: normal bowel sounds Skin: General skin exam: normal color, no rashes or lesions noted and no erythema Lesions: no lesions noted Rashes: no rashes noted Wounds: no wounds Neuro: General: gait normal Speech: normal speech Motor exam (neuro): 5/5 motor strength present throughout and Normal motor muscle tone present throughout Sensory Exam: normal sensation Extrem: General: normal to inspection, no edema and no pedal edema Other: Patient freely and equally moves all extremities well without deficit. Psych: Mental Status: mental status grossly normal Affect: normal affect H&P: Results Labs Labs: Short CBC 08/17/24 Range/Units 15:00 WBC 27.4 H* (4.8-10.8) K/mm3 Hgb 14.6 (12.0-15.0) g/dL Hct 46.4 (35.0-49.0) % Plt Count 378 (150-420) K/mm3 [facility] 08/17/24 15:00 Sodium 136 L Potassium 4.1 Chloride 108 H Carbon Dioxide 19 L BUN 12 Creatinine 0.81 Glucose 146 H Calcium 8.4 Cardiac Enzymes 08/17/24 Range/Units 15:00 Troponin I < 0.012 (0.000-0.034) ng/mL Liver Function 08/17/24 Range/Units 15:00 Total Bilirubin 1.1 (0.2-1.3) mg/dL AST 30 (14-36) U/L ALT 38 H (6-35) U/L Alkaline Phosphatase 66 (38-126) U/L Albumin 3.2 L (3.5-5.1) g/dL ABG ABG results: pH: 7.46, pCO2: 27.3, PO2: 56.5, HCO3: 19.1 Interpretation: compensated respiratory alkalosis with hypoxia ECG Interpretation: Sinus tachycardia with occasional PVCs rate of 110. Artifact present. Artifact is giving the illusion of potential AZ, no ischemic changes are present. Assessment and Plan Assessment and plan (1) Sepsis without septic shock: Code(s): A41.9 - Sepsis, unspecified organism Status: Acute Assessment and Plan: * Meeting sepsis criteria with initial presentation of hypoxemia, leukocytosis, source of infection being in the lungs as noted per CTA PE protocol * not meeting shock criteria is patient is maintaining normotensive state. * Continue to monitor, trend labs and vital signs. (2) Acute hypoxemic respiratory failure: Code(s): J96.01 - Acute respiratory failure with hypoxia Status: Acute Assessment and Plan: * As noted per CTA PE protocol results, ABG and supplemental oxygen need * provide supplemental oxygen to maintain sats greater than 92%. * DuoNeb q.6 hours scheduled * albuterol q.4 hours p.r.n. shortness breath/wheezing * monitor and trend labs and vital signs * wean for sats greater than 92%. * Incentive Spirometry * Patient will likely need home oxygen evaluation prior to discharge. (3) Multifocal pneumonia: Code(s): J18.9 - Pneumonia, unspecified organism Status: Acute Assessment and Plan: * As evidence for CTA PE protocol. * Meeting sepsis criteria. * Continue treatment with vancomycin and cefepime. * Continue supportive treatment with nebulizers, trending of labs and vital signs and supportive oxygenation. * Repeat chest x-ray in a couple of days to monitor progress. * Continue vancomycin cefepime for now, consider deescalation once improvement is made. * Blood cultures pending x2, sputum cultures pending * urine for Legionella and strep pneumo also pending. (4) Hypertension: Code(s): I10 - Essential (primary) hypertension Status: Chronic Assessment and Plan: * Currently well controlled on metoprolol 50 mg daily. * Blood pressure this morning 112/55. * Continue current therapy and continue to monitor. Quality VTE Prophylaxis VTE prophylaxis: pharmacologic ordered Hospitalist MIPS Advance Care Plan I have confirmed that the patient's Advanced Care Plan is present, code status is documented, or surrogate decision maker is listed in patient medical record.: Yes Medication Reconciliation I have utilized all available resources to obtain, update and review the patients current medications (includes all prescriptions, OTC, herbals, cannabis, and nutritional supplements).: Yes
[2024-08-18] MEDS: SALMET XINAFT/FLUTIC PROPIN 250 MCG/50 MCG INH CAP 1 PUFF INHALATION ×2 (08:09→21:00)
[2024-08-18] MEDS: ENOXAPARIN 40 MG/0.4 ML SYRINGE SUB-Q (08:11)
[2024-08-18] MEDS: ASPIRIN 81 MG ENTERIC TABLET PO (08:12)
[2024-08-18] MEDS: PANTOPRAZOLE 40 MG TABLET PO (08:12)
[2024-08-18] MEDS: METOPROLOL TARTRATE 50 MG TAB PO (08:13)
[2024-08-18] MEDS: CEFEPIME 2 GM/NS 50 ML 2 GM/50 ML BAG IVPB ×3 (08:13→23:44)
[2024-08-18 09:10] LABS: Hematocrit 39.5 % (35.0-49.0); Hemoglobin 12.5 g/dL (12.0-15.0); Mean Corpuscular HGB Conc 31.6 g/dL (32-36); Mean Corpuscular Hemoglobin 29.7 pg (27.0-31.0); Mean Corpuscular Volume 93.8 fL (78.0-102.0); Mean Platelet Volume 9.2 fl (9.2-11.8); Platelet Count Result 271 K/mm3 (150-420); Red Blood Count 4.21 M/mm3 (4.20-5.40)
[2024-08-18 09:11] LABS: White Blood Count 20.4 K/mm3 (4.8-10.8)
--- NOTE | 2024-08-18 09:12 | PC.NURSE ---
Critical WBC 20.4 called to SOFTWARE SALES EXECUTIVE.
[2024-08-18 09:13] LABS: Anisocytosis 1+; Band Neutrophils Percent 0 % (0-6); Eosinophils Percent Manual 1 % (1-6); Hypochromasia 1+; Lymphocytes Absolute Manual 1.63 K/mm3 (1.1-4.5); Lymphocytes Percent Manual 8 % (18-44); Monocytes Percent Manual 2 % (3-9); Neutrophils Absolute Manual 18.15 K/mm3 (1.7-7.2); Neutrophils Percent Manual 89 % (46-73); Platelet Estimate Adequate (Adequate); Poikilocytosis 1+; Total Cells Counted 100
[2024-08-18 09:14] LABS: Schistocytes None Seen
[2024-08-18 09:21] LABS: Alanine Aminotransferase 28 U/L (6-35); Albumin Level 2.8 g/dL (3.5-5.1); Alkaline Phosphatase 60 U/L (38-126); Anion Gap 5 mmol/L (4-12); Aspartate Amino Transferase 20 U/L (14-36); Blood Urea Nitrogen 11 mg/dL (7-17); Calcium 8.3 mg/dL (8.4-10.2); Carbon Dioxide 23 mmol/L (22-30); Chloride 109 mmol/L (98-107); Estimated CRCL calculation 68 ml/min; Estimated Glomerular Filt Rate > 60; Glucose 105 mg/dL (65-110); Osmolality Calculated 283 mOsm/kg (285-295); Potassium 3.9 mmol/L (3.4-5.0); Sodium 137 mmol/L (137-145); Total Protein 5.8 g/dL (6.3-8.2)
--- NOTE | 2024-08-18 09:45 | PC.NURSE ---
Patient changed to inpatient at 0841.
[2024-08-18] MEDS: ACETAMINOPHEN 325 MG TABLET 650 MG PO (23:59)
[2024-08-19] VITALS (20 sets, daily range): BP systolic 114–127; BP diastolic 59–68; PULSE 60–85; RESP 16–20; TEMP 36.1–36.4; O2SAT 88–98
[2024-08-19 05:20] LABS: Basophils Absolute Auto 0.05 K/mm3 (0.00-0.10); Basophils Percent Auto 0.5 % (0.0-1.0); Eosinophils Absolute Auto 0.63 K/mm3 (0.02-0.50); Eosinophils Percent Auto 6.8 % (1.0-6.0); Hematocrit 42.5 % (35.0-49.0); Immature Granulocyte Absolute 0.06 K/mm3 (0.00-0.00); Immature Granulocyte Percent A 0.6 % (0.0-0.0); Lymphocytes Absolute Auto 1.24 K/mm3 (1.10-4.50); Lymphocytes Percent Auto 13.4 % (18.0-42.0); Mean Corpuscular HGB Conc 30.6 g/dL (32-36); Mean Corpuscular Hemoglobin 29.6 pg (27.0-31.0); Mean Corpuscular Volume 96.8 fL (78.0-102.0); Mean Platelet Volume 9.8 fl (9.2-11.8); Monocytes Absolute Auto 0.44 K/mm3 (0.10-0.90); Monocytes Percent Auto 4.8 % (2.0-11.0); Neutrophils Absolute Auto 6.84 K/mm3 (1.70-7.20); Neutrophils Percent Auto 73.9 % (50.0-70.0); Platelet Count Result 227 K/mm3 (150-420); Red Blood Count 4.39 M/mm3 (4.20-5.40); Red Cell Distribution Width 14.1 % (11.6-14.4); White Blood Count 9.3 K/mm3 (4.8-10.8)
[2024-08-19 05:32] LABS: Alanine Aminotransferase 25 U/L (6-35); Albumin Level 3.1 g/dL (3.5-5.1); Alkaline Phosphatase 58 U/L (38-126); Anion Gap 4 mmol/L (4-12); Aspartate Amino Transferase 17 U/L (14-36); Bilirubin,Total 0.6 mg/dL (0.2-1.3); Blood Urea Nitrogen 11 mg/dL (7-17); Calcium 8.2 mg/dL (8.4-10.2); Carbon Dioxide 25 mmol/L (22-30); Chloride 109 mmol/L (98-107); Estimated CRCL calculation 64 ml/min; Estimated Glomerular Filt Rate > 60; Glucose 103 mg/dL (65-110); Osmolality Calculated 285 mOsm/kg (285-295); Sodium 138 mmol/L (137-145); Total Protein 6.2 g/dL (6.3-8.2)
[2024-08-19] MEDS: IPRATROPIUM 0.5 MG/ALBUTEROL SULFATE 2.5 MG AMPUL.NEB 3 ML INHALATION ×2 (05:35→13:20)
[2024-08-19] MEDS: ENOXAPARIN 40 MG/0.4 ML SYRINGE SUB-Q (09:02)
[2024-08-19] MEDS: CEFEPIME 2 GM/NS 50 ML 2 GM/50 ML BAG IVPB (09:02)
[2024-08-19] MEDS: SALMET XINAFT/FLUTIC PROPIN 250 MCG/50 MCG INH CAP 1 PUFF INHALATION (09:02)
[2024-08-19] MEDS: ASPIRIN 81 MG ENTERIC TABLET PO (09:03)
[2024-08-19] MEDS: METOPROLOL TARTRATE 50 MG TAB PO (09:03)
[2024-08-19] MEDS: PANTOPRAZOLE 40 MG TABLET PO (09:03)
--- NOTE | 2024-08-19 12:20 | P.DS_ITS ---
DS: Admitting Diagnosis Discharge Date 08/19/2024 Admitting Diagnosis Acute respiratory failure with hypoxia secondary to pneumonia DS: Discharge Diagnosis Discharge Diagnosis (1) Sepsis without septic shock: Code(s): A41.9 - Sepsis, unspecified organism Status: Acute (2) Acute hypoxemic respiratory failure: Code(s): J96.01 - Acute respiratory failure with hypoxia Status: Acute (3) Multifocal pneumonia: Code(s): J18.9 - Pneumonia, unspecified organism Status: Acute (4) Hypertension: Code(s): I10 - Essential (primary) hypertension Status: Chronic DS: Summary Hospital Course Reason for hospitalization: acute respiratory failure with hypoxia secondary to multifocal pneumonia Hospital Course: Admission: This is a very pleasant 59-year-old female patient with past medical history of coronary artery disease status post ME, asthma and hypertension who presented to the emergency room yesterday afternoon with complaints of dyspnea that was increasing. Patient was recently hospitalized here for a pneumonia and treated with azithromycin but pushed for discharge on August 16 secondary to it being her '[age] birthday and as she had improved she was discharged home at that time in stable condition. Once home she developed some increased dyspnea yesterday, called 911 and EMS found her 83% on room air requiring non-rebreather to incr ease her sats. Patient was brought to the emergency room where re-evaluation was performed and it was discovered that she had developed a worsening leukocytosis with WBCs of 27.4, CTA PE protocol with negative PE but there was progression of multifocal pneumonia. Patient eventually was weaned to nasal cannula at 6 L and then placed in Med/surg for continued treatment on vancomycin and cefepime. patient is a full code with noted allergies Augmentin, Cipro, morphine, penicillin, hydrocodone and Darvocet. Her metabolic panel is unremarkable, troponin normal at 0.012, EKG showing sinus tach with occasional PVCs with a rate of 110 and a lot of artifact causing concern for ME, however patient with normal troponin and no acute symptoms of ME. MRSA swab is negative. Her lactic acid performed in ER was 2.1. Coags were unremarkable. D-dimer was 1.43 which prompted the CTA PE protocol. Patient has pending labs for Legionella and strep pneumo. Sputum culture and blood cultures x2 are also pending. This morning patient states she feels a little improved, she is still requiring 5 L of nasal cannula this morning with sats of 96%. She is afebrile, non tachycardic, not tachypneic and normotensive. She has no other acute complaints such as nausea, vomiting, diarrhea, chest pain. She does report an intermittent productive cough. Hospital course: Patient was started on IV Vanc and cefepime and de-escalated to IV cefepime once MRSA was negative. She also received DuoNebs and encouraged Her to continue the use her incentive spirometer. leukocytosis improved patient remained afe brile and blood cultures negative continue to wean oxygen as tolerated but prior to discharge did a home oxygen walk study which time patient was not needing any oxygen at rest however she was needing 2 L supplemental oxygen with exertion. Patient was discharged on Cefuroxime and azithromycin base of allergies for coverage of multifocal pneumonia. patient reported overall improvement to her symptoms felt she with close to her baseline she was discharged home with family provided with supplemental oxygen. I did encourage her to reduce allergens due to her underlying insert continue to use her oxygen activity. Status at Discharge Functional status at discharge: independent ambulation Overall status at discharge: patient is progressing back to baseline Time Spent with Patient Time attestation: Total time spent providing and/or coordinating discharge services: Time spent: Greater than 30 minutes Exam Const: General: comfortable and no acute distress Other: currently requiring 5 L supplemental oxygen per nasal cannula. HENMT: Mouth: Yes moist mucous membranes Other: Normocephalic and atraumatic head. Patent posterior oropharynx. No edema/erythema/exudate. Neck: Neck: supple and no JVD Lymphatic: lymphadenopathy not noted Resp: Effort & Inspection: normal respiratory effort Auscultation: rales ( bilateral lower lobes.) Cardio: Rate: regular rate Rhythm: regular rhythm Heart sounds: no gallops, no murmurs and no rubs GI: Inspection: non-distended Auscultation: normal bowel sounds Skin: General skin exam: normal color, no rashes or lesions noted, no erythema, No lesion and No rashes Lesions: no lesions noted Rashes: no rashes noted Wounds: no wounds Neuro: General: gait normal Speech: normal speech Motor exam (neuro): 5/5 motor strength present throughout and Normal motor muscle tone present throughout Sensory Exam: normal sensation Extrem: General: normal to inspection, no edema and no pedal edema Other: Patient freely and equally moves all extremities well without deficit. Psych: Mental Status: mental status grossly normal Affect: normal affect DS: Data Data Completed and Pending Labs on day of discharge: Labs from last 24 hours 08/19/24 05:15 WBC 9.3 RBC 4.39 Hgb 13.0 Hct 42.5 MCV 96.8 MCH 29.6 MCHC 30.6 L RDW 14.1 Plt Count 227 MPV 9.8 Immature Gran % (Auto) 0.6 H Neut % (Auto) 73.9 H Lymph % (Auto) 13.4 L [place] % (Auto) 4.8 Eos % (Auto) 6.8 H Baso % (Auto) 0.5 Lymph # (Auto) 1.24 [place] # (Auto) 0.44 Eos # (Auto) 0.63 H Baso # (Auto) 0.05 Abs Immat Gran (auto) 0.06 H Absolute Neuts (auto) 6.84 Absolute Nucleated RBC 0.00 Nucleated RBC % 0.0 Sodium 138 Potassium 4.0 Chloride 109 H Carbon Dioxide 25 Anion Gap 4 BUN 11 Creatinine 0.92 Estim Creat Clear Calc 64 Estimated GFR > 60 Glucose 103 Calculated Osmolality 285 Calcium 8.2 L Total Bilirubin 0.6 AST 17 ALT 25 Alkaline Phosphatase 58 Total Protein 6.2 L Albumin 3.1 L Imaging Radiologist's impression: EXAMINATION: CTA chest PE protocol DATE: 08/17/2024 16:50 INDICATION: Shortness of breath. TECHNIQUE: Computed tomography (CT) pulmonary angiogram of the chest was performed with 100 mL Omnipaque-350 intravenous contrast. Additional 3D reconstructions utilizing coronal maximum intensity projection (MIP) were performed. Automated exposure control and iterative reconstruction technique were employed. The dose-length product was 361.83 mGy-cm. COMPARISON: CT dated 08/13/2024 FINDINGS: Evaluation is significantly limited in the subsegmental pulmonary arteries due to combination of streak artifact, quantum mottle related to patient body habitus and small to moderate amount of motion artifact. No definitive pulmonary embolism identified. There is increased paving pattern throughout both lungs with combination of septal line thickening and mosaic attenuation with extensive groundglass opacities. No pleural effusion. Heart size is normal. No pericardial effusion. Thoracic aorta is normal in caliber with no dissection. No pathologically enlarged thoracic lymphadenopathy. Cholecystectomy clips in the gallbladder fossa. Small sliding-type hiatal hernia. Visualized upper abdomen is otherwise unremarkable. Mild thoracic spondylosis with chronic mild anterior wedging of a few mid thoracic vertebral bodies. IMPRESSION: 1. No definitive pulmonary embolism with evaluation mildly limited in the segmental and more significantly limited in the subsegmental pulmonary arteries due to comminution of streak and motion artifact and swallows quantum mottle related to patient body habitus. 2. Progression of diffuse crazy paving pattern throughout both lungs with differential including worsening moderate pulmonary edema, pneumonia or hypersensitivity pneumonitis. 3. Small sliding-type hiatal hernia. Discharge Plan Discharge Attending physician on discharge: Adia Brantley Consulting providers: Alycia Drake; Grace Betancourt; Alli Lawson; Susana Rodas; Manolo Yen Discharging Clinician: Grace Betancourt Anticipated Discharge Date/Time: 08/19/24 12:15 Patient Disposition: Home Activity: as tolerated Diet: heart healthy Discharge Instructions: 1). Pneumonia * I have prescribed oral antibiotics please take and complete as indicated even if feeling better * continue to use your incentive spirometer * may use acetaminophen for mild fevers and pain * encourage oral hydration * it was determined you will continue to need supplemental oxygen 2 L with any activity please review oxygen education attached How can you care for yourself at home? ? Keep track of any new symptoms or changes in your symptoms. ? Rest until you feel better. ? Be safe with medicines. Take your medicines exactly as prescribed. Call your doctor if you think you are having a problem with your medicine. ? Do not drive after taking a prescription pain medicine. ? Ensure to follow-up with primary care physician as indicated and provide updated medication list provided to you at discharge. When should you call for help? Call 911 anytime you think you may need emergency care. For example, call if: ? You passed out (lost consciousness). Call your doctor now or seek immediate medical care if: ? You have new symptoms like fever, difficulty breathing, Chest pain, vomiting, or rash. ? You have new or different pain. ? You are confused and are having trouble thinking clearly. ? Your symptoms are getting worse. Watch closely for changes in your health, and be sure to contact your doctor if: ? You do not get better as expected. Patient Instructions: Antibiotic Form, Cefuroxime (By mouth), Azithromycin (By mouth), Fall Prevention for Older Adults (DC), Using Oxygen at Home (DC), Community Acquired Pneumonia (DC), Hypoxia (GEN), Pulse Oximetry (DC) Patient Language: Nepali Stand Alone Forms: General Discharge Information Follow-up/Referrals: Chantelle,JESSIKA Rolon [Primary Care Provider] - 09/02/24 2:30 pm Discharge Medications: New cefuroxime axetil 250 mg Tablet 500 mg PO Q12HR Qty: 18 0RF azithromycin [Zithromax] 250 mg Tablet 250 mg PO DAILY Qty: 4 0RF Continued aspirin [Kory Low Dose Aspirin] 81 mg Tablet,Delayed Release (Dr/Ec) 81 mg PO DAILY metoprolol tartrate 50 mg tablet 50 mg PO DAILY albuterol sulfate 90 mcg/actuation HFA aerosol inhaler 2 puff INHALATION Q4-6H PRN (Reason: Shortness Of Breath) fluticasone propion-salmeterol 113-14 mcg/actuation aerosol powdr breath activated 1 puff INHALATION DAILY omeprazole 20 mg capsule,delayed release(DR/EC) 20 mg PO DAILY ipratropium-albuterol 0.5 mg-3 mg(2.5 mg base)/3 mL solution for nebulization 3 ml inhalation Q6HRT Qty: 90 0RF Discontinued azithromycin [Zithromax Z-Vince] 250 mg tablet See Rx Instructions .ROUTE .COMPLEX Qty: 6 0RF Rx Instructions: For 250 mg dose pack: take 500 mg today (day 1), then 250 mg for 4 days (days 2-5) Date of admission: 08/18/24 08:41 Primary Care Provider: Chantelle*Mike Kraus Admitting Provider: Adia Brantley Attending physician on admission: Adia Brantley Condition: Stable Quality VTE Prophylaxis VTE prophylaxis: pharmacologic ordered -Patient's previous records reviewed on admission -ER notes reviewed in detail on admission -discussed all findings and current treatment plan with patient/Family/POA -Consultations reviewed for recommendations -Patient's disposition for safe discharge discussed with case maker Dictation performed by [employer] direct speech recognition software, therefore vacuum system tester variants and typographical errors may occur. Hospitalist MIPS Heart Failure (Exclusion) Patient has history of Heart Transplant or Left Ventricular Assistive Device?: No IF YES, STOP HERE Heart Failure (Qualifier) Patient has current or prior documentation of LVEF less than or equal to 40%, or mod/servere depressed LVSF?: No IF NO, STOP HERE
--- NOTE | 2024-08-19 12:20 | HOMEO2EVAL ---
Evaluation was performed at [facility] [place] Home Oxygen Evaluation RC: Home Oxygen (O2) Evaluation Start: 08/19/24 10:05 Freq: ONCE Status: Active Protocol: RPE Activity Type Activity Date Activity User E-sign Co-sign Detail Recorded Client Recorded Date Recorded By Document 08/19/24 10:40 RES [id number] 08/19/24 11:01 RES Document 08/19/24 10:41 RES [id number] 08/19/24 11:01 RES Document 08/19/24 10:42 RES [id number] 08/19/24 11:01 RES Document 08/19/24 10:43 RES [id number] 08/19/24 11:01 RES Document 08/19/24 10:44 RES [id number] 08/19/24 11:01 RES Document 08/19/24 10:45 RES [id number] 08/19/24 11:01 RES Document 08/19/24 10:46 RES [id number] 08/19/24 11:01 RES Document 08/19/24 10:47 RES [id number] 08/19/24 11:01 RES Document 08/19/24 10:48 RES [id number] 08/19/24 11:01 RES Document 08/19/24 10:49 RES [id number] 08/19/24 11:01 RES 08/19/24 08/19/24 08/19/24 10:40 10:41 10:42 Home O2 Evaluation [Oxygen] -Test Phase Resting Exercise Exercise -Oxygen Delivery Room Air Room Air Room Air -Oxygen Flow Rate (L/min) -Fraction of Inspired Oxygen (%) 21 [Pulse Oximetry] -Pulse Oximetry (90-100 %) 92 89 L 88 L [Pulse Rate] -Pulse Rate (60-100 beats/min) 62 81 82 [Evaluation] -Activity Tolerance Good Good Good -Rating of Perceived Dyspnea (PD) +1 Mild, +1 Mild, +1 Mild, Noticeable to Noticeable to Noticeable to the Participant the Participant the Participant but Not to an but Not to an but Not to an Observer Observer Observer -Rate of Perceived Exertion (PE) 6 Very, very 6 Very, very 6 Very, very Query Text:Click the Protocol Button light light light to View the RPE Scale [Exercise] -Ambulation Distance (feet) -Ambulation Distance (meters) [Comments] -Home Oxygen Evaluation Comments Initiated patient on 1lpm Nasal Cannula [Charges] -Evaluation Charges O2 Evaluation Charge 08/19/24 08/19/24 08/19/24 10:43 10:44 10:45 Home O2 Evaluation [Oxygen] -Test Phase Exercise Exercise Exercise -Oxygen Delivery Nasal Cannula Nasal Cannula Nasal Cannula -Oxygen Flow Rate (L/min) 1 2 2 -Fraction of Inspired Oxygen (%) 24 28 24 [Pulse Oximetry] -Pulse Oximetry (90-100 %) 88 L 90 92 [Pulse Rate] -Pulse Rate (60-100 beats/min) 85 82 84 [Evaluation] -Activity Tolerance Good Good Good -Rating of Perceived Dyspnea (PD) +1 Mild, +1 Mild, +1 Mild, Noticeable to Noticeable to Noticeable to the Participant the Participant the Participant but Not to an but Not to an but Not to an Observer Observer Observer -Rate of Perceived Exertion (PE) 6 Very, very 6 Very, very 6 Very, very Query Text:Click the Protocol Button light light light to View the RPE Scale [Exercise] -Ambulation Distance (feet) -Ambulation Distance (meters) [Comments] -Home Oxygen Evaluation Comments increased patient to 2lpm [Charges] -Evaluation Charges 08/19/24 08/19/24 08/19/24 10:46 10:47 10:48 Home O2 Evaluation [Oxygen] -Test Phase Exercise Exercise Exercise -Oxygen Delivery Nasal Cannula Nasal Cannula Nasal Cannula -Oxygen Flow Rate (L/min) 2 2 2 -Fraction of Inspired Oxygen (%) 24 24 24 [Pulse Oximetry] -Pulse Oximetry (90-100 %) 91 91 92 [Pulse Rate] -Pulse Rate (60-100 beats/min) 82 81 82 [Evaluation] -Activity Tolerance Good Good Good -Rating of Perceived Dyspnea (PD) +1 Mild, +1 Mild, +1 Mild, Noticeable to Noticeable to Noticeable to the Participant the Participant the Participant but Not to an but Not to an but Not to an Observer Observer Observer -Rate of Perceived Exertion (PE) 6 Very, very 6 Very, very 6 Very, very Query Text:Click the Protocol Button light light light to View the RPE Scale [Exercise] -Ambulation Distance (feet) -Ambulation Distance (meters) [Comments] -Home Oxygen Evaluation Comments [Charges] -Evaluation Charges 08/19/24 10:49 Home O2 Evaluation [Oxygen] -Test Phase Resting -Oxygen Delivery Nasal Cannula -Oxygen Flow Rate (L/min) 2 -Fraction of Inspired Oxygen (%) 24 [Pulse Oximetry] -Pulse Oximetry (90-100 %) 92 [Pulse Rate] -Pulse Rate (60-100 beats/min) 80 [Evaluation] -Activity Tolerance Good -Rating of Perceived Dyspnea (PD) +1 Mild, Noticeable to the Participant but Not to an Observer -Rate of Perceived Exertion (PE) 6 Very, very Query Text:Click the Protocol Button light to View the RPE Scale [Exercise] -Ambulation Distance (feet) 450 -Ambulation Distance (meters) 137.15 [Comments] -Home Oxygen Evaluation Comments [Charges] -Evaluation Charges
[2024-08-19] MEDS: ACETAMINOPHEN 325 MG TABLET 650 MG PO (12:46)
--- NOTE | 2024-08-19 14:40 | PC.NURSE ---
Discharge instructions reviewed with patient and family. RT reviewed oxygen operation with patient and family. Patient taken off floor per wheelchair and assisted into private vehicle.
[2024-08-21 18:17] LABS: Pneumococcal Antigen Urine NOT DETECTED
[2024-08-27 18:27] LABS: Legionella pneumophila Ag Ur NOT DETECTED
== END 2024-08-19 14:40 | disposition home or self-care (01) | DRG 720 ==
LOC: CHSED 17:30 → CHS2ND 17:32
PROVIDERS: Nurse Practitioner Family; Admitting Provider Internal Medicine; Emergency Provider Emergency Medicine; PCP Physician Assistant; Visit Provider Internal Medicine
DX: A41.9 Sepsis, unspecified organism (principal); J18.9 Pneumonia, unspecified organism; J96.01 Acute respiratory failure with hypoxia; I25.10 Atherosclerotic heart disease of native coronary artery without angina pectoris; I25.2 Old myocardial infarction; I10 Essential (primary) hypertension; J45.909 Unspecified asthma, uncomplicated; Z79.82 Long term (current) use of aspirin; Z88.0 Allergy status to penicillin
CPT/HCPCS: 36415; 36600; 71045; 71275; 80053; 80307; 82077; 82805; 83605; 83735; 83880; 84484; 85025; 85027; 85380; 85610; 85730; 86001; 87040; 87070; 87205; 87449; 87637; 87641; 87899; 93005; 94618; 94640; 96365; 96366; 96367; 96372; 96375; 99285; A9270; G0378; G0379; J0692; J1650; J3370; Q9967